=== PATIENT | female | born 1965 | race Caucasian/White ===

== ENCOUNTER 2016-09-22 23:40 | Inpatient (IN) | payer MEDICAID ==
[~2016-09-22] VITALS: Ht 139.7 cm; Wt 92.0 kg
[~2016-09-22 23:40] MED LIST: ALDA50TA2 PO; AMBI10TA PO; CEPH-460 PO; FERR325T PO; FOLI1TAB4 PO; HYDR-2374 PO; MAGN1TAB14 PO; MIDO5TAB PO; MOBI7.5T PO; NEBULIZER1 MI1; OMEP40CA2 PO; OXYGENTANK NAS.CANULA; POTA10CA PO; PROZ20CA11 PO; REGL10TA5 PO; ROPI0.25 PO; WALKER WHEELS/F1 MIS; XANA1TAB2 PO; ZOFR4TAB PO
[2016-09-22] MEDS ORDERED: SODIUM CHLOR 0.9% 1000 ML INJ 1,000 ML IV SCH (23:55)
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
[2016-09-23] VITALS (10 sets, daily range): BP systolic 92–153; BP diastolic 53–72; PULSE 58–105; RESP 16–20; TEMP 97.3–99.6; O2SAT 95–100
[2016-09-23] MEDS ORDERED: MORPHINE SULFATE 4 MG/ML INJ IV PUSH ONE
[2016-09-23] MEDS ORDERED: ONDANSETRON HCL 4 MG/2 ML VIAL IVP ONE
[2016-09-23] MEDS ORDERED: SODIUM CHLORIDE 0.9% FLUSH 10 ML FLUSH IV FLUSH PRN
[2016-09-23] MEDS ORDERED: FAMOTIDINE 20 MG/2 ML VIAL IV PUSH ONE
[2016-09-23 00:35] LABS: AUTOMATED NEUTROPHIL # 14.4 TH/MM3 (1.8-7.7); BASOPHIL % 0.2 % (0.0-2.0); EOSINOPHIL % 0.1 % (0.0-4.0); HEMATOCRIT 40.3 % (35.0-46.0); HEMO FLAGS DIFF FINAL; LYMPH % 6.4 % (9.0-44.0); MEAN CELL VOLUME 100.1 FL (80.0-100.0); MEAN CORPUSCULAR HEMOGLOBIN 32.8 PG (27.0-34.0); MEAN CORPUSCULAR HGB CONC 32.7 % (32.0-36.0); MONO % 3.4 % (0.0-8.0); NEUT % 89.9 % (16.0-70.0); PLATELET COUNT 356 TH/MM3 (150-450); RED BLOOD COUNT 4.03 MIL/MM3 (4.00-5.30); RED CELL DISTRIBUTION WIDTH 14.1 % (11.6-17.2)
[2016-09-23 00:54] LABS: ALT (GPT) 20 U/L (10-53); ANION GAP 27 MEQ/L (5-15); AST (GOT) 32 U/L (15-37); BICARBONATE 8.8 MEQ/L (21.0-32.0); BLOOD UREA NITROGEN 7 MG/DL (7-18); CHLORIDE 105 MEQ/L (98-107); GLOMERULAR FILTRATION RATE 103 ML/MIN (>89); POTASSIUM 3.5 MEQ/L (3.5-5.1); SODIUM (NA) 141 MEQ/L (136-145)
--- NOTE | 2016-09-23 00:55 | RADRPT ---
EXAM DATE/TIME: 09/23/2016 00:33 [facility] COMPARISON: CT ABDOMEN & PELVIS W/O CONTRAST, February 27, 2016, 19:43. INDICATIONS : Abdominal pain with nausea, vomiting and diarrhea. ORAL CONTRAST: No oral contrast ingested. RADIATION DOSE: 4.48 CTDIvol (mGy) MEDICAL HISTORY : Congestive heart failure. Chronic obstructive pulmonary disease. Cardiovascular diseaseCVA. Hypertens ion. Crohn's. gerd. cervical dysplasia. SURGICAL HISTORY : Appendectomy. Cholecystectomy.Back surgery. Cardiac stents. ENCOUNTER: Initial ACUITY: 1 day PAIN SCALE: 7/10 LOCATION: Bilateral abdomen TECHNIQUE: Volumetric scanning of the abdomen and pelvis was performed. Using automated exposure control and ad justment of the mA and/or kV according to patient size, radiation dose was kept as low as reasonably achievable to obtain optimal diagnostic quality images. DICOM format image data is available electro nically for review and comparison. FINDINGS: LOWER LUNGS: The visualized lower lungs are clear. No pleural effusion. LIVER: Homogeneous density without lesion noncontrast technique. There is no dilation of the biliary tree. Cholecystectomy. SPLEEN: Normal size without lesion. PANCREAS: Within normal limits. KIDNEYS: Normal in size and shape. There is no mass, stone, or hydronephrosis. ADRENAL GLANDS: Within normal limits. VASCULAR: There is no aortic aneurysm. BOWEL/MESENTERY: No dilated loops of small or large bowel. Stable appearance to the right and transverse colon with p rominence of the submucosal fatty layer. No evidence of ascites and the fat planes about the colon a re intact. ABDOMINAL WALL: Within normal limits. RETROPERITONEUM: There is no lymphadenopathy. BLADDER: No wall thickening or mass. REPRODUCTIVE: Within normal limits. INGUINAL: There is no lymphadenopathy or hernia. MUSCULOSKELETAL: Intact hardware lower lumbar spine with transpedicular screws at L5 and S1. There is induration of t he fat of the proximal right inner thigh. Stable subcutaneous lesion anterior right thigh, possibly representing sebaceous cyst. CONCLUSION: 1. No evidence of pleural effusion or ascites. 2. Induration of the subcutaneous tissues of the medial right proximal thigh. 3. No dilated loops of small or large bowel. Arnol Trujillo MD on September 23, 2016 at 0:49 Board Certified Radiologist. This report was verified electronically.
[2016-09-23 00:56] LABS: ALKALINE PHOSPHATASE 146 U/L (45-117); TOTAL BILIRUBIN ADULT 0.6 MG/DL (0.2-1.0)
[2016-09-23 02:18] LABS: BLOOD GAS VENOUS BASE EXCESS -20.1 mmol/L (-2-2); BLOOD GAS VENOUS HCO3 7 mmol/L (22-26); BLOOD GAS VENOUS O2 CONTENT 13.5 Vol % (9.0-17.0); BLOOD GAS VENOUS O2 HGB SAT 76 % (70-76); BLOOD GAS VENOUS PCO2 21 mmHg (44-48); BLOOD GAS VENOUS PO2 48 mmHg (35-40); BLOOD GAS VENOUS pH 7.16 (7.360-7.400); CRITICAL VALUE YES; FIO2 21 %; OXYGEN DEVICE ROOM AIR; STAT YES; TEMP CORR TO 98.6
[2016-09-23] MEDS ORDERED: SODIUM BICARBONATE 8.4% INJ 50 MEQ/50 ML SYR IV PUSH ONE (02:30)
[2016-09-23] MEDS ORDERED: SODIUM CHLOR 0.9% 1000 ML INJ 1,000 ML IV ONE (02:45)
[2016-09-23 02:47] LABS: BLOOD, URINE TRACE (NEG); COMMENT (UR) CULT NOT INDICATED; CULTURE IF INDICATED CULT NOT INDICATED; GLUCOSE,URINE NEG (NEG); HYALINE CAST, URINE 3 /lpf (RARE); KETONE, URINE 150 mg/dL (NEG); MUCUS URINE FEW /lpf (OCC); NITRITE,URINE NEG (NEG); URINE COLOR LIGHT-YELLOW (YELLW/STRAW)
[2016-09-23] MEDS ORDERED: NALOXONE HCL 0.4 MG/ML AMP IV PRN (04:00)
[2016-09-23] MEDS ORDERED: ONDANSETRON HCL 4 MG/2 ML VIAL IVP PRN (04:00)
[2016-09-23] MEDS ORDERED: BISACODYL 10 MG SUPP RECTAL PRN (04:00)
[2016-09-23] MEDS ORDERED: ACETAMINOPHEN 325 MG TAB PO PRN (04:00)
[2016-09-23] MEDS ORDERED: SODIUM BICARBONATE 8.4% INJ 50 MEQ in SODIUM CHLOR 0.45% 1000 ML INJ 1,000 ML IV SCH (05:00)
[2016-09-23] MEDS: HEPARIN SODIUM - SQ 10,000 UNITS/ML VIAL SQ SCH ×2 (05:23→17:06)
[2016-09-23] MEDS: MORPHINE SULFATE 4 MG/ML INJ IV PRN ×2 (05:41→22:20)
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
[2016-09-23] MEDS ORDERED: RESP: ALBUTEROL 2.5 MG/IPRATROPIUM 0.5 MG NEB (PRN) NEB (08:30)
[2016-09-23] MEDS: SODIUM CHLORIDE 0.9% FLUSH 10 ML FLUSH IV FLUSH SCH ×2 (09:00→22:02)
[2016-09-23] MEDS: FAMOTIDINE 20 MG/2 ML VIAL IV PUSH SCH ×2 (09:34→22:03)
[2016-09-23] MEDS: NICOTINE 7 MG/24 HR PATCH T-DERMAL SCH (09:35)
[2016-09-23] MEDS: ACETAMINOPHEN 325 MG TAB PO PRN ×2 (09:35→17:05)
[2016-09-23] MEDS: FLUoxetine HCL 20 MG CAP PO SCH (09:35)
[2016-09-23] MEDS: RESP: ALBUTEROL 2.5 MG/IPRATROPIUM 0.5 MG NEB (SCH) NEB ×2 (15:41→19:53)
[2016-09-23 18:50] LABS: AMPHETAMINE, URINE NEG (NEG); BARBITURATES, URINE NEG (NEG); COCAINE, URINE NEG (NEG)
[2016-09-23 21:03] LABS: BICARBONATE 17.6 MEQ/L (21.0-32.0)
[2016-09-23 21:14] LABS: POTASSIUM 2.7 MEQ/L (3.5-5.1)
[2016-09-23] MEDS ORDERED: [UNRECOGNIZED DRUG - OTHER] IV SCH (21:45)
[2016-09-23] MEDS ORDERED: SODIUM BICARBONATE IV SCH (21:45)
[2016-09-23] MEDS ORDERED: POTASSIUM CHLORIDE IV SCH (21:45)
[2016-09-23] MEDS ORDERED: POTASSIUM CHLORIDE 20 MEQ CONTROLLED RELEASE TAB PO SCH (22:00)
[2016-09-23] MEDS: SODIUM BICARBONATE 8.4% INJ 50 MEQ in SODIUM CHLOR 0.45% 1000 ML INJ 1,000 ML IV SCH (22:15)
[2016-09-23] MEDS: [UNRECOGNIZED DRUG - OTHER] IV SCH (22:15)
[2016-09-23] MEDS: POTASSIUM CHLORIDE IV SCH (22:15)
[2016-09-23] MEDS: SODIUM BICARBONATE IV SCH (22:15)
[2016-09-24] VITALS (11 sets, daily range): BP systolic 101–118; BP diastolic 56–69; PULSE 58–79; RESP 16–18; TEMP 97.3–98.1; O2SAT 95–98
[2016-09-24] MEDS: MORPHINE SULFATE 4 MG/ML INJ IV PRN ×6 (02:36→21:24)
[2016-09-24] MEDS: HEPARIN SODIUM - SQ 10,000 UNITS/ML VIAL SQ SCH ×2 (04:00→16:49)
[2016-09-24] MEDS: SODIUM CHLORIDE 0.9% FLUSH 10 ML FLUSH IV FLUSH SCH ×2 (07:30→21:25)
[2016-09-24] MEDS: REMOVE OLD PATCH T-DERMAL SCH (07:32)
[2016-09-24] MEDS: FLUoxetine HCL 20 MG CAP PO SCH (07:32)
[2016-09-24] MEDS: FOLIC ACID 1 MG TAB PO SCH (07:32)
[2016-09-24] MEDS: NICOTINE 7 MG/24 HR PATCH T-DERMAL SCH (07:32)
[2016-09-24] MEDS: THIAMINE HCL 100 MG TAB PO SCH (07:32)
[2016-09-24] MEDS: FAMOTIDINE 20 MG/2 ML VIAL IV PUSH SCH ×2 (07:33→21:23)
[2016-09-24] MEDS: LACTULOSE SYRUP 20 GM/30 ML CUP PO PRN (07:37)
[2016-09-24] MEDS: SENNOSIDES 8.6 MG TAB PO PRN (07:37)
[2016-09-24] MEDS: RESP: ALBUTEROL 2.5 MG/IPRATROPIUM 0.5 MG NEB (SCH) NEB ×4 (08:02→21:33)
[2016-09-24] MEDS: SODIUM BICARBONATE 8.4% INJ 50 MEQ in SODIUM CHLOR 0.45% 1000 ML INJ 1,000 ML IV SCH ×2 (08:06→19:15)
[2016-09-24 08:57] LABS: BICARBONATE 21.7 MEQ/L (21.0-32.0); MAGNESIUM 1.3 MG/DL (1.5-2.5)
[2016-09-24 09:19] LABS: POTASSIUM 2.7 MEQ/L (3.5-5.1)
[2016-09-24] MEDS: POTASSIUM CHLORIDE IV SCH (09:22)
[2016-09-24] MEDS: SODIUM BICARBONATE IV SCH (09:22)
[2016-09-24] MEDS: [UNRECOGNIZED DRUG - OTHER] IV SCH (09:22)
[2016-09-24] MEDS: POTASSIUM CHLOR 20 MEQ PREMIX 100 ML IV SCH ×2 (10:43→13:10)
[2016-09-24] MEDS ORDERED: POTASSIUM CHLORIDE 20 MEQ CONTROLLED RELEASE TAB PO ONE (10:45)
[2016-09-24 12:53] LABS: BASOPHIL % 0.3 % (0.0-2.0); EOSINOPHIL # 0.5 TH/MM3 (0-0.4); EOSINOPHIL % 7.5 % (0.0-4.0); HEMATOCRIT 29.5 % (35.0-46.0); HEMO FLAGS DIFF FINAL; LYMPH % 23.6 % (9.0-44.0); LYMPHOCYTE # 1.5 TH/MM3 (1.0-4.8); MEAN CELL VOLUME 97.4 FL (80.0-100.0); MEAN CORPUSCULAR HEMOGLOBIN 33.6 PG (27.0-34.0); MEAN CORPUSCULAR HGB CONC 34.5 % (32.0-36.0); MONO % 5.3 % (0.0-8.0); NEUT % 63.3 % (16.0-70.0); PLATELET COUNT 169 TH/MM3 (150-450); RED BLOOD COUNT 3.03 MIL/MM3 (4.00-5.30); RED CELL DISTRIBUTION WIDTH 13.7 % (11.6-17.2); WHITE BLOOD COUNT 6.3 TH/MM3 (4.0-11.0)
--- NOTE | 2016-09-24 13:48 | HHI.PR ---
Subjective Remarks tolerating clear liquid diet well no n/v no diarrhea still with epigastric pain, feels tired no fever no sob no cp Objective Objective Results - Vital Signs Date Time Temp Pulse Resp B/P Pulse Ox O2 Delivery O2 Flow Rate FiO2 09/24/16 11:52 97.3 68 17 101/59 97 09/24/16 09:25 72 09/24/16 08:03 96 09/24/16 08:00 97.3 66 18 113/68 98 09/24/16 04:00 97.5 68 18 102/59 98 09/24/16 02:59 66 09/24/16 00:00 98.1 79 16 118/69 95 09/23/16 22:17 110/67 09/23/16 20:00 98.0 82 20 97/53 95 09/23/16 19:56 95 21 09/23/16 18:05 18 09/23/16 16:00 97.8 80 16 96/64 97 I/O 09/23/16 09/23/16 09/23/16 09/24/16 09/24/16 09/24/16 07:00 15:00 23:00 07:00 15:00 23:00 Intake Total 700 ml 250 ml 1113 ml Balance 700 ml 250 ml 1113 ml Intake Oral 700 ml 250 ml IV Total 1113 ml # Voids 2 3 # Bowel Movements 0 0 Result Diagram: 09/24/16 1215 09/24/16 1215 Imaging Last Impressions Abdomen/Pelvis CT 09/22/16 8795 Signed Impressions: Service Date/Time: Friday, September 23, 2016 00:33 - CONCLUSION: 1. No evidence of pleural effusion or ascites. 2. Induration of the subcutaneous tissues of the medial right proximal thigh. 3. No dilated loops of small or large bowel. Arnol Trujillo MD Other Results Laboratory Tests Test 09/23/16 09/24/16 19:42 12:15 Sodium Level 140 140 Potassium Level 2.7 2.7 Chloride Level 110 109 Carbon Dioxide Level 17.6 21.7 Anion Gap 12 9 Blood Urea Nitrogen 5 4 Creatinine 0.40 0.24 Estimat Glomerular Filtration 168 302 Rate Random Glucose 85 97 Calcium Level 7.7 7.8 White Blood Count 6.3 Red Blood Count 3.03 Hemoglobin 10.2 Hematocrit 29.5 Mean Corpuscular Volume 97.4 Mean Corpuscular Hemoglobin 33.6 Mean Corpuscular Hemoglobin 34.5 Concent Red Cell Distribution Width 13.7 Platelet Count 169 Mean Platelet Volume 7.4 Neutrophils (%) (Auto) 63.3 Lymphocytes (%) (Auto) 23.6 Monocytes (%) (Auto) 5.3 Eosinophils (%) (Auto) 7.5 Basophils (%) (Auto) 0.3 Neutrophils # (Auto) 4.0 Lymphocytes # (Auto) 1.5 Monocytes # (Auto) 0.3 Eosinophils # (Auto) 0.5 Basophils # (Auto) 0.0 CBC Comment DIFF FINAL Differential Comment Magnesium Level 1.3 ROS General: No: Fatigue, Weakness HEENT: No: Sore Throat, Dysphagia Cardiac: No: Chest Pain, Edema, Palpitations Pulmonary: Wheezing, No: Cough, SOB GI: Abdominal Pain /SET UP MACHINIST: No: Dysuria, Urgency Neuro/MS: No: Lightheaded, Confusion Psych: No: Anxiety, Depression Skin: No: Itching, Rash Physical Exam Physical Exam GENERAL: This is a mal-nourished female, appears older than stated age. SKIN: Cool and dry. Poor skin turgor, bruising to arms HEAD: Atraumatic. Normocephalic. No temporal or scalp tenderness. EYES: Pupils equal round and reactive. Extraocular motions intact. No scleral icterus. No injection or drainage. ENT: Nose without bleeding, purulent drainage or septal hematoma. Throat without erythema, tonsillar hypertrophy or exudate. Uvula midline. Airway patent. NECK: Trachea midline. No JVD or lymphadenopathy. Supple, nontender, no meningeal signs. CARDIOVASCULAR: Regular rate and rhythm without murmurs, gallops, or rubs. RESPIRATORY: Exp. wheezes GASTROINTESTINAL: Abdomen soft, diffuse tenderness more to epigastric area, slightly distended. No hepato-splenomegaly, or palpable masses. No guarding. MUSCULOSKELETAL: Extremities without clubbing, cyanosis, or edema. No joint tenderness, effusion, or edema noted. No calf tenderness. Negative Homans sign bilaterally. NEUROLOGICAL: Awake, oriented x 3.More awake, oriented x 3. Following commands, no focal deficits. Urinary Catheter: No Vascular Central Line Catheter: No A/P Diagnosis: (1) Abdominal pain (2) High anion gap metabolic acidosis (3) Electrolyte imbalance (4) Diarrhea (5) Nausea & vomiting (6) CAD (coronary artery disease) (7) Anxiety and depression (8) Hx TIA/stroke w/o resid (9) Chronic pain (10) COPD exacerbation (11) Weight loss (12) Malnourished Assessment and Plan 51-year-old female with history of alcohol abuse, pancreatitis. Presented to the emergency room with complaint of epigastric pain, diarrhea, nausea, vomiting. Has had poor appetite. Evaluated in the emergency room, found severely dehydrated with metabolic acidosis. -Continue with sodium bicarbonate drip at 70 an hour -replace K and mag -acidosis improving Continue with antiemetics when necessary Monitor for diarrhea, will check stools for C. difficile. No diarrhea -Continue with Pepcid 20 mg IV twice a day -adv to heart healthy diet History of alcohol abuse, blood alcohol level was negative. Indicates that last drink was Friday. Monitor for withdrawal symptoms Folic acid and thiamine will be started -Has been counseled about alcohol abuse -stable, no tremors COPD stable Tobacco abuse -Duo nebs as needed, -Tobacco abuse counseling, Nicotine patch Anxiety and depression Continue with home medication Chronic back pain -Continue with Tylenol as needed -Morphine for severe pain Weight loss Mal-nourished Had recent GI workup at [facility], was evaluated by Dr. Sanchez -Dietitian input appreciated, will add Enlive Pepcid for GI prophylaxis Heparin for DVT prophylaxis Labs in [facility] [employer] activity D/W RN D/W Dr. Peña D/W pt. This patient was seen by myself and Dr. Peña. This note is written on his behalf Problem Qualifiers (1) Abdominal pain: Qualified Code: R10.84 - Generalized abdominal pain (2) Diarrhea: Qualified Code: R19.7 - Diarrhea, unspecified type (3) Nausea & vomiting: Qualified Code: R11.2 - Nausea and vomiting, intractability of vomiting not specified, unspecified vomiting type (4) CAD (coronary artery disease): Qualified Code: I25.118 - Coronary artery disease involving [place] coronary artery of [place] heart with other form of angina pectoris (5) Chronic pain: Qualified Code: G89.4 - Chronic pain syndrome Jayne GuzmanP Sep 24, 2016 13:48
[2016-09-24] MEDS ORDERED: MAGNESIUM SULFATE 1 GM PREMIX 100 ML IV SCH (14:00)
[2016-09-24] MEDS: MAGNESIUM SULFATE 1 GM PREMIX 100 ML IV SCH ×4 (16:00→22:29)
[2016-09-25] VITALS (10 sets, daily range): BP systolic 90–114; BP diastolic 57–69; PULSE 62–86; RESP 16–20; TEMP 97.1–98.2; O2SAT 91–99
[2016-09-25] MEDS: MORPHINE SULFATE 4 MG/ML INJ IV PRN ×5 (00:23→21:29)
[2016-09-25] MEDS: HEPARIN SODIUM - SQ 10,000 UNITS/ML VIAL SQ SCH ×2 (03:34→16:05)
[2016-09-25] MEDS: SODIUM BICARBONATE 8.4% INJ 50 MEQ in SODIUM CHLOR 0.45% 1000 ML INJ 1,000 ML IV SCH (03:35)
[2016-09-25] MEDS ORDERED: SODIUM BICARBONATE 8.4% INJ 50 MEQ in SODIUM CHLOR 0.45% 1000 ML INJ 1,000 ML IV SCH (04:00)
[2016-09-25] MEDS: FLUoxetine HCL 20 MG CAP PO SCH (07:29)
[2016-09-25] MEDS: THIAMINE HCL 100 MG TAB PO SCH (07:29)
[2016-09-25] MEDS: FOLIC ACID 1 MG TAB PO SCH (07:29)
[2016-09-25] MEDS: FAMOTIDINE 20 MG/2 ML VIAL IV PUSH SCH ×2 (07:29→19:57)
[2016-09-25] MEDS: SODIUM CHLORIDE 0.9% FLUSH 10 ML FLUSH IV FLUSH SCH ×2 (07:30→19:57)
[2016-09-25] MEDS: NICOTINE 7 MG/24 HR PATCH T-DERMAL SCH (07:30)
[2016-09-25] MEDS: RESP: ALBUTEROL 2.5 MG/IPRATROPIUM 0.5 MG NEB (SCH) NEB ×4 (07:59→20:28)
[2016-09-25 08:22] LABS: BICARBONATE 27.4 MEQ/L (21.0-32.0)
[2016-09-25] MEDS: REMOVE OLD PATCH T-DERMAL SCH (09:00)
--- NOTE | 2016-09-25 12:29 | HHI.PR ---
Subjective Remarks Patient has some cough dry in nature Has some chest congestion Some mild abdominal ache No nausea or vomiting No diarrhea No other complaint Review of system for 10 point system otherwise unremarkable Objective Objective Results - Vital Signs Date Time Temp Pulse Resp B/P Pulse Ox O2 Delivery O2 Flow Rate FiO2 09/25/16 08:00 97.8 86 18 114/65 95 09/25/16 07:59 96 Nasal Cannula 2.00 09/25/16 07:30 62 09/25/16 04:00 97.6 78 20 99/69 96 09/25/16 00:00 97.3 75 16 97/67 96 09/24/16 21:35 95 21 09/24/16 21:22 58 09/24/16 20:00 98.1 74 16 101/62 97 09/24/16 16:39 97.3 70 18 102/56 97 I/O 09/24/16 09/24/16 09/24/16 09/25/16 09/25/16 09/25/16 07:00 15:00 23:00 07:00 15:00 23:00 Intake Total 250 ml 1113 ml 2047 ml 1316 ml Balance 250 ml 1113 ml 2047 ml 1316 ml Intake Oral 250 ml 960 ml 480 ml IV Total 1113 ml 1087 ml 836 ml # Voids 3 5 3 # Bowel Movements 0 0 Result Diagram: 09/24/16 1215 09/25/16 0744 Imaging Last Impressions Abdomen/Pelvis CT 09/22/16 2865 Signed Impressions: Service Date/Time: Friday, September 23, 2016 00:33 - CONCLUSION: 1. No evidence of pleural effusion or ascites. 2. Induration of the subcutaneous tissues of the medial right proximal thigh. 3. No dilated loops of small or large bowel. Arnol Trujillo MD Other Results Laboratory Tests Test 09/24/16 09/25/16 16:04 07:44 Potassium Level 3.2 3.0 Sodium Level 143 Chloride Level 108 Carbon Dioxide Level 27.4 Anion Gap 8 Blood Urea Nitrogen 2 Creatinine 0.28 Estimat Glomerular Filtration 253 Rate Random Glucose 95 Calcium Level 8.2 Physical Exam Physical Exam GENERAL: This is a mal-nourished female, appears older than stated age. Lying on bed without any apparent distress SKIN: Cool and dry. Poor skin turgor, bruising to arms HEAD: Atraumatic. Normocephalic. EYES: Extraocular motions intact. No scleral icterus. No injection or drainage. ENT: Airway patent. NECK: Trachea midline. Supple CARDIOVASCULAR: Regular rate and rhythm without murmurs, gallops, or rubs. RESPIRATORY: Mild Exp. wheezes . No Rals rhonchi's. Patient has coarse breathing GASTROINTESTINAL: Abdomen soft, questionable mild tenderness more to epigastric area, nondistended. No hepato-splenomegaly, or palpable masses. No guarding. Positive bowel sounds MUSCULOSKELETAL: Extremities without clubbing, cyanosis, or edema. No joint tenderness, effusion, or edema noted.. NEUROLOGICAL: Awake, oriented x 3.More awake, oriented x 3. Following commands, no focal deficits. 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 Presented to the emergency room with complaint of epigastric pain, diarrhea, nausea, vomiting. Has had poor appetite. Evaluated in the emergency room, found severely dehydrated with metabolic acidosis. -Discontinue IV fluids -replace K. -acidosis improved Continue with antiemetics when necessary No more diarrhea, unable to check stools for C. difficile as patient has no diarrhea -Continue with Pepcid 20 mg IV twice a day -adv to regular diet as patient doesn't like heart healthy diet History of alcohol abuse, blood alcohol level was negative. Indicates that last drink was Friday. Monitor for withdrawal symptoms. So far none Folic acid and thiamine -Has been counseled about alcohol abuse -stable, no tremors COPD mild exacerbation Tobacco abuse -Duo nebs as needed, X-ray chest Cough medication -Tobacco abuse counseling, Nicotine patch Anxiety and depression Continue with home medication Chronic back pain -Continue with Tylenol as needed -By mouth pain medication on when necessary basis Weight loss Mal-nourished Had recent GI workup at [facility], was evaluated by Dr. Sanchez -Dietitian input appreciated Pepcid for GI prophylaxis Heparin for DVT prophylaxis Labs in inc. activity D/W RN D/W pt. Raymundo Peña MD Sep 25, 2016 12:28
[2016-09-25] MEDS ORDERED: POTASSIUM CHLORIDE 25 MEQ EFFERVESCENT TAB PO ONE (13:35)
[2016-09-25] MEDS ORDERED: POTASSIUM CHLORIDE 20 MEQ CONTROLLED RELEASE TAB PO ONE (13:40)
--- NOTE | 2016-09-25 13:45 | RADRPT ---
EXAM DATE/TIME: 09/25/2016 13:29 [place] COMPARISON: CHEST PA & LAT, August 01, 2015, 13:05. INDICATIONS : Short of breath and chest pain. MEDICAL HISTORY : Cardiovascular disease. Crohns disease. Hypertension.Cirrhosis SURGICAL HISTORY : Appendectomy. ENCOUNTER: Subsequent ACUITY: 3 days PAIN SCORE: 7/10 LOCATION: Bilateral chest FINDINGS: Encapsulated breast implants are noted. There are small bilateral pleural effusions. Heart is minim ally enlarged. The pulmonary vascularity is normal.. CONCLUSION: Small bilateral pleural effusions. There is no overt congestive failure. Ari Penny MD FACR on September 25, 2016 at 13:42 Board Certified Radiologist. This report was verified electronically.
[2016-09-25] MEDS: ACETAMINOPHEN/HYDROcodone 325 MG/7.5 MG TAB PO PRN ×2 (14:05→18:01)
[2016-09-25] MEDS: BENZONATATE 100 MG CAP PO PRN (16:05)
[2016-09-26] VITALS (12 sets, daily range): BP systolic 88–121; BP diastolic 59–77; PULSE 72–92; RESP 16–20; TEMP 97.1–98.2; O2SAT 90–100
[2016-09-26] MEDS: ACETAMINOPHEN/HYDROcodone 325 MG/7.5 MG TAB PO PRN ×5 (01:01→22:33)
[2016-09-26] MEDS: LACTULOSE SYRUP 20 GM/30 ML CUP PO PRN (03:44)
[2016-09-26] MEDS: SENNOSIDES 8.6 MG TAB PO PRN (03:44)
[2016-09-26] MEDS: BENZONATATE 100 MG CAP PO PRN (04:19)
[2016-09-26] MEDS: HEPARIN SODIUM - SQ 10,000 UNITS/ML VIAL SQ SCH ×2 (04:20→15:10)
[2016-09-26] MEDS: FLUoxetine HCL 20 MG CAP PO SCH (07:44)
[2016-09-26] MEDS: SODIUM CHLORIDE 0.9% FLUSH 10 ML FLUSH IV FLUSH SCH ×2 (07:44→19:42)
[2016-09-26] MEDS: THIAMINE HCL 100 MG TAB PO SCH (07:44)
[2016-09-26] MEDS: FOLIC ACID 1 MG TAB PO SCH (07:44)
[2016-09-26] MEDS: NICOTINE 7 MG/24 HR PATCH T-DERMAL SCH (07:44)
[2016-09-26] MEDS: REMOVE OLD PATCH T-DERMAL SCH (07:44)
[2016-09-26] MEDS: FAMOTIDINE 20 MG/2 ML VIAL IV PUSH SCH ×2 (07:44→19:42)
[2016-09-26] MEDS: RESP: ALBUTEROL 2.5 MG/IPRATROPIUM 0.5 MG NEB (SCH) NEB ×4 (07:50→20:31)
[2016-09-26 07:53] LABS: HEMATOCRIT 28.4 % (35.0-46.0); MEAN CELL VOLUME 98.9 FL (80.0-100.0); MEAN CORPUSCULAR HGB CONC 33.3 % (32.0-36.0); PLATELET COUNT 140 TH/MM3 (150-450); RED BLOOD COUNT 2.87 MIL/MM3 (4.00-5.30); RED CELL DISTRIBUTION WIDTH 14.1 % (11.6-17.2); REVIEW FLAG FINAL; WHITE BLOOD COUNT 5.7 TH/MM3 (4.0-11.0)
[2016-09-26 08:19] LABS: BICARBONATE 28.3 MEQ/L (21.0-32.0); MAGNESIUM 1.5 MG/DL (1.5-2.5)
[2016-09-26 08:55] LABS: POTASSIUM 2.8 MEQ/L (3.5-5.1)
[2016-09-26] MEDS ORDERED: POTASSIUM CHLORIDE 20 MEQ CONTROLLED RELEASE TAB PO ONE (09:30)
[2016-09-26] MEDS ORDERED: POTASSIUM CHLOR 20 MEQ PREMIX 100 ML IV ONE (09:30)
--- NOTE | 2016-09-26 11:35 | HHI.PR ---
Subjective Remarks Patient has some cough dry in naturewith some sob and chest congestion No nausea or vomiting No diarrhea No other complaint Review of system for 10 point system otherwise unremarkable Objective Objective Results - Vital Signs Date Time Temp Pulse Resp B/P Pulse Ox O2 Delivery O2 Flow Rate FiO2 09/26/16 08:00 97.6 78 20 96/67 94 09/26/16 07:50 95 Nasal Cannula 3.00 09/26/16 07:40 78 09/26/16 04:00 97.1 75 16 100/59 98 09/26/16 00:00 97.4 80 17 94/69 100 09/25/16 21:00 71 09/25/16 20:31 92 21 09/25/16 19:00 98.2 71 18 90/58 91 09/25/16 16:00 97.8 74 18 93/63 98 09/25/16 12:00 97.1 74 18 95/57 99 I/O 09/25/16 09/25/16 09/25/16 09/26/16 09/26/16 09/26/16 07:00 15:00 23:00 07:00 15:00 23:00 Intake Total 1316 ml 1080 ml 480 ml Balance 1316 ml 1080 ml 480 ml Intake Oral 480 ml 1080 ml 480 ml IV Total 836 ml # Voids 3 5 2 # Bowel Movements 0 0 Result Diagram: 09/26/16 0640 09/26/16 0640 Imaging Last Impressions Abdomen/Pelvis CT 09/22/16 6133 Signed Impressions: Service Date/Time: Friday, September 23, 2016 00:33 - CONCLUSION: 1. No evidence of pleural effusion or ascites. 2. Induration of the subcutaneous tissues of the medial right proximal thigh. 3. No dilated loops of small or large bowel. Arnol Trujillo MD Other Results Laboratory Tests Test 09/26/16 06:40 White Blood Count 5.7 Red Blood Count 2.87 Hemoglobin 9.5 Hematocrit 28.4 Mean Corpuscular Volume 98.9 Mean Corpuscular Hemoglobin 33.0 Mean Corpuscular Hemoglobin 33.3 Concent Red Cell Distribution Width 14.1 Platelet Count 140 Mean Platelet Volume 8.4 Sodium Level 144 Potassium Level 2.8 Chloride Level 108 Carbon Dioxide Level 28.3 Anion Gap 8 Blood Urea Nitrogen 1 Creatinine 0.26 Estimat Glomerular Filtration 276 Rate Random Glucose 93 Calcium Level 8.6 Magnesium Level 1.5 Physical Exam Physical Exam GENERAL: This is a mal-nourished female, appears older than stated age. Lying on bed without any apparent distress SKIN: Cool and dry. Poor skin turgor, bruising to arms HEAD: Atraumatic. Normocephalic. EYES: Extraocular motions intact. No scleral icterus. No injection or drainage. ENT: Airway patent. NECK: Trachea midline. Supple CARDIOVASCULAR: Regular rate and rhythm without murmurs, gallops, or rubs. RESPIRATORY: Mild Exp. wheezes . No Rals rhonchi's. Patient has coarse breathing with some dec air entry at bases GASTROINTESTINAL: Abdomen soft, questionable mild tenderness more to epigastric area, nondistended. No hepato-splenomegaly, or palpable masses. No guarding. Positive bowel sounds MUSCULOSKELETAL: Extremities without clubbing, cyanosis, or edema. No joint tenderness, effusion, or edema noted.. NEUROLOGICAL: Awake, oriented x 3.More awake, oriented x 3. Following commands, no focal deficits. 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 Presented to the emergency room with complaint of epigastric pain, diarrhea, nausea, vomiting. Has had poor appetite. Evaluated in the emergency room, found severely dehydrated with metabolic acidosis. -off of IV fluids -replace K. for low K will give Mg as well -acidosis improved Continue with antiemetics when necessary No more diarrhea, unable to check stools for C. difficile as patient has no diarrhea -Continue with Pepcid 20 mg IV twice a day -adv to regular diet as patient doesn't like heart healthy diet History of alcohol abuse, blood alcohol level was negative. Indicates that last drink was Friday. Monitor for withdrawal symptoms. So far none Folic acid and thiamine -Has been counseled about alcohol abuse -stable, no tremors COPD mild exacerbation plan for short course of iv staroid Tobacco abuse -Duo nebs as needed, X-ray chest report reviewed Cough medication -Tobacco abuse counseling, Nicotine patch Anxiety and depression Continue with home medication, stable Chronic back pain -Continue with Tylenol as needed -By mouth pain medication on when necessary basis Weight loss Mal-nourished Had recent GI workup at [facility], was evaluated by Dr. Sanchez -Dietitian input appreciated Pepcid for GI prophylaxis Heparin for DVT prophylaxis Labs in [employer] activity D/W RN D/W pt. Raymundo Peña MD Sep 26, 2016 11:35
[2016-09-26] MEDS: methylPREDNISolone SOD SUCC 40 MG/1 ML VIAL IV PUSH SCH ×2 (14:13→22:33)
[2016-09-26] MEDS: MORPHINE SULFATE 4 MG/ML INJ IV PRN (15:07)
[2016-09-26] MEDS: guaiFENesin/DEXTROMETHORPHAN 200 MG/20 MG/10 ML CUP PO PRN (19:41)
[2016-09-27] VITALS (12 sets, daily range): BP systolic 105–121; BP diastolic 59–78; PULSE 71–90; RESP 16–18; TEMP 97.1–98.3; O2SAT 93–98
[2016-09-27] MEDS: MORPHINE SULFATE 4 MG/ML INJ IV PRN ×2 (01:33→10:10)
[2016-09-27] MEDS: ZOLPIDEM TARTRATE 5 MG TAB PO PRN ×2 (02:26→21:57)
[2016-09-27] MEDS: ACETAMINOPHEN/HYDROcodone 325 MG/7.5 MG TAB PO PRN ×3 (02:28→13:26)
[2016-09-27] MEDS: HEPARIN SODIUM - SQ 10,000 UNITS/ML VIAL SQ SCH ×2 (05:16→16:16)
[2016-09-27] MEDS: methylPREDNISolone SOD SUCC 40 MG/1 ML VIAL IV PUSH SCH ×3 (05:16→21:57)
[2016-09-27 07:48] LABS: POTASSIUM 3.8 MEQ/L (3.5-5.1)
[2016-09-27] MEDS: RESP: ALBUTEROL 2.5 MG/IPRATROPIUM 0.5 MG NEB (SCH) NEB ×2 (08:11→11:33)
[2016-09-27] MEDS: FAMOTIDINE 20 MG/2 ML VIAL IV PUSH SCH ×2 (08:45→21:57)
[2016-09-27] MEDS: FOLIC ACID 1 MG TAB PO SCH (08:45)
[2016-09-27] MEDS: FLUoxetine HCL 20 MG CAP PO SCH (08:45)
[2016-09-27] MEDS: THIAMINE HCL 100 MG TAB PO SCH (08:45)
[2016-09-27] MEDS: SODIUM CHLORIDE 0.9% FLUSH 10 ML FLUSH IV FLUSH SCH ×2 (08:46→21:00)
[2016-09-27] MEDS: NICOTINE 7 MG/24 HR PATCH T-DERMAL SCH (08:46)
[2016-09-27] MEDS: REMOVE OLD PATCH T-DERMAL SCH (08:47)
[2016-09-27] MEDS: guaiFENesin/DEXTROMETHORPHAN 200 MG/20 MG/10 ML CUP PO PRN ×2 (10:10→23:29)
[2016-09-27] MEDS: SODIUM CHLORIDE 0.9% FLUSH 10 ML FLUSH IV FLUSH PRN ×2 (10:11→13:26)
--- NOTE | 2016-09-27 11:02 | HHI.PR ---
Subjective Remarks Patient has some cough dry in nature and wheezing with some sob and chest congestion No nausea or vomiting No diarrhea No other complaint Review of system for 10 point system otherwise unremarkable Objective Objective Results - Vital Signs Date Time Temp Pulse Resp B/P Pulse Ox O2 Delivery O2 Flow Rate FiO2 09/27/16 08:13 97 Nasal Cannula 2.00 09/27/16 08:00 97.4 77 18 121/77 93 09/27/16 07:01 Nasal Cannula 2.00 09/27/16 06:46 89 09/27/16 04:00 97.5 80 16 118/59 95 09/27/16 00:00 98.3 90 16 109/61 96 09/26/16 21:00 92 09/26/16 20:33 98 Nasal Cannula 3.00 09/26/16 20:00 97.9 82 18 112/72 96 09/26/16 16:12 90 Nasal Cannula 3.00 09/26/16 15:57 98.2 72 18 121/77 97 09/26/16 15:05 72 121/71 09/26/16 11:59 97.6 76 18 88/59 92 I/O 09/26/16 09/26/16 09/26/16 09/27/16 09/27/16 09/27/16 07:00 15:00 23:00 07:00 15:00 23:00 Intake Total 480 ml 480 ml 480 ml 480 ml Balance 480 ml 480 ml 480 ml 480 ml Intake Oral 480 ml 480 ml 480 ml 480 ml # Voids 2 5 2 2 # Bowel Movements 0 0 0 0 Result Diagram: 09/26/16 0640 09/27/16 0706 Imaging Last Impressions Abdomen/Pelvis CT 09/22/16 2453 Signed Impressions: Service Date/Time: Friday, September 23, 2016 00:33 - CONCLUSION: 1. No evidence of pleural effusion or ascites. 2. Induration of the subcutaneous tissues of the medial right proximal thigh. 3. No dilated loops of small or large bowel. Arnol Trujillo MD Other Results Laboratory Tests Test 09/26/16 09/27/16 17:18 07:06 Potassium Level 3.3 3.8 Sodium Level 139 Chloride Level 105 Carbon Dioxide Level 27.0 Anion Gap 7 Blood Urea Nitrogen 2 Creatinine 0.35 Estimat Glomerular Filtration 196 Rate Random Glucose 156 Calcium Level 9.3 Physical Exam Physical Exam GENERAL: This is a mal-nourished female, appears older than stated age. Lying on bed without any apparent distress SKIN: Cool and dry. Poor skin turgor, bruising to arms HEAD: Atraumatic. Normocephalic. EYES: Extraocular motions intact. No scleral icterus. No injection or drainage. ENT: Airway patent. NECK: Trachea midline. Supple CARDIOVASCULAR: Regular rate and rhythm without murmurs, gallops, or rubs. RESPIRATORY: Some Exp. wheezes scattered . No Rals rhonchi's. Patient has coarse breathing with some dec air entry at bases GASTROINTESTINAL: Abdomen soft, questionable mild tenderness more to epigastric area, nondistended. No hepato-splenomegaly, or palpable masses. No guarding. Positive bowel sounds MUSCULOSKELETAL: Extremities without clubbing, cyanosis, or edema. No joint tenderness, effusion, or edema noted.. NEUROLOGICAL: Awake, oriented x 3.More awake, oriented x 3. Following commands, no focal deficits. 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 Presented to the emergency room with complaint of epigastric pain, diarrhea, nausea, vomiting. Has had poor appetite. Evaluated in the emergency room, found severely dehydrated with metabolic acidosis. -off of IV fluids -Within normal limits at same level -acidosis improved Continue with antiemetics when necessary No more diarrhea, unable to check stools for C. difficile as patient has no diarrhea -Continue with Pepcid 20 mg IV twice a day -adv to regular diet as patient doesn't like heart healthy diet History of alcohol abuse, blood alcohol level was negative. Indicates that last drink was Friday. Monitor for withdrawal symptoms. So far none Folic acid and thiamine -Has been counseled about alcohol abuse -stable, no tremors COPD mild exacerbation plan for iv staroid Tobacco abuse -Duo nebs as needed, X-ray chest report reviewed Cough medication -Tobacco abuse counseling, Nicotine patch Anxiety and depression Continue with home medication, stable Chronic back pain -Continue with Tylenol as needed -By mouth pain medication on when necessary basis Weight loss Mal-nourished Had recent GI workup at [facility], was evaluated by Dr. Sanchez -Dietitian input appreciated Pepcid for GI prophylaxis Heparin for DVT prophylaxis inc. activity advised again encouraged D/W RN D/W pt. Likely DC home tomorrow Raymundo Peña MD Sep 27, 2016 11:02
[2016-09-27] MEDS: ACETAMINOPHEN/HYDROcodone 325 MG/10 MG TAB PO PRN ×2 (17:19→22:01)
[2016-09-28] VITALS: BP 133/78; PULSE 69; RESP 22; TEMP 98; O2SAT 97
[2016-09-28] MEDS ORDERED: diphenhydrAMINE HCL 25 MG CAP PO SCH
[2016-09-28] MEDS ORDERED: diphenhydrAMINE HCL 25 MG CAP PO ONE (00:30)
[2016-09-28 04:00] VITALS: BP 117/76; PULSE 69; RESP 20; TEMP 97.1; O2SAT 96
[2016-09-28] MEDS: ACETAMINOPHEN/HYDROcodone 325 MG/10 MG TAB PO PRN (04:20)
[2016-09-28] MEDS: HEPARIN SODIUM - SQ 10,000 UNITS/ML VIAL SQ SCH (04:20)
[2016-09-28] MEDS: methylPREDNISolone SOD SUCC 40 MG/1 ML VIAL IV PUSH SCH (06:16)
[2016-09-28 08:00] VITALS: BP 124/74; PULSE 62; RESP 14; TEMP 95.2; O2SAT 94
[2016-09-28] MEDS: REMOVE OLD PATCH T-DERMAL SCH (09:00)
[2016-09-28] MEDS: THIAMINE HCL 100 MG TAB PO SCH (09:00)
[2016-09-28] MEDS: NICOTINE 7 MG/24 HR PATCH T-DERMAL SCH (09:24)
[2016-09-28] MEDS: FLUoxetine HCL 20 MG CAP PO SCH (09:25)
[2016-09-28] MEDS: FOLIC ACID 1 MG TAB PO SCH (09:25)
[2016-09-28] MEDS: SODIUM CHLORIDE 0.9% FLUSH 10 ML FLUSH IV FLUSH SCH (09:26)
[2016-09-28] MEDS: FAMOTIDINE 20 MG/2 ML VIAL IV PUSH SCH (09:26)
[2016-09-28] MEDS ORDERED: FOLI1TAB6 PO (11:40)
[2016-09-28] MEDS ORDERED: MEDR4PAK PO (11:40)
[2016-09-28] MEDS ORDERED: GNP100TA3 PO (11:40)
[2016-09-28] MEDS ORDERED: HYDR-2374 PO (11:40)
[2016-09-28] MEDS ORDERED: DEXT10SY2 PO (11:40)
--- NOTE | 2016-09-28 11:44 | HHI.PR ---
Subjective Remarks Patient has mild cough dry in nature and no sob and chest congestion No nausea or vomiting No diarrhea No other complaint Review of system for 10 point system otherwise unremarkable Objective Objective Results - Vital Signs Date Time Temp Pulse Resp B/P Pulse Ox O2 Delivery O2 Flow Rate FiO2 09/28/16 08:00 95.2 62 14 124/74 94 09/28/16 04:00 97.1 69 20 117/76 96 09/28/16 00:00 98.0 69 22 133/78 97 09/27/16 20:00 97.7 71 18 116/67 95 09/27/16 18:34 Nasal Cannula 2.00 09/27/16 17:57 94 Nasal Cannula 2.00 09/27/16 16:00 97.2 84 18 119/78 94 09/27/16 13:41 86 09/27/16 12:00 97.1 88 18 105/69 95 09/27/16 11:50 82 I/O 09/27/16 09/27/16 09/27/16 09/28/16 09/28/16 09/28/16 07:00 15:00 23:00 07:00 15:00 23:00 Intake Total 480 ml 600 ml 750 ml 400 ml Balance 480 ml 600 ml 750 ml 400 ml Intake Oral 480 ml 600 ml 750 ml 400 ml # Voids 2 5 1 2 # Bowel Movements 0 0 0 0 Result Diagram: 09/26/16 0640 09/27/16 0706 Imaging Last Impressions Abdomen/Pelvis CT 09/22/16 1547 Signed Impressions: Service Date/Time: Friday, September 23, 2016 00:33 - CONCLUSION: 1. No evidence of pleural effusion or ascites. 2. Induration of the subcutaneous tissues of the medial right proximal thigh. 3. No dilated loops of small or large bowel. Arnol Trujillo MD Physical Exam Physical Exam GENERAL: This is a mal-nourished female, appears older than stated age. Lying on bed without any apparent distress SKIN: Cool and dry. Poor skin turgor, bruising to arms HEAD: Atraumatic. Normocephalic. EYES: Extraocular motions intact. No scleral icterus. No injection or drainage. ENT: Airway patent. NECK: Trachea midline. Supple CARDIOVASCULAR: Regular rate and rhythm without murmurs, gallops, or rubs. RESPIRATORY: Occasional bibasally Exp. wheezes. No Rals rhonchi's. Otherwise good air entry GASTROINTESTINAL: Abdomen soft, questionable mild tenderness more to epigastric area, nondistended. No hepato-splenomegaly, or palpable masses. No guarding. Positive bowel sounds MUSCULOSKELETAL: Extremities without clubbing, cyanosis, or edema. No joint tenderness, effusion, or edema noted.. NEUROLOGICAL: Awake, oriented x 3.More awake, oriented x 3. Following commands, no focal deficits. 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 Presented to the emergency room with complaint of epigastric pain, diarrhea, nausea, vomiting. Has had poor appetite. Evaluated in the emergency room, found severely dehydrated with metabolic acidosis. -off of IV fluids -Within normal limits at same level -acidosis improved Continue with antiemetics when necessary No more diarrhea, unable to check stools for C. difficile as patient has no diarrhea -on Pepcid 20 mg IV twice a day -Tolerating regular diet History of alcohol abuse, blood alcohol level was negative. Indicates that last drink was Friday. Monitor for withdrawal symptoms. So far none Folic acid and thiamine -Has been counseled about alcohol abuse -stable, no tremors COPD mild exacerbation plan for iv staroid Tobacco abuse. Counseling given again today -Duo nebs as needed, X-ray chest report reviewed Cough medication -Tobacco abuse counseling, Nicotine patch Anxiety and depression, stable Continue with home medication, stable Chronic back pain -Continue with Tylenol as needed -By mouth pain medication on when necessary basis Weight loss Mal-nourished Had recent GI workup at [facility], was evaluated by Dr. Sanchez -Dietitian input appreciated Pepcid for GI prophylaxis Heparin for DVT prophylaxis inc. activity advised again encouraged D/W RN D/W pt. DC home today Raymundo Peña MD Sep 28, 2016 11:44
== END 2016-09-28 13:13 | disposition home or self-care (01) | DRG 641 ==
LOC: NEPE 23:40 → NEDA 09-23 02:39 → OBSVTOIN 09-23 03:54 → N06A 09-23 07:22
PROVIDERS: ADMIT Specialist; ATTEND Specialist
DX: E87.2 Acidosis (principal); E86.0 Dehydration; K76.0 Fatty (change of) liver, not elsewhere classified; E46 Unspecified protein-calorie malnutrition; J44.1 Chronic obstructive pulmonary disease with (acute) exacerbation; Z99.81 Dependence on supplemental oxygen; F32.9 Major depressive disorder, single episode, unspecified; F41.9 Anxiety disorder, unspecified; E87.6 Hypokalemia; G89.4 Chronic pain syndrome; M54.9 Dorsalgia, unspecified; F17.210 Nicotine dependence, cigarettes, uncomplicated; R19.7 Diarrhea, unspecified; M19.90 Unspecified osteoarthritis, unspecified site; K21.9 Gastro-esophageal reflux disease without esophagitis; F10.10 Alcohol abuse, uncomplicated; Y90.0 Blood alcohol level of less than 20 mg/100 ml; I25.10 Atherosclerotic heart disease of native coronary artery without angina pectoris; Z95.5 Presence of coronary angioplasty implant and graft; Z87.410 Personal history of cervical dysplasia; Z86.73 Personal history of transient ischemic attack (TIA), and cerebral infarction without residual deficits
CPT/HCPCS: 71020; 74176; 80048; 80053; 80307; 81001; 82805; 83605; 83690; 83735; 84132; 85025; 85027; 94640; 94664; 96374; 96375; J1644; J2270; J2405; J2920; J3475; J3480; J7030

== ENCOUNTER 2016-11-25 19:52 | Emergency (ER) | payer MEDICAID ==
[~2016-11-25] VITALS: Ht 142.2 cm; Wt 37.0 kg
[~2016-11-25 19:52] MED LIST changes: -CEPH-460 PO; +DEXT10SY2 PO; +FOLI1TAB6 PO; +GNP100TA3 PO; +MEDR4PAK PO
[2016-11-25] MEDS ORDERED: ASPIRIN 325 MG TAB PO ONE (20:00)
[2016-11-25] MEDS ORDERED: SODIUM CHLORIDE 0.9% FLUSH 10 ML FLUSH IVF PRN (20:00)
[2016-11-25 20:20] VITALS: BP 113/75; PULSE 87; RESP 18; TEMP 98.3; O2SAT 95
[2016-11-25 20:25] VITALS: BP_SYST 130; BP_SYST 138; BP_DIAS 83; BP_DIAS 91; PULSE 90
[2016-11-25] MEDS ORDERED: SODIUM CHLOR 0.9% 1000 ML INJ 1,000 ML IV SCH (20:41)
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
[2016-11-25] MEDS: NITROGLYCERIN 0.4 MG SL 25 TABS/BTL SL SCH (20:42)
[2016-11-25] MEDS ORDERED: LIDOCAINE VISCOUS 2% SOLN 15 ML UDC PO ONE (20:45)
[2016-11-25] MEDS ORDERED: ALUMINUM/MAGNESIUM/SIMETH 30 ML CUP PO ONE (20:45)
[2016-11-25] MEDS ORDERED: ONDANSETRON HCL 4 MG/2 ML VIAL IVP ONE (20:45)
[2016-11-25] MEDS ORDERED: PANTOPRAZOLE SODIUM 40 MG VIAL IVP ONE (20:45)
[2016-11-25] MEDS ORDERED: FAMOTIDINE 20 MG/2 ML VIAL IV PUSH ONE (20:45)
[2016-11-25 20:48] VITALS: BP 122/73; PULSE 88; RESP 17; O2SAT 98
[2016-11-25 20:51] LABS: AUTOMATED NEUTROPHIL # 5.3 TH/MM3 (1.8-7.7); BASOPHIL # 0.1 TH/MM3 (0-0.2); BASOPHIL % 0.7 % (0.0-2.0); EOSINOPHIL # 0.1 TH/MM3 (0-0.4); EOSINOPHIL % 1.3 % (0.0-4.0); HEMATOCRIT 43.1 % (35.0-46.0); HEMO FLAGS DIFF FINAL; LYMPH % 18.5 % (9.0-44.0); LYMPHOCYTE # 1.4 TH/MM3 (1.0-4.8); MEAN CELL VOLUME 96.7 FL (80.0-100.0); MEAN CORPUSCULAR HEMOGLOBIN 32.5 PG (27.0-34.0); MEAN CORPUSCULAR HGB CONC 33.6 % (32.0-36.0); MONO % 8.9 % (0.0-8.0); NEUT % 70.6 % (16.0-70.0); PLATELET COUNT 190 TH/MM3 (150-450); RED BLOOD COUNT 4.46 MIL/MM3 (4.00-5.30); RED CELL DISTRIBUTION WIDTH 14.8 % (11.6-17.2); WHITE BLOOD COUNT 7.6 TH/MM3 (4.0-11.0)
[2016-11-25 21:00] LABS: APTT (PATIENT) 24.4 SEC (24.3-30.1); PROTHROMBIN TIME - PATIENT 11.4 SEC (9.8-11.6)
[2016-11-25 21:49] VITALS: BP 131/72; PULSE 82; RESP 18; O2SAT 97
--- NOTE | 2016-11-25 21:57 | RADRPT ---
EXAM DATE/TIME: 11/25/2016 20:35 [facility] COMPARISON: CHEST PA & LAT, September 25, 2016, 13:29. INDICATIONS : Chest pain. MEDICAL HISTORY : Congestive heart failure. Chronic obstructive pulmonary disease. Hypertension. SURGICAL HISTORY : Coronary artery stent. Bilateral breast implants. ENCOUNTER: Initial ACUITY: 1 day PAIN SCORE: 4/10 LOCATION: Bilateral chest FINDINGS: PA and lateral views of the chest demonstrate the lungs to be symmetrically aerated without evidence of mass, infiltrate or effusion. The cardiomediastinal contours are unremarkable. There is hypertro phic change at the right acromioclavicular joint. There is a levocurvature of the thoracic spine. Cli ps are seen in the right upper quadrant the abdomen. Bilateral peripherally calcified breast implants are present. CONCLUSION: No acute disease. Mal Gee MD on November 25, 2016 at 21:54 Board Certified Radiologist. This report was verified electronically.
[2016-11-25 22:03] LABS: CHLORIDE 102 MEQ/L (98-107); POTASSIUM 3.2 MEQ/L (3.5-5.1); SODIUM (NA) 136 MEQ/L (136-145)
[2016-11-25 22:06] LABS: ANION GAP 11 MEQ/L (5-15); BICARBONATE 22.6 MEQ/L (21.0-32.0); MAGNESIUM 1.1 MG/DL (1.5-2.5)
[2016-11-25 22:07] LABS: BLOOD UREA NITROGEN 5 MG/DL (7-18)
[2016-11-25 22:09] LABS: ALT (GPT) 26 U/L (10-53); AST (GOT) 45 U/L (15-37)
[2016-11-25 22:10] LABS: GLOMERULAR FILTRATION RATE 99 ML/MIN (>89)
[2016-11-25 22:11] LABS: TOTAL BILIRUBIN ADULT 1.3 MG/DL (0.2-1.0)
[2016-11-25 22:12] LABS: ALKALINE PHOSPHATASE 153 U/L (45-117)
[2016-11-25 22:26] LABS: CREATINE KINASE 60 U/L (26-192)
[2016-11-25 22:49] VITALS: BP 116/78; PULSE 102; RESP 17; TEMP 98.2; O2SAT 97
[2016-11-25] MEDS ORDERED: OMEP20TA PO (23:00)
[2016-11-25] MEDS ORDERED: PROM25TA10 PO (23:00)
[2016-11-25] MEDS ORDERED: ONDANSETRON HCL 4 MG/2 ML VIAL IV ONE (23:15)
[2016-11-25] MEDS ORDERED: HYDROmorphone HCL PF 1 MG/ML VIAL IVP ONE (23:15)
[2016-11-25 23:45] VITALS: RESP 17
--- NOTE | 2016-11-26 10:53 | EKG ---
Date Performed: 11/25/2016 Time Performed: 20:04:12 PTAGE: 51 years EKG: Normal Sinus rhythm Left atrial abnormality ABNORMAL ECG PREVIOUS TRACING : 02/26/2016 15.13 Low limb lead voltage no longer present compared to the nora or tracing. DOCTOR: Mickey Hodge Interpretating Date/Time 11/26/2016 10:52:45
== END 2016-11-25 23:45 | disposition home or self-care (01) ==
LOC: PHED 19:52
DX: K29.70 Gastritis, unspecified, without bleeding (principal); F17.200 Nicotine dependence, unspecified, uncomplicated; Z79.899 Other long term (current) drug therapy
CPT/HCPCS: 71020; 80053; 82550; 83690; 83735; 84484; 85025; 85610; 85730; 93005; 96361; 96374; 96375; 96376; 99285; C9113; J1170; J2405; J7030

== ENCOUNTER 2017-04-10 09:15 | Inpatient (IN) | payer MEDICAID ==
[2017-04-10] VITALS (7 sets, daily range): BP systolic 98–148; BP diastolic 60–78; PULSE 68–98; RESP 16–20; TEMP 98–98.9; O2SAT 94–99
[~2017-04-10 09:15] MED LIST changes: -ALDA50TA2 PO; -DEXT10SY2 PO; -FERR325T PO; -FOLI1TAB4 PO; -FOLI1TAB6 PO; -GNP100TA3 PO; -MAGN1TAB14 PO; -MEDR4PAK PO; -MIDO5TAB PO; +OMEP20TA93 PO; +PROM25TA10 PO
[2017-04-10] MEDS ORDERED: SODIUM CHLOR 0.9% 1000 ML INJ 1,000 ML IV SCH (10:17)
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
[2017-04-10] MEDS ORDERED: FAMOTIDINE 20 MG/2 ML VIAL IV PUSH ONE (10:30)
[2017-04-10] MEDS ORDERED: ONDANSETRON HCL 4 MG/2 ML VIAL IVP ONE (10:30)
[2017-04-10] MEDS ORDERED: PANTOPRAZOLE SODIUM 40 MG VIAL IVP ONE (10:30)
[2017-04-10] MEDS ORDERED: MORPHINE SULFATE 4 MG/ML INJ IV PUSH ONE (10:30)
[2017-04-10] MEDS ORDERED: SODIUM CHLORIDE 0.9% FLUSH 10 ML FLUSH IV FLUSH PRN (10:30)
[2017-04-10] MEDS ORDERED: methylPREDNISolone SOD SUCC 125 MG/2 ML VIAL IV PUSH ONE (10:30)
[2017-04-10] MEDS: RESP: ALBUTEROL 2.5 MG/IPRATROPIUM 0.5 MG NEB (SCH) INH ×3 (10:37→10:47)
--- NOTE | 2017-04-10 11:07 | RADRPT ---
EXAM DATE/TIME: 04/10/2017 10:50 [facility] COMPARISON: CHEST SINGLE AP, February 28, 2016, 2:55. INDICATIONS : Cough, short of breath, vomiting. MEDICAL HISTORY : Chronic obstructive pulmonary disease. Congestive heart failure. Hypertension. SURGICAL HISTORY : Coronary artery stent. ENCOUNTER: Initial ACUITY: 3 days PAIN SCORE: 3/10 LOCATION: Bilateral chest FINDINGS: A single view of the chest demonstrates the lungs to be symmetrically aerated without evidence of mas s, infiltrate or effusion. The cardiomediastinal contours are unremarkable. Osseous structures are intact. Partially calcified breast implants are noted. There are one electrocardiogram leads and oxyg en tubing. CONCLUSION: No acute disease. There is no evidence of pneumonia on this single view study. Lenard Horton MD on April 10, 2017 at 11:04 Board Certified Radiologist. This report was verified electronically.
--- NOTE | 2017-04-10 11:34 | PD ---
Physical Exam Date Seen by Provider: Apr 10, 2017 Narrative This patient presents with respiratory and GI complaints. IV access was not obtainable by the nursing staff. I was asked to place a central line. Data Data Last Documented VS Vital Signs Date Time Temp Pulse Resp B/P (MAP) Pulse Ox O2 Delivery O2 Flow Rate FiO2 04/10/17 12:28 84 16 113/70 (84) 94 Nasal Cannula 2.00 04/10/17 09:18 98.3 Orders Orders Complete Blood Count With Diff (04/10/17 10:17) Comprehensive Metabolic Panel (04/10/17 10:17) Lipase (04/10/17 10:17) Lactic Acid (04/10/17 10:17) Prothrombin Time / Inr (Pt) (04/10/17 10:17) Act Partial Throm Time (Ptt) (04/10/17 10:17) Urinalysis - C+S If Indicated (04/10/17 10:17) Iv Access Insert/Monitor (04/10/17 10:17) Ecg Monitoring (04/10/17 10:17) Oximetry (04/10/17 10:17) Morphine Inj (Morphine Inj) (04/10/17 10:30) Ondansetron Inj (Zofran Inj) (04/10/17 10:30) Pantoprazole Inj (Protonix Inj) (04/10/17 10:30) Sodium Chlor 0.9% 1000 Ml Inj (Ns 1000 M (04/10/17 10:17) Sodium Chloride 0.9% Flush (Ns Flush) (04/10/17 10:30) Electrocardiogram (04/10/17 10:17) Chest, Single Ap (04/10/17 10:17) Famotidine Inj (Pepcid Inj) (04/10/17 10:30) Influenzae A/B Antigen (04/10/17 10:17) Blood Culture (04/10/17 10:17) Albuterol-Ipratropium Neb (Duoneb Neb) (04/10/17 10:30) Methylprednisolone So Succ Inj (Solumedr (04/10/17 10:30) Chest, Single Ap (04/10/17 11:29) Labs Laboratory Tests Test 04/10/17 11:54 White Blood Count 8.7 TH/MM3 Red Blood Count 4.02 MIL/MM3 Hemoglobin 13.8 GM/DL Hematocrit 41.3 % Mean Corpuscular Volume 102.9 FL Mean Corpuscular Hemoglobin 34.4 PG Mean Corpuscular Hemoglobin Concent 33.4 % Red Cell Distribution Width 12.7 % Platelet Count 162 TH/MM3 Mean Platelet Volume 7.7 FL Neutrophils (%) (Auto) 72.9 % Lymphocytes (%) (Auto) 18.3 % Monocytes (%) (Auto) 7.2 % Eosinophils (%) (Auto) 1.0 % Basophils (%) (Auto) 0.6 % Neutrophils # (Auto) 6.3 TH/MM3 Lymphocytes # (Auto) 1.6 TH/MM3 Monocytes # (Auto) 0.6 TH/MM3 Eosinophils # (Auto) 0.1 TH/MM3 Basophils # (Auto) 0.1 TH/MM3 CBC Comment DIFF FINAL Differential Comment Prothrombin Time 10.8 SEC Prothromb Time International Ratio 1.1 RATIO Activated Partial Thromboplast Time 21.8 SEC Lactic Acid Level 0.4 mmol/L MDM Supervised Visit with GABRIELLA: Yes Narrative Course I, Dr. Hatfield, have reviewed the advance practice practitioner's documentation and am in agreement, met with the patient face to face, made the diagnosis, and the medical decision making was done by me. *My assessment and Findings: Patient is having occasional dry heaves but no active emesis. She also has a cough. She is pretty thin. I have explained the risk and benefits of a central line to the patient. She reports that she understands and is willing to proceed. Last Impressions Chest X-Ray 04/10/17 1129 Signed Impressions: Service Date/Time: March 11:38 - CONCLUSION: Interval placement of right subclavian central venous line with no pneumothorax. The tip of the catheter is projected over the junction of the right atrium and superior vena cava. Lenard Horton MD Chest X-Ray 04/10/17 1017 Signed Impressions: Service Date/Time: March 10:50 - CONCLUSION: No acute disease. There is no evidence of pneumonia on this single view study. Lenard Horton MD Procedures Procedure Narrative CENTRAL VENOUS LINE: The site was prepped with ChloraPrep and sterilely draped. It was infiltrated with 1% lidocaine plain. The deep vein was cannulated using normal Seldinger technique. A triple lumen central line was placed in the right subclavian site and secured with simple interrupted suture. The site was sterilely dressed. The patient tolerated the procedure well. Huyen Hatfield MD Apr 10, 2017 11:34
--- NOTE | 2017-04-10 11:56 | RADRPT ---
EXAM DATE/TIME: 04/10/2017 11:38 [facility] COMPARISON: CHEST SINGLE AP, April 10, 2017, 10:50. INDICATIONS : Post procedure. Evaluate central line. MEDICAL HISTORY : Hypertension. Chronic obstructive pulmonary disease. Congestive heart failure. SURGICAL HISTORY : Coronary artery stent. ENCOUNTER: Initial ACUITY: 1 day PAIN SCORE: 0/10 LOCATION: chest FINDINGS: A single view of the chest demonstrates the lungs to be symmetrically aerated without evidence of mas s, infiltrate or effusion. The cardiomediastinal contours are unremarkable. Osseous structures are intact. Interval placement of right subclavian central venous line with no evidence of pneumothorax. Catheter tip is projected near the junction of the right atrium and superior vena cava. Partially dali cified breast implants are again noted. CONCLUSION: Interval placement of right subclavian central venous line with no pneumothorax. The tip of the catheter is projected over the junction of the right atrium and superior vena cava. Lenard Horton MD on April 10, 2017 at 11:52 Board Certified Radiologist. This report was verified electronically.
[2017-04-10 12:15] LABS: AUTOMATED NEUTROPHIL # 6.3 TH/MM3 (1.8-7.7); BASOPHIL # 0.1 TH/MM3 (0-0.2); BASOPHIL % 0.6 % (0.0-2.0); EOSINOPHIL # 0.1 TH/MM3 (0-0.4); HEMATOCRIT 41.3 % (35.0-46.0); HEMOGLOBIN 13.8 GM/DL (11.6-15.3); LYMPH % 18.3 % (9.0-44.0); LYMPHOCYTE # 1.6 TH/MM3 (1.0-4.8); MEAN CELL VOLUME 102.9 FL (80.0-100.0); MEAN CORPUSCULAR HEMOGLOBIN 34.4 PG (27.0-34.0); MEAN CORPUSCULAR HGB CONC 33.4 % (32.0-36.0); MEAN PLATELET VOLUME 7.7 FL (7.0-11.0); MONO % 7.2 % (0.0-8.0); MONOCYTE # 0.6 TH/MM3 (0-0.9); NEUT % 72.9 % (16.0-70.0); PLATELET COUNT 162 TH/MM3 (150-450); RED BLOOD COUNT 4.02 MIL/MM3 (4.00-5.30); RED CELL DISTRIBUTION WIDTH 12.7 % (11.6-17.2); WHITE BLOOD COUNT 8.7 TH/MM3 (4.0-11.0)
[2017-04-10 12:28] LABS: INTERNATIONAL NORMALIZED RATIO 1.1 RATIO; PROTHROMBIN TIME - PATIENT 10.8 SEC (9.8-11.6)
[2017-04-10 13:19] LABS: ALKALINE PHOSPHATASE 148 U/L (45-117); ALT (GPT) 23 U/L (10-53); AST (GOT) 50 U/L (15-37); BICARBONATE 27.6 MEQ/L (21.0-32.0); BLOOD UREA NITROGEN 7 MG/DL (7-18); CHLORIDE 94 MEQ/L (98-107); CREATININE 0.38 MG/DL (0.50-1.00); GLOMERULAR FILTRATION RATE 178 ML/MIN (>89); GLUCOSE,RANDOM 109 MG/DL (74-106); LIPASE 149 U/L (73-393); SODIUM (NA) 134 MEQ/L (136-145); TOTAL BILIRUBIN ADULT 1.1 MG/DL (0.2-1.0); TOTAL PROTEIN 6.9 GM/DL (6.4-8.2)
[2017-04-10] MEDS ORDERED: POTASSIUM CHLOR 40 MEQ PREMIX 100 ML IV ONE (13:45)
[2017-04-10] MEDS ORDERED: SODIUM CHLOR 0.9% 1000 ML INJ 1,000 ML IV ONE (13:45)
[2017-04-10 15:17] LABS: BILIRUBIN, URINE NEG (NEG); BLOOD, URINE NEG (NEG); GLUCOSE,URINE NEG (NEG); KETONE, URINE TRACE mg/dL (NEG); NITRITE,URINE NEG (NEG); URINE LEUKOCYTE ESTERASE NEG (NEG)
[2017-04-10 15:28] LABS: URINE COLOR YELLOW (YELLW/STRAW)
[2017-04-10 15:30] LABS: SQUAMOUS EPITHELIAL CELL URINE 0-5 /hpf (0-5); WBC, URINE 0-2 /hpf (0-5)
--- NOTE | 2017-04-10 16:54 | HHI.HP ---
[facility] No Primary Care Physician Admission Diagnosis gastritis, COPD, hypokalemia Diagnoses: Chief Complaint: vomiting Travel History International Travel<30 Days: No Contact w/Intl Traveler <30 Da: No Traveled to Known Affected Are: No History of Present Illness 51-year-old white female being admitted for intractable nausea and vomiting and severe hypokalemia. Patient was in her usual state of health until about 5 days ago when she began expressing nausea and vomiting. This was followed with diarrhea and diffuse abdominal pain. She reports having the symptoms persistently throughout the next couple of days with subsequently decreased by mouth intake. She was unable to tolerate even by mouth liquids with resulting vomiting. Patient reports having chills but no fevers. Reports having subsequent chest pain and abdominal pain secondary to vomiting. She denies having any sick contacts. Patient states that she might have Crohn's disease and has been trying to see a tube cutter operator. But she does affirm that she has a lung doctor and is supposed to wear 2 L of oxygen but she does not; and she takes prednisone 5 mg on a daily basis for her lung disease. Review of Systems Except as stated in HPI: all other systems reviewed are Neg Past Family Social History Past Medical History COPD Prior history of pneumonia and requiring mechanical ventilation Past Surgical History Cholecystectomy, appendectomy, cyst removal Allergies: Coded Allergies: No Known Allergies (Verified Allergy, Unknown, 04/10/17) Family History Sr. with lung cancer Social History Extensive lifelong history of smoking Physical Exam Vital Signs Vital Signs Date Time Temp Pulse Resp B/P (MAP) Pulse Ox O2 Delivery O2 Flow Rate FiO2 04/10/17 16:08 89 18 110/68 (82) 97 Nasal Cannula 2.00 04/10/17 12:28 84 16 113/70 (84) 94 Nasal Cannula 2.00 04/10/17 11:00 94 Room Air 04/10/17 09:18 98.3 98 16 98/60 (73) 95 Physical Exam VS: afebrile GENERAL: Middle age white female who appears much older than her stated age, frail appearing, thin, in mild distress secondary to pain SKIN: Warm and dry. EYES: No scleral icterus. No injection or drainage. ENT: No nasal bleeding or discharge. Mucous membranes pink and moist. CARDIOVASCULAR: Regular rate and rhythm. no murmurs RESPIRATORY: No accessory muscle use. Expiratory wheezing and rhonchi, unlabored breathing GASTROINTESTINAL: Abdomen soft, ND; has mild diffuse tenderness to palpation with no guarding Extremities: No clubbing, cyanosis, or edema. No obvious deformities. MUSCULOSKELETAL: thin muscle bulk and tone for age and habitus NEUROLOGICAL: Awake and alert. No obvious cranial nerve deficits. No facial droop nor slurred speech noted. PSYCHIATRIC: Appropriate mood and affect; insight and judgment normal. Laboratory Laboratory Tests Test 04/10/17 11:54 04/10/17 14:56 White Blood Count 8.7 Red Blood Count 4.02 Hemoglobin 13.8 Hematocrit 41.3 Mean Corpuscular Volume 102.9 Mean Corpuscular Hemoglobin 34.4 Mean Corpuscular Hemoglobin Concent 33.4 Red Cell Distribution Width 12.7 Platelet Count 162 Mean Platelet Volume 7.7 Neutrophils (%) (Auto) 72.9 Lymphocytes (%) (Auto) 18.3 Monocytes (%) (Auto) 7.2 Eosinophils (%) (Auto) 1.0 Basophils (%) (Auto) 0.6 Neutrophils # (Auto) 6.3 Lymphocytes # (Auto) 1.6 Monocytes # (Auto) 0.6 Eosinophils # (Auto) 0.1 Basophils # (Auto) 0.1 CBC Comment DIFF FINAL Differential Comment Prothrombin Time 10.8 Prothromb Time International Ratio 1.1 Activated Partial Thromboplast Time 21.8 Blood Urea Nitrogen 7 Creatinine 0.38 Random Glucose 109 Total Protein 6.9 Albumin 3.0 Calcium Level 8.0 Alkaline Phosphatase 148 Aspartate Amino Transf (AST/SGOT) 50 Alanine Aminotransferase (ALT/SGPT) 23 Total Bilirubin 1.1 Sodium Level 134 Potassium Level 2.1 Chloride Level 94 Carbon Dioxide Level 27.6 Anion Gap 12 Estimat Glomerular Filtration Rate 178 Lactic Acid Level 0.4 Lipase 149 Urine Color YELLOW Urine Turbidity CLEAR Urine pH 8.0 Urine Specific [place] 1.006 Urine Protein NEG Urine Glucose (UA) NEG Urine Ketones TRACE Urine Occult Blood NEG Urine Nitrite NEG Urine Bilirubin NEG Urine Leukocyte Esterase NEG Urine WBC 0-2 Urine Squamous Epithelial Cells 0-5 Microscopic Urinalysis Comment CULT NOT INDICATED Date/Time Source Procedure Growth Status 04/10/17 11:50 Blood Peripheral Aerobic Blood Culture Pending Received 04/10/17 11:50 Blood Peripheral Anaerobic Blood Culture Pending Received 04/10/17 11:54 Nasal Washing Influenza Types A,B Antigen (MEL) - Final NEGATIVE FOR FLU A AND B ANTIGEN.... Complete Result Diagram: 04/10/17 1154 04/10/17 1154 Caprini VTE Risk Assessment Caprini VTE Risk Assessment: Mod/High Risk (score >= 2) Caprini Risk Assessment Model Point Value = 1 Point Value = 2 Point Value = 3 Point Value = 5 Age 41-60 Minor surgery BMI > 25 kg/m2 Swollen legs Varicose veins or History of unexplained or recurrent spontaneous Oral contraceptives or hormone replacement Sepsis (< 1 month) Serious lung disease, including pneumonia (< 1 month) Abnormal pulmonary function Acute myocardial infarction Congestive heart failure (< 1 month) History of inflammatory bowel disease Medical patient at bed rest Age 61-74 Arthroscopic surgery Major open surgery (> 45 min) Laparoscopic surgery (> 45 min) Malignancy Confined to bed (> 72 hours) Immobilizing plaster cast Central venous access Age >= 75 History of VTE Family history of VTE Factor V Leiden Prothrombin [id number] Lupus anticoagulant Anticardiolipin antibodies Elevated serum homocysteine Heparin-induced thrombocytopenia Other congenital or acquired thrombophilia Stroke (< 1 month) Elective arthroplasty Hip, pelvis, or leg fracture Acute spinal cord injury (< 1 month) Prophylaxis Regimen Total Risk Factor Score Risk Level Prophylaxis Regimen 0-1 Low Early ambulation 2 Moderate Order ONE of the following: *Sequential Compression Device (SCD) *Heparin 5000 units SQ BID 3-4 Higher Order ONE of the following medications: *Heparin 5000 units SQ TID *Enoxaparin/Lovenox 40 mg SQ daily (WT < 150 kg, CrCl > 30 mL/min) *Enoxaparin/Lovenox 30 mg SQ daily (WT < 150 kg, CrCl > 10-29 mL/min) *Enoxaparin/Lovenox 30 mg SQ BID (WT < 150 kg, CrCl > 30 mL/min) AND/OR *Sequential Compression Device (SCD) 5 or more Highest Order ONE of the following medications: *Heparin 5000 units SQ TID (Preferred with Epidurals) *Enoxaparin/Lovenox 40 mg SQ daily (WT < 150 kg, CrCl > 30 mL/min) *Enoxaparin/Lovenox 30 mg SQ daily (WT < 150 kg, CrCl > 10-29 mL/min) *Enoxaparin/Lovenox 30 mg SQ BID (WT < 150 kg, CrCl > 30 mL/min) AND *Sequential Compression Device (SCD) Assessment and Plan Assessment and Plan 52-year-old white female being a minute for intractable nausea vomiting with resulting dehydration and severe hypokalemia. Intractable nausea vomiting - Source unknown at this time, CMP is unremarkable for any definitive cause, lipase within normal limits - Obtaining urine drug screen - IVF Diarrhea - Could be viral gastritis but given the severity and persistence of the symptoms, I will obtain a C. difficile PCR and consider abdominal CT scan chest pain - Likely from repetitive vomiting, we'll consider obtaining CT scan given the severity of it especially manifested by hypokalemia hypokalemia - checking Mg STAT - placing on stat telemetry - IV replenishing via central line Physician Certification 2 Midnight Certification Type: Admission for Inpatient Services Order for Inpatient Services The services are ordered in accordance with Medicare regulations or non- Medicare payer requirements, as applicable. In the case of services not specified as inpatient-only, they are appropriately provided as inpatient services in accordance with the 2-midnight benchmark. Estimated LOS (days): 3 3 days is the estimated time the patient will need to remain in the hospital, assuming treatment plan goals are met and no additional complications. Post-Hospital Plan: Home Lopez Lou MD Apr 10, 2017 16:54
--- NOTE | 2017-04-10 17:06 | EKG ---
Date Performed: 04/10/2017 Time Performed: 09:27:11 PTAGE: 51 years EKG: ECTOPIC ATRIAL RHYTHM WITH SHORT VA INTERVAL POSSIBLE RIGHT VENTRICULAR CONDUCTION DELAY AB NORMAL RHYTHM ECG SINCE PRIOR TRACING THE ECTOPIC RHYTHM IS NEW, BUT OTHERWISE NO SIGNIFICANT CHANGE. PREVIOUS TRACING : 11/25/2016 20.04 DOCTOR: Gisela Snow Interpretating Date/Time 04/10/2017 17:04:13
[2017-04-10] MEDS: MORPHINE SULFATE 2 MG/ML INJ IV PUSH PRN ×2 (18:50→23:15)
[2017-04-10] MEDS ORDERED: DIATRIZOATE MEGLUM/DIATRIZOATE SOD 9 ML CUP PO ONE (20:30)
--- NOTE | 2017-04-10 23:38 | RADRPT ---
EXAM DATE/TIME: 04/10/2017 22:18 [place] COMPARISON: CT ABDOMEN & PELVIS W/O CONTRAST, September 23, 2016, 0:33. INDICATIONS : Gastritis, abdominal pain. Nausea, vomiting ,diarrhea ORAL CONTRAST: Partial prescribed oral contrast ingested. RADIATION DOSE: 5.33 CTDIvol (mGy) MEDICAL HISTORY : Chronic obstructive pulmonary disease. SURGICAL HISTORY : Appendectomy. Cholecystectomy.Fusion, lumbar. ENCOUNTER: Initial ACUITY: 4 - 6 days PAIN SCALE: 7/10 LOCATION: diffuse abdominal pain TECHNIQUE: Volumetric scanning of the abdomen and pelvis was performed. Using automated exposure control and ad justment of the mA and/or kV according to patient size, radiation dose was kept as low as reasonably achievable to obtain optimal diagnostic quality images. DICOM format image data is available electro nically for review and comparison. The lack of IV contrast limits the diagnosis for certain organ pat hology. FINDINGS: LOWER LUNGS: The visualized lower lungs are clear. LIVER: Homogeneous density without lesion. There is no dilation of the biliary tree. No gallbladder, surgi jesus removed.. SPLEEN: Normal size without lesion. PANCREAS: Within normal limits. KIDNEYS: Normal in size and shape. There is no mass, stone, or hydronephrosis. ADRENAL GLANDS: Within normal limits. VASCULAR: There is no aortic aneurysm. BOWEL/MESENTERY: The stomach, small bowel, and colon demonstrate no acute abnormality. There is no free intraperitone al air or fluid. ABDOMINAL WALL: Within normal limits. RETROPERITONEUM: There is no lymphadenopathy. BLADDER: No wall thickening or mass. REPRODUCTIVE: Within normal limits. INGUINAL: There is no lymphadenopathy or hernia. MUSCULOSKELETAL: Evidence of previous lumbar spinal surgery with fusion involving the lower lumbar spine. Stable bony defect involving the right posterior iliac wing most likely for bone graft. No significant changes co mpared to the prior study. CONCLUSION: Unremarkable and stable CT scan of the abdomen and pelvis compared to the prior examination. No new o r significant changes. Daniel Aguila MD on April 10, 2017 at 23:32 Board Certified Radiologist. This report was verified electronically.
[2017-04-11] VITALS (8 sets, daily range): BP systolic 89–136; BP diastolic 54–77; PULSE 55–76; RESP 18–20; TEMP 96–97.7; O2SAT 94–100
[2017-04-11] MEDS: ZOLPIDEM TARTRATE 10 MG TAB PO PRN (00:02)
[2017-04-11] MEDS: MORPHINE SULFATE 2 MG/ML INJ IV PUSH PRN ×5 (04:17→23:46)
[2017-04-11] MEDS: ONDANSETRON HCL 4 MG/2 ML VIAL IV PUSH PRN ×3 (04:17→23:43)
[2017-04-11 06:56] LABS: AUTOMATED NEUTROPHIL # 4.6 TH/MM3 (1.8-7.7); BASOPHIL % 0.4 % (0.0-2.0); EOSINOPHIL % 0.4 % (0.0-4.0); HEMATOCRIT 34.1 % (35.0-46.0); HEMOGLOBIN 11.3 GM/DL (11.6-15.3); LYMPH % 24.9 % (9.0-44.0); LYMPHOCYTE # 1.7 TH/MM3 (1.0-4.8); MEAN CELL VOLUME 103.3 FL (80.0-100.0); MEAN CORPUSCULAR HEMOGLOBIN 34.2 PG (27.0-34.0); MEAN CORPUSCULAR HGB CONC 33.1 % (32.0-36.0); MONO % 7.9 % (0.0-8.0); MONOCYTE # 0.5 TH/MM3 (0-0.9); NEUT % 66.4 % (16.0-70.0); PLATELET COUNT 141 TH/MM3 (150-450); RED BLOOD COUNT 3.31 MIL/MM3 (4.00-5.30); RED CELL DISTRIBUTION WIDTH 12.9 % (11.6-17.2); WHITE BLOOD COUNT 6.8 TH/MM3 (4.0-11.0)
--- NOTE | 2017-04-11 07:05 | MB ---
cc: ARABELLA FROST M.D. DATE OF CONSULTATION 04/10/2017 DATE OF [address] Lou REASON FOR REFERRAL Nausea, vomiting, abdominal pain, and diarrhea. Thank you for the consultation for this 51-year-old lady who has been in good health until about a week ago when she started having abdominal discomfort with nausea, vomiting and significant diarrhea. The patient had multiple episodes of vomiting that caused her to be hypokalemic. The patient stated that she feels significant abdominal pain mostly in the epigastric area. She denied any other problems. She had a colonoscopy many years ago, she does not remember when and also she had been told that she might have peptic ulcer disease, but she is not sure about that. The patient does not have ill contacts. She denied any other family members with similar problems. She denied any traveling recently. The patient stated that she may have Crohn's disease and she was trying to see a rn cardiac rehab, but she can not find one in this area. The patient also has COPD and she was supposed to be on home O2, but she is not doing. Currently, the patient is laying in bed comfortably, but still having abdominal discomfort. Her last diarrhea was earlier today in the morning. REVIEW OF SYSTEMS All 12-points negative except HPI. ALLERGIES NO KNOWN DRUG ALLERGIES. FAMILY HISTORY Significant for lung cancer. SOCIAL HISTORY Significant for smoking. No drugs or alcohol. SURGERIES 1. Appendectomy 2. Cyst removal 3. Cholecystectomy PAST MEDICAL HISTORY Significant for: 1. COPD 2. History of pneumonia. PHYSICAL EXAMINATION Alert, oriented in no acute distress. VITAL SIGNS: Stable. HEENT: Pupils are round and reactive to light. NECK: Supple. CHEST: clear to auscultation and proportion. CARDIAC: Regular rate and rhythm. No murmur or gallop. ABDOMEN: Soft, nondistended. Positive bowel sounds. She has diffuse tenderness mostly in the upper abdomen. EXTREMITIES: No edema, clubbing or cyanosis. NEUROLOGIC: Alert, oriented, no focal deficit. PSYCHOLOGIC: Appropriate. LABORATORY DATA White count 8.7, hemoglobin 13.8, platelets 162, INR 1.1. Liver function test, AST was 50, ALT 23, total bilirubin 1.1, lipase 149. UA was clear. Chest x-ray, no acute problems. ASSESSMENT/PLAN This is a 51-year-old lady with abdominal pain, nausea, vomiting. This started about one week ago. I do not see any active bleeding. We are going to obtain a CT scan to evaluate her GI tract. Her last CT scan was done on 09/22 to the abdomen. No other abnormality in the bowel. She will need a CT scan with p.o. and IV contrast. If symptoms continue, the patient will need an upper endoscopy and colonoscopy. Also if she has more diarrhea, we need to obtain a stool study to rule out C. diff or other infection. MD SIMEON Voss/NOELLE /8:14 PM /6:47 AM
[2017-04-11 07:19] LABS: BICARBONATE 27.2 MEQ/L (21.0-32.0); CREATININE 0.36 MG/DL (0.50-1.00)
[2017-04-11 07:24] LABS: CALCIUM 7.4 MG/DL (8.5-10.1)
[2017-04-11 07:39] LABS: CALCIUM-PROTEIN CORRECTED 8.1 MG/DL (8.5-10.1); TOTAL PROTEIN 5.8 GM/DL (6.4-8.2)
[2017-04-11] MEDS: FLUoxetine HCL 20 MG CAP PO SCH (08:01)
[2017-04-11] MEDS: ALPRAZolam 1 MG TAB PO PRN ×2 (08:01→22:58)
[2017-04-11] MEDS: PANTOPRAZOLE SOD 40 MG DELAYED RELEASE TAB PO SCH (08:01)
--- NOTE | 2017-04-11 09:11 | HHI.GIFU ---
Subjective Remarks Patient laying in bed seems to be little bit more comfortable, still complaining of abdominal discomfort, mild nausea, she said her nausea is better with Zofran, CT scan was done which was normal Objective Vitals I&O Vital Signs Date Time Temp Pulse Resp B/P (MAP) Pulse Ox O2 Delivery O2 Flow Rate FiO2 04/11/17 08:00 97.7 75 18 121/73 (89) 100 04/11/17 04:00 97.6 76 20 136/63 (87) 99 04/11/17 00:00 97.3 69 20 112/72 (85) 97 04/10/17 22:00 68 04/10/17 20:00 98.9 74 20 148/78 (101) 99 04/10/17 16:30 98.0 75 16 118/70 (86) 99 04/10/17 16:08 89 18 110/68 (82) 97 Nasal Cannula 2.00 04/10/17 12:28 84 16 113/70 (84) 94 Nasal Cannula 2.00 04/10/17 11:00 94 Room Air 04/10/17 09:18 98.3 98 16 98/60 (73) 95 I/O 04/10/17 04/10/17 04/10/17 04/11/17 04/11/17 04/11/17 07:00 15:00 23:00 07:00 15:00 23:00 Intake Total 2250 ml 0 ml Balance 2250 ml 0 ml Intake Oral 150 ml 0 ml IV Total 2100 ml # Voids 1 3 # Bowel Movements 1 1 Laboratory Laboratory Tests Test 04/10/17 11:50 04/10/17 11:54 04/10/17 14:56 04/11/17 01:15 Magnesium Level 1.4 White Blood Count 8.7 Red Blood Count 4.02 Hemoglobin 13.8 Hematocrit 41.3 Mean Corpuscular Volume 102.9 Mean Corpuscular Hemoglobin 34.4 Mean Corpuscular Hemoglobin Concent 33.4 Red Cell Distribution Width 12.7 Platelet Count 162 Mean Platelet Volume 7.7 Neutrophils (%) (Auto) 72.9 Lymphocytes (%) (Auto) 18.3 Monocytes (%) (Auto) 7.2 Eosinophils (%) (Auto) 1.0 Basophils (%) (Auto) 0.6 Neutrophils # (Auto) 6.3 Lymphocytes # (Auto) 1.6 Monocytes # (Auto) 0.6 Eosinophils # (Auto) 0.1 Basophils # (Auto) 0.1 CBC Comment DIFF FINAL Differential Comment Prothrombin Time 10.8 Prothromb Time International Ratio 1.1 Activated Partial Thromboplast Time 21.8 Blood Urea Nitrogen 7 Creatinine 0.38 Random Glucose 109 Total Protein 6.9 Albumin 3.0 Calcium Level 8.0 Alkaline Phosphatase 148 Aspartate Amino Transf (AST/SGOT) 50 Alanine Aminotransferase (ALT/SGPT) 23 Total Bilirubin 1.1 Sodium Level 134 Potassium Level 2.1 Chloride Level 94 Carbon Dioxide Level 27.6 Anion Gap 12 Estimat Glomerular Filtration Rate 178 Lactic Acid Level 0.4 Lipase 149 Urine Color YELLOW Urine Turbidity CLEAR Urine pH 8.0 Urine Specific [place] 1.006 Urine Protein NEG Urine Glucose (UA) NEG Urine Ketones TRACE Urine Occult Blood NEG Urine Nitrite NEG Urine Bilirubin NEG Urine Leukocyte Esterase NEG Urine WBC 0-2 Urine Squamous Epithelial Cells 0-5 Microscopic Urinalysis Comment CULT NOT INDICATED Urine Opiates Screen POS Urine Barbiturates Screen NEG Urine Amphetamines Screen NEG Urine Benzodiazepines Screen POS Urine Cocaine Screen NEG Urine Cannabinoids Screen NEG Test 04/11/17 05:51 White Blood Count 6.8 Red Blood Count 3.31 Hemoglobin 11.3 Hematocrit 34.1 Mean Corpuscular Volume 103.3 Mean Corpuscular Hemoglobin 34.2 Mean Corpuscular Hemoglobin Concent 33.1 Red Cell Distribution Width 12.9 Platelet Count 141 Mean Platelet Volume 8.0 Neutrophils (%) (Auto) 66.4 Lymphocytes (%) (Auto) 24.9 Monocytes (%) (Auto) 7.9 Eosinophils (%) (Auto) 0.4 Basophils (%) (Auto) 0.4 Neutrophils # (Auto) 4.6 Lymphocytes # (Auto) 1.7 Monocytes # (Auto) 0.5 Eosinophils # (Auto) 0.0 Basophils # (Auto) 0.0 CBC Comment DIFF FINAL Differential Comment Blood Urea Nitrogen 7 Creatinine 0.36 Random Glucose 93 Total Protein 5.8 Calcium Level 7.4 Sodium Level 138 Potassium Level 2.8 Chloride Level 103 Carbon Dioxide Level 27.2 Anion Gap 8 Estimat Glomerular Filtration Rate 189 Protein Corrected Calcium 8.1 Date/Time Source Procedure Growth Status 04/10/17 11:50 Blood Peripheral Aerobic Blood Culture Pending Received 04/10/17 11:50 Blood Peripheral Anaerobic Blood Culture Pending Received 04/10/17 11:54 Nasal Washing Influenza Types A,B Antigen (MEL) - Final NEGATIVE FOR FLU A AND B ANTIGEN.... Complete Physical Exam HEENT: Pupils round and reactive to light; normocephalic; atraumatic; no jaundice. Throat is clear. NECK: Neck is supple, no JVD, no lymphadenopathy. CHEST: Chest is clear to auscultation and percussion. CARDIAC: Regular rate and rhythm with no murmur gallop or rubs. ABDOMEN: Soft, nondistended, mild diffuse tenderness; no hepatosplenomegaly; bowel sounds are present in all four quadrants. EXTREMITIES: No clubbing, cyanosis, or edema. SKIN: Normal; no rash; no jaundice. PUDDLER PILE DRIVING: No focal deficits; alert and oriented times three. Assessment and Plan Plan Patient is 51-year-old with nausea she had vomiting earlier this week and abdominal pain with diarrhea, likely gastroenteritis, CT scan was normal Patient hungry and wanting to eat Okay to try clear liquids Waiting for the stool studies Continue antiemetics Dixie Burroughs MD Apr 11, 2017 09:11
[2017-04-11] MEDS ORDERED: INFLUENZA VIRUS VACCINE (QUADRIVALENT) 0.5 ML SYR IM ONE (10:00)
[2017-04-11] MEDS: POTASSIUM CHLOR 40 MEQ PREMIX 100 ML IV SCH ×2 (10:31→15:17)
[2017-04-11] MEDS ORDERED: PROMETHAZINE INJ 25 MG/ML VIAL IM ONE (11:00)
[2017-04-11] MEDS: MAGNESIUM SULFATE 1 GM PREMIX 100 ML IV SCH ×2 (17:47→18:11)
[2017-04-11] MEDS: SODIUM CHLOR 0.9% 1000 ML INJ 1,000 ML IV SCH (17:47)
--- NOTE | 2017-04-11 17:53 | HHI.PR ---
Subjective Remarks Nursing denies any deterioration since last night. Patient herself says she felt nauseated when she did try to eat this morning. Otherwise no medical deteriorations have been reported. Objective Vital Signs Date Time Temp Pulse Resp B/P (MAP) Pulse Ox O2 Delivery O2 Flow Rate FiO2 04/11/17 16:19 18 04/11/17 12:00 97.2 72 20 113/77 (89) 97 04/11/17 08:00 97.7 75 18 121/73 (89) 100 04/11/17 08:00 65 04/11/17 04:00 97.6 76 20 136/63 (87) 99 04/11/17 00:00 97.3 69 20 112/72 (85) 97 04/10/17 22:00 68 04/10/17 20:00 98.9 74 20 148/78 (101) 99 I/O 04/10/17 04/10/17 04/10/17 04/11/17 04/11/17 04/11/17 07:00 15:00 23:00 07:00 15:00 23:00 Intake Total 2250 ml 0 ml 550 ml 100 ml Balance 2250 ml 0 ml 550 ml 100 ml Intake Oral 150 ml 0 ml 550 ml IV Total 2100 ml 100 ml # Voids 1 3 4 # Bowel Movements 1 1 2 Result Diagram: 04/11/17 0551 04/11/17 0551 Objective Remarks Abdomen is nondistended, soft Unlabored breathing, has substantial wheezing bilaterally A/P Assessment and Plan 52-year-old white female being a minute for intractable nausea vomiting with resulting dehydration and severe hypokalemia. Intractable nausea vomiting - Improved, tolerating very little by mouth intake - Source unknown at this time, CMP is unremarkable for any definitive cause, lipase within normal limits. C. difficile is negative, CT chest is unremarkable - Drug screen is negative for marijuana - IVF Diarrhea - C. difficile is negative; and consider Imodium vomiting induced chest pain - CT chest is negative for any acute findings secondary to vomiting hypokalemia - Likely secondary to repetitive vomiting and ETOH prior to admission, prior to admission as well as newfound hypomagnesemia - Replacing both intravenously wheezing likely 2/2 COPD - solumedrol, duonebs, mucomyst We'll do trial dinner tonight; patient feels as, will make patient nothing by mouth and see faster neurology can perform endoscopy. Lopez Lou MD Apr 11, 2017 17:52
[2017-04-11] MEDS ORDERED: RESP: ALBUTEROL 1.25 MG/3 ML NEB (PRN) NEB (18:00)
[2017-04-11] MEDS: ACETAMINOPHEN/HYDROcodone 325 MG/10 MG TAB PO PRN (18:18)
[2017-04-11] MEDS: RESP: ACETYLCYSTEINE 10% 30 ML NEB NEB SCH (20:00)
[2017-04-11] MEDS: RESP: ALBUTEROL 2.5 MG/IPRATROPIUM 0.5 MG NEB (SCH) NEB (21:35)
[2017-04-11] MEDS: methylPREDNISolone SOD SUCC 125 MG/2 ML VIAL IV PUSH SCH (22:57)
[2017-04-12] MEDS: ZOLPIDEM TARTRATE 10 MG TAB PO PRN (01:37)
[2017-04-12 04:00] VITALS: BP 114/69; PULSE 66; RESP 18; TEMP 97.1; O2SAT 98
[2017-04-12] MEDS: ONDANSETRON HCL 4 MG/2 ML VIAL IV PUSH PRN ×2 (05:08→11:39)
[2017-04-12] MEDS: methylPREDNISolone SOD SUCC 125 MG/2 ML VIAL IV PUSH SCH (05:09)
[2017-04-12] MEDS: MORPHINE SULFATE 2 MG/ML INJ IV PUSH PRN ×4 (05:11→20:29)
[2017-04-12] MEDS: SODIUM CHLOR 0.9% 1000 ML INJ 1,000 ML IV SCH (05:16)
[2017-04-12 06:25] LABS: BICARBONATE 22.4 MEQ/L (21.0-32.0); CALCIUM 7.9 MG/DL (8.5-10.1); CREATININE 0.42 MG/DL (0.50-1.00)
[2017-04-12] MEDS: RESP: ACETYLCYSTEINE 10% 30 ML NEB NEB SCH ×3 (07:40→20:00)
[2017-04-12 08:00] VITALS: BP 126/83; PULSE 62; PULSE 65; RESP 20; TEMP 96.5; O2SAT 97; O2SAT 98
[2017-04-12] MEDS: RESP: ALBUTEROL 2.5 MG/IPRATROPIUM 0.5 MG NEB (SCH) NEB ×4 (08:02→20:00)
[2017-04-12] MEDS: FLUoxetine HCL 20 MG CAP PO SCH (08:32)
[2017-04-12] MEDS: PANTOPRAZOLE SOD 40 MG DELAYED RELEASE TAB PO SCH (08:34)
[2017-04-12 12:00] VITALS: BP 119/77; PULSE 65; RESP 20; TEMP 96.4; O2SAT 98
[2017-04-12] MEDS: PROMETHAZINE HCL 25 MG TAB PO SCH ×3 (13:17→23:50)
[2017-04-12] MEDS: ACETAMINOPHEN/HYDROcodone 325 MG/10 MG TAB PO PRN ×2 (13:23→21:36)
--- NOTE | 2017-04-12 13:26 | HHI.PR ---
Subjective Remarks Patient seen and evaluated for intractable nausea and vomiting. Patient reports she has improved symptoms with Phenergan. Potassium improved. Imaging unremarkable. GI consult appreciated Plan of care discussed with patient and nursing team C. difficile negative Objective Vitals Vital Signs Date Time Temp Pulse Resp B/P (MAP) Pulse Ox O2 Delivery O2 Flow Rate FiO2 04/12/17 12:00 96.4 65 20 119/77 (91) 98 04/12/17 09:38 18 04/12/17 08:00 96.5 65 20 126/83 (97) 98 04/12/17 08:00 62 04/12/17 08:00 97 04/12/17 04:00 97.1 66 18 114/69 (84) 98 04/11/17 22:46 96.0 71 20 101/67 (78) 94 04/11/17 20:15 55 04/11/17 20:00 97.0 57 18 89/54 (66) 94 04/11/17 16:00 97.2 72 20 113/77 (89) 97 I/O 04/11/17 04/11/17 04/11/17 04/12/17 04/12/17 04/12/17 07:00 15:00 23:00 07:00 15:00 23:00 Intake Total 0 ml 550 ml 300 ml 955 ml 84 ml Balance 0 ml 550 ml 300 ml 955 ml 84 ml Intake Oral 0 ml 550 ml 100 ml 480 ml IV Total 200 ml 475 ml 84 ml # Voids 3 4 3 2 # Bowel Movements 1 2 2 Result Diagram: 04/11/17 0551 04/12/17 0510 Objective Remarks GENERAL: This is a frail female who appears older than stated age, well- developed patient, complaining of nausea CARDIOVASCULAR: Regular rate and rhythm without murmurs, gallops, or rubs. RESPIRATORY: Clear to auscultation. Breath sounds equal bilaterally. No wheezes , rales, or rhonchi. GASTROINTESTINAL: Abdomen soft, non-tender, nondistended. Normal active bowel sounds MUSCULOSKELETAL: Extremities without clubbing, cyanosis, or edema. NEURO: Alert & Oriented x4 to person, place, time, situation. Moves all ext x4 Medications and IVs Right subclavian central line A/P Problem List: (1) COPD exacerbation ICD Code: J44.1 - Obstructive chronic bronchitis with exacerbation Status: Acute Plan: Continue to wean steroids, bronchodilators, wean O2 (2) Hypokalemia ICD Code: E87.6 - Hypokalemia Status: Acute Plan: 3.7 today, status post replacement Mag normal (3) Nausea & vomiting ICD Code: R11.2 - Nausea with vomiting, unspecified Status: Acute Plan: Continue IV hydration, antiemetics IV and by mouth Advance diet as tolerated (4) Anxiety and depression ICD Code: F41.9 - Anxiety disorder, unspecified; F32.9 - Major depressive disorder, single episode, unspecified Status: Acute Plan: Continue Prozac and Xanax Discharge Planning Home o pending diet tolerance Nicole Duarte MD Apr 12, 2017 13:26
--- NOTE | 2017-04-12 15:43 | HHI.GIFU ---
Subjective Remarks Patient laying in bed seems to be comfortable but still complaining of abdominal pain, she was asking for morphine since she was told that she is not taking morphine anymore by Dr. Duarte she is on hydrocodone. No diarrhea since last night Objective Vitals I&O Vital Signs Date Time Temp Pulse Resp B/P (MAP) Pulse Ox O2 Delivery O2 Flow Rate FiO2 04/12/17 14:23 18 04/12/17 12:00 96.4 65 20 119/77 (91) 98 04/12/17 09:38 18 04/12/17 08:00 96.5 65 20 126/83 (97) 98 04/12/17 08:00 62 04/12/17 08:00 97 04/12/17 04:00 97.1 66 18 114/69 (84) 98 04/11/17 22:46 96.0 71 20 101/67 (78) 94 04/11/17 20:15 55 04/11/17 20:00 97.0 57 18 89/54 (66) 94 04/11/17 16:00 97.2 72 20 113/77 (89) 97 I/O 04/11/17 04/11/17 04/11/17 04/12/17 04/12/17 04/12/17 07:00 15:00 23:00 07:00 15:00 23:00 Intake Total 0 ml 550 ml 300 ml 955 ml 1124 ml Balance 0 ml 550 ml 300 ml 955 ml 1124 ml Intake Oral 0 ml 550 ml 100 ml 480 ml 1040 ml IV Total 200 ml 475 ml 84 ml # Voids 3 4 3 2 4 # Bowel Movements 1 2 2 Laboratory Laboratory Tests Test 04/12/17 05:10 Blood Urea Nitrogen 7 Creatinine 0.42 Random Glucose 151 Calcium Level 7.9 Magnesium Level 2.0 Sodium Level 139 Potassium Level 3.7 Chloride Level 110 Carbon Dioxide Level 22.4 Anion Gap 7 Estimat Glomerular Filtration Rate 158 Date/Time Source Procedure Growth Status 04/10/17 11:50 Blood Peripheral Aerobic Blood Culture - Preliminary NO GROWTH IN 2 DAYS Resulted 04/10/17 11:50 Blood Peripheral Anaerobic Blood Culture - Preliminary NO GROWTH IN 2 DAYS Resulted 04/10/17 11:54 Nasal Washing Influenza Types A,B Antigen (MEL) - Final NEGATIVE FOR FLU A AND B ANTIGEN.... Complete Physical Exam HEENT: Pupils round and reactive to light; normocephalic; atraumatic; no jaundice. Throat is clear. NECK: Neck is supple, no JVD, no lymphadenopathy. CHEST: Chest is clear to auscultation and percussion. CARDIAC: Regular rate and rhythm with no murmur gallop or rubs. ABDOMEN: Soft, nondistended, diffuse tenderness; no hepatosplenomegaly; bowel sounds are present in all four quadrants. EXTREMITIES: No clubbing, cyanosis, or edema. SKIN: Normal; no rash; no jaundice. NURSERY SUPERVISOR: No focal deficits; alert and oriented times three. Assessment and Plan Plan Patient is 51-year-old with nausea she had vomiting earlier this week and abdominal pain with diarrhea, likely gastroenteritis, CT scan was normal Patient hungry and wanting to eat 04/12/2017 patient still complaining of abdominal pain no diarrhea CT scan was normal Because of continuing symptoms today for endoscopy and a colonoscopy we will plan on doing that tomorrow clear liquids GoLYTELY Nothing by mouth after midnight Dixie Burroughs MD Apr 12, 2017 15:43
[2017-04-12] MEDS ORDERED: PEG (High)/E-LYTE SOLN 4000 ML BTL PO ONE (15:45)
[2017-04-12 16:00] VITALS: BP 105/70; PULSE 83; RESP 20; TEMP 98.5; O2SAT 99
[2017-04-12 20:00] VITALS: BP 119/81; PULSE 76; RESP 16; TEMP 97.7; O2SAT 98; O2SAT 99
[2017-04-12] MEDS ORDERED: POTASSIUM CHLORIDE 10 MEQ CAP PO SCH (21:00)
[2017-04-13] VITALS (9 sets, daily range): BP systolic 94–141; BP diastolic 57–85; PULSE 75–83; RESP 12–18; TEMP 97.1–98.6; O2SAT 95–100
[2017-04-13] MEDS: ZOLPIDEM TARTRATE 10 MG TAB PO PRN ×2 (00:01→23:13)
[2017-04-13] MEDS: MORPHINE SULFATE 2 MG/ML INJ IV PUSH PRN ×5 (00:29→23:14)
[2017-04-13] MEDS: PROMETHAZINE HCL 25 MG TAB PO SCH ×4 (05:28→23:13)
[2017-04-13 07:56] LABS: BICARBONATE 20.8 MEQ/L (21.0-32.0); CALCIUM 7.8 MG/DL (8.5-10.1)
[2017-04-13 07:59] LABS: CREATININE 0.43 MG/DL (0.50-1.00)
[2017-04-13] MEDS: RESP: ACETYLCYSTEINE 10% 30 ML NEB NEB SCH ×3 (08:00→20:00)
[2017-04-13] MEDS: RESP: ALBUTEROL 2.5 MG/IPRATROPIUM 0.5 MG NEB (SCH) NEB ×3 (08:07→20:17)
[2017-04-13] MEDS: FLUoxetine HCL 20 MG CAP PO SCH (09:00)
[2017-04-13] MEDS: PANTOPRAZOLE SOD 40 MG DELAYED RELEASE TAB PO SCH (09:00)
--- NOTE | 2017-04-13 09:39 | HHI.PR ---
Subjective Remarks Abdominal pain with unclear etiology. Upper and lower endoscopy scheduled for the morning. Patient of abdominal pain but it is improved with IV morphine. Now on clear liquids and patient adamant that she must eat. Explained that we need he entire intestinal tract to be clear for her endoscopy. She is anxious and requests something for anxiety Objective Vitals Vital Signs Date Time Temp Pulse Resp B/P (MAP) Pulse Ox O2 Delivery O2 Flow Rate FiO2 04/13/17 08:07 98 21 04/13/17 04:00 97.9 78 16 141/85 (103) 100 04/13/17 00:34 18 04/13/17 00:00 98.1 76 16 133/85 (101) 99 04/12/17 22:36 18 04/12/17 20:00 98 Nasal Cannula 2.00 04/12/17 20:00 97.7 76 16 119/81 (94) 99 04/12/17 16:00 98.5 83 20 105/70 (82) 99 04/12/17 12:00 96.4 65 20 119/77 (91) 98 04/12/17 09:38 18 I/O 04/12/17 04/12/17 04/12/17 04/13/17 04/13/17 04/13/17 07:00 15:00 23:00 07:00 15:00 23:00 Intake Total 955 ml 1124 ml 1380 ml Balance 955 ml 1124 ml 1380 ml Intake Oral 480 ml 1040 ml 480 ml IV Total 475 ml 84 ml 900 ml # Voids 2 4 3 5 # Bowel Movements 3 5 Result Diagram: 04/11/17 0551 04/13/17 0720 Objective Remarks GENERAL: This is a frail female who appears older than stated age, well- developed patient, complaining of nausea CARDIOVASCULAR: Regular rate and rhythm without murmurs, gallops, or rubs. RESPIRATORY: Clear to auscultation. Breath sounds equal bilaterally. No wheezes , rales, or rhonchi. GASTROINTESTINAL: Abdomen soft, non-tender, nondistended. Normal active bowel sounds MUSCULOSKELETAL: Extremities without clubbing, cyanosis, or edema. NEURO: Alert & Oriented x4 to person, place, time, situation. Moves all ext x4 A/P Problem List: (1) COPD exacerbation ICD Code: J44.1 - Obstructive chronic bronchitis with exacerbation Status: Acute Plan: Continue nebulized bronchodilators, wean O2 (2) Hypokalemia ICD Code: E87.6 - Hypokalemia Status: Acute Plan: 3.0 today, status post replacement Mag normal Replace calcium and increase potassium to 20 twice a day (3) Nausea & vomiting ICD Code: R11.2 - Nausea with vomiting, unspecified Status: Acute Plan: Continue IV hydration, antiemetics IV and by mouth Now on clear liquids with nothing by mouth at midnight for endoscopy (4) Anxiety and depression ICD Code: F41.9 - Anxiety disorder, unspecified; F32.9 - Major depressive disorder, single episode, unspecified Status: Acute Plan: Continue Prozac and Xanax IV Ativan 1 Discharge Planning Pending endoscopy in Nicole Jade MD Apr 13, 2017 09:39
[2017-04-13] MEDS ORDERED: LORazepam 2 MG/ML VIAL IV PUSH ONE (10:00)
[2017-04-13] MEDS: CALCIUM GLUCONATE INJ 1 GM in DEXTROSE 5% IN WATER 100ML INJ 100 ML IV ONE ×4 (11:00→12:09)
[2017-04-13] MEDS: ACETAMINOPHEN/HYDROcodone 325 MG/10 MG TAB PO PRN ×3 (11:00→18:01)
[2017-04-13] MEDS: ALPRAZolam 1 MG TAB PO PRN (12:04)
[2017-04-13] MEDS: ONDANSETRON HCL 4 MG/2 ML VIAL IV PUSH PRN (12:04)
--- NOTE | 2017-04-13 16:22 | HHI.GIFU ---
Subjective Remarks She has laying in bed, she did not finish her prep yesterday, she is still complaining of general pain requesting pain medication, namely morphine, and she went to Objective Vitals I&O Vital Signs Date Time Temp Pulse Resp B/P (MAP) Pulse Ox O2 Delivery O2 Flow Rate FiO2 04/13/17 12:00 98.5 77 12 122/80 (94) 97 04/13/17 08:07 98 21 04/13/17 08:00 98.6 83 12 111/69 (83) 95 04/13/17 04:00 97.9 78 16 141/85 (103) 100 04/13/17 00:34 18 04/13/17 00:00 98.1 76 16 133/85 (101) 99 04/12/17 22:36 18 04/12/17 20:00 98 Nasal Cannula 2.00 04/12/17 20:00 97.7 76 16 119/81 (94) 99 I/O 04/12/17 04/12/17 04/12/17 04/13/17 04/13/17 04/13/17 07:00 15:00 23:00 07:00 15:00 23:00 Intake Total 955 ml 1124 ml 1380 ml 110 ml Balance 955 ml 1124 ml 1380 ml 110 ml Intake Oral 480 ml 1040 ml 480 ml IV Total 475 ml 84 ml 900 ml 110 ml # Voids 2 4 3 5 # Bowel Movements 3 5 Laboratory Laboratory Tests Test 04/13/17 07:20 Blood Urea Nitrogen 7 Creatinine 0.43 Random Glucose 84 Calcium Level 7.8 Sodium Level 139 Potassium Level 3.0 Chloride Level 110 Carbon Dioxide Level 20.8 Anion Gap 8 Estimat Glomerular Filtration Rate 154 Lipase 98 Date/Time Source Procedure Growth Status 04/10/17 11:50 Blood Peripheral Aerobic Blood Culture - Preliminary NO GROWTH IN 3 DAYS Resulted 04/10/17 11:50 Blood Peripheral Anaerobic Blood Culture - Preliminary NO GROWTH IN 3 DAYS Resulted 04/10/17 11:54 Nasal Washing Influenza Types A,B Antigen (MEL) - Final NEGATIVE FOR FLU A AND B ANTIGEN.... Complete Physical Exam HEENT: Pupils round and reactive to light; normocephalic; atraumatic; no jaundice. Throat is clear. NECK: Neck is supple, no JVD, no lymphadenopathy. CHEST: Chest is clear to auscultation and percussion. CARDIAC: Regular rate and rhythm with no murmur gallop or rubs. ABDOMEN: Soft, nondistended, mild diffuse tenderness; no hepatosplenomegaly; bowel sounds are present in all four quadrants. EXTREMITIES: No clubbing, cyanosis, or edema. SKIN: Normal; no rash; no jaundice. PROTECTIVE OFFICER: No focal deficits; alert and oriented times three. Assessment and Plan Plan Patient is 51-year-old with nausea she had vomiting earlier this week and abdominal pain with diarrhea, likely gastroenteritis, CT scan was normal Patient hungry and wanting to eat 04/12/2017 patient still complaining of abdominal pain no diarrhea CT scan was normal Because of continuing symptoms today for endoscopy and a colonoscopy we will plan on doing that tomorrow 02/11/2018, patient laying in bed seems comfortable but still complaining of abdominal pain, took part of the preparation, clear liquids Continue GoLYTELY Nothing by mouth after midnight Plan: Colonoscopy EGD in the morning Repeat CBC in a.m. Dixie Burroughs MD Apr 13, 2017 16:22
[2017-04-13] MEDS: SODIUM CHLOR 0.9% 1000 ML INJ 1,000 ML IV SCH ×2 (17:51→23:14)
[2017-04-13] MEDS: POTASSIUM CHLORIDE 10 MEQ CAP PO SCH (20:15)
[2017-04-14] MEDS: PROMETHAZINE HCL 25 MG TAB PO SCH ×2 (05:14→13:06)
[2017-04-14 06:20] LABS: HEMATOCRIT 32.6 % (35.0-46.0); HEMOGLOBIN 10.9 GM/DL (11.6-15.3); MEAN CORPUSCULAR HGB CONC 33.4 % (32.0-36.0); MEAN PLATELET VOLUME 8.2 FL (7.0-11.0); PLATELET COUNT 172 TH/MM3 (150-450); RED CELL DISTRIBUTION WIDTH 13.4 % (11.6-17.2); WHITE BLOOD COUNT 7.6 TH/MM3 (4.0-11.0)
[2017-04-14 08:00] VITALS: BP 110/83; PULSE 76; RESP 16; TEMP 97.6; O2SAT 97
[2017-04-14] MEDS: RESP: ALBUTEROL 2.5 MG/IPRATROPIUM 0.5 MG NEB (SCH) NEB ×2 (08:04→13:36)
--- NOTE | 2017-04-14 08:39 | PD.PROCEDR ---
GI Procedure PROCEDURE PERFORMED Upper endoscopy with biopsy Colonoscopy with polypectomy INDICATION FOR PROCEDURE Abdominal pain Mild anemia PROCEDURE: The procedure, risks and benefits were discussed with Ms. Duarte and informed consent was obtained. Anesthesia sedated her with Diprivan. She was placed in the left lateral decubitus position. EGD: The Pentax videoscope was introduced through the oropharynx and advanced to the second portion of the duodenum under direct visualization. Retroflexion was performed in the stomach. Biopsy from the antrum to rule out H. pylori, biopsy from the distal esophagus for esophagitis Colonoscopy: The Pentax videoscope was introduced through the rectum and advanced to cecum which was identified by the ileocecal valve and appendiceal orifice, there was small polyp in the sigmoid removed completely, retroflexion was performed in the rectum. Colonic prep was fair ESTIMATED BLOOD LOSS: None SPECIMENS REMOVED: Distal esophagus, antrum, colon polyp COMPLICATIONS: None IMPRESSION: Severe grade D esophagitis in the distal half of the esophagus Stomach normal Duodenitis biopsy from the antrum to rule out H. pylori Small polyp in the colon removed otherwise normal PLAN: Continue PPI Start feeding patient Okay to discharge from GI standpoint Follow-up biopsy Dixie Burroughs MD Apr 14, 2017 08:39
[2017-04-14 08:40] VITALS: BP 144/83; PULSE 84; RESP 16; TEMP 99
--- NOTE | 2017-04-14 08:41 | HHI.GIFU ---
Subjective Remarks Patient still complaining of epigastric pain and abdominal discomfort still requesting pain medication Objective Vitals I&O Vital Signs Date Time Temp Pulse Resp B/P (MAP) Pulse Ox O2 Delivery O2 Flow Rate FiO2 04/14/17 04:31 04/13/17 23:31 97.6 80 18 110/82 (91) 96 04/13/17 21:11 97.1 79 16 108/59 (75) 98 04/13/17 20:17 99 21 04/13/17 16:00 97.9 75 14 94/57 (69) 98 04/13/17 12:00 98.5 77 12 122/80 (94) 97 I/O 04/13/17 04/13/17 04/13/17 04/14/17 04/14/17 04/14/17 07:00 15:00 23:00 07:00 15:00 23:00 Intake Total 110 ml 680 ml 800 ml Balance 110 ml 680 ml 800 ml Intake Oral 680 ml IV Total 110 ml Other 800 ml # Voids 5 2 4 # Bowel Movements 5 2 5 Laboratory Laboratory Tests Test 04/14/17 05:15 White Blood Count 7.6 Red Blood Count 3.10 Hemoglobin 10.9 Hematocrit 32.6 Mean Corpuscular Volume 105.0 Mean Corpuscular Hemoglobin 35.0 Mean Corpuscular Hemoglobin Concent 33.4 Red Cell Distribution Width 13.4 Platelet Count 172 Mean Platelet Volume 8.2 Date/Time Source Procedure Growth Status 04/10/17 11:50 Blood Peripheral Aerobic Blood Culture - Preliminary NO GROWTH IN 3 DAYS Resulted 04/10/17 11:50 Blood Peripheral Anaerobic Blood Culture - Preliminary NO GROWTH IN 3 DAYS Resulted 04/10/17 11:54 Nasal Washing Influenza Types A,B Antigen (MEL) - Final NEGATIVE FOR FLU A AND B ANTIGEN.... Complete Physical Exam HEENT: Pupils round and reactive to light; normocephalic; atraumatic; no jaundice. Throat is clear. NECK: Neck is supple, no JVD, no lymphadenopathy. CHEST: Chest is clear to auscultation and percussion. CARDIAC: Regular rate and rhythm with no murmur gallop or rubs. ABDOMEN: Soft, nondistended, mild diffuse tenderness mostly in the epigastric area; no hepatosplenomegaly; bowel sounds are present in all four quadrants. EXTREMITIES: No clubbing, cyanosis, or edema. SKIN: Normal; no rash; no jaundice. DISTRICT ASSOCIATE JUDGE: No focal deficits; alert and oriented times three. Assessment and Plan Plan Patient is 51-year-old with nausea she had vomiting earlier this week and abdominal pain with diarrhea, likely gastroenteritis, CT scan was normal Patient hungry and wanting to eat 04/12/2017 patient still complaining of abdominal pain no diarrhea CT scan was normal Because of continuing symptoms today for endoscopy and a colonoscopy we will plan on doing that tomorrow 02/11/2018, patient laying in bed seems comfortable but still complaining of abdominal pain, took part of the preparation, 02/13/2008, no new complaints seems her pain is subsiding had upper endoscopy and colonoscopy today, hemoglobin stable IMPRESSION: Severe grade D esophagitis in the distal half of the esophagus Stomach normal Duodenitis biopsy from the antrum to rule out H. pylori Small polyp in the colon removed otherwise normal PLAN: Continue PPI Start feeding patient Okay to discharge from GI standpoint Follow-up biopsy Dixie Burroughs MD Apr 14, 2017 08:41
[2017-04-14] MEDS: PANTOPRAZOLE SOD 40 MG DELAYED RELEASE TAB PO SCH (09:38)
[2017-04-14] MEDS: POTASSIUM CHLORIDE 10 MEQ CAP PO SCH (09:38)
[2017-04-14] MEDS: FLUoxetine HCL 20 MG CAP PO SCH (09:38)
[2017-04-14] MEDS: ONDANSETRON HCL 4 MG/2 ML VIAL IV PUSH PRN (09:50)
[2017-04-14] MEDS: ALPRAZolam 1 MG TAB PO PRN (09:50)
--- NOTE | 2017-04-14 12:03 | HHI.DCPOC ---
Discharge Care Plan Diagnosis: (1) Nausea & vomiting Goals to Promote Your Health * To prevent worsening of your condition and complications * To maintain your health at the optimal level Directions to Meet Your Goals Take your medications as prescribed Follow your dietary instruction Follow activity as directed Keep your appointments as scheduled Take your immunizations and boosters as scheduled If your symptoms worsen call your PCP, if no PCP go to Urgent Care Center or Emergency Room Smoking is Dangerous to Your Health. Avoid second hand smoke Call the 24-hour hour crisis hotline for domestic abuse at Nicole Duarte MD Apr 14, 2017 12:03
--- NOTE | 2017-04-14 12:04 | HHI.DS ---
Discharge Summary Admission Date Apr 10, 2017 at 14:08 Discharge Date: Apr 14, 2017 Admitting Diagnosis gastritis, COPD, hypokalemia (1) COPD exacerbation ICD Code: J44.1 - Obstructive chronic bronchitis with exacerbation Status: Acute (2) Hypokalemia ICD Code: E87.6 - Hypokalemia Status: Acute (3) Nausea & vomiting ICD Code: R11.2 - Nausea with vomiting, unspecified Status: Acute (4) Anxiety and depression ICD Code: F41.9 - Anxiety disorder, unspecified; F32.9 - Major depressive disorder, single episode, unspecified Status: Acute Procedures Upper and lower endoscopy, diagnosis gastritis Brief History - From Admission 51-year-old white female being admitted for intractable nausea and vomiting and severe hypokalemia. Patient was in her usual state of health until about 5 days ago when she began expressing nausea and vomiting. This was followed with diarrhea and diffuse abdominal pain. She reports having the symptoms persistently throughout the next couple of days with subsequently decreased by mouth intake. She was unable to tolerate even by mouth liquids with resulting vomiting. Patient reports having chills but no fevers. Reports having subsequent chest pain and abdominal pain secondary to vomiting. She denies having any sick contacts. Patient states that she might have Crohn's disease and has been trying to see a rib cloth knitter. But she does affirm that she has a lung doctor and is supposed to wear 2 L of oxygen but she does not; and she takes prednisone 5 mg on a daily basis for her lung disease. CBC/BMP: 04/14/17 0515 04/13/17 0720 Significant Findings Laboratory Tests Test 04/12/17 05:10 04/13/17 07:20 04/14/17 05:15 Creatinine 0.42 MG/DL (0.50-1.00) 0.43 MG/DL (0.50-1.00) Random Glucose 151 MG/DL (74-106) Calcium Level 7.9 MG/DL (8.5-10.1) 7.8 MG/DL (8.5-10.1) Chloride Level 110 MEQ/L (98-107) 110 MEQ/L (98-107) Potassium Level 3.0 MEQ/L (3.5-5.1) Carbon Dioxide Level 20.8 MEQ/L (21.0-32.0) Red Blood Count 3.10 MIL/MM3 (4.00-5.30) Hemoglobin 10.9 GM/DL (11.6-15.3) Hematocrit 32.6 % (35.0-46.0) Mean Corpuscular Volume 105.0 FL (80.0-100.0) Mean Corpuscular Hemoglobin 35.0 PG (27.0-34.0) Imaging Last Impressions Chest X-Ray 04/10/17 1129 Signed Impressions: Service Date/Time: March 11:38 - CONCLUSION: Interval placement of right subclavian central venous line with no pneumothorax. The tip of the catheter is projected over the junction of the right atrium and superior vena cava. Lenard Horton MD Abdomen/Pelvis CT 04/10/17 0000 Signed Impressions: Service Date/Time: March 22:18 - CONCLUSION: Unremarkable and stable CT scan of the abdomen and pelvis compared to the prior examination. No new or significant changes. Daniel Aguila MD PE at Discharge GENERAL: This is a frail female who appears older than stated age, well- developed patient, complaining of nausea CARDIOVASCULAR: Regular rate and rhythm without murmurs, gallops, or rubs. RESPIRATORY: Clear to auscultation. Breath sounds equal bilaterally. No wheezes , rales, or rhonchi. GASTROINTESTINAL: Abdomen soft, non-tender, nondistended. Normal active bowel sounds MUSCULOSKELETAL: Extremities without clubbing, cyanosis, or edema. NEURO: Alert & Oriented x4 to person, place, time, situation. Moves all ext x4 Pt update on day of discharge Patient seen today in follow-up for abdominal pain. Findings of gastritis on upper endoscopy. Patient PPI continued. Discharge plans discussed with patient Hospital Course This patient is a 51-year-old female with recurrent abdominal pain. She was given antiemetics and pain medication. She did have upper and lower endoscopy with findings of gastritis. PPI was recommended. Patient was discharged home Pt Condition on Discharge: Good Discharge Disposition: Discharge Home Discharge Time: <= 30 minutes Discharge Instructions DIET: Follow Instructions for: As Tolerated, No Restrictions Activities you can perform: Regular-No Restrictions Follow up Referrals: PCP Follow-up - 1 Week Continued Medications: Alprazolam (Xanax) 1 Mg Tab 1 MG PO BID PRN for ANXIETY, TAB 0 Refills Fluoxetine (Prozac) 20 Mg Cap 20 MG PO DAILY, #30 CAP 0 Refills Hydrocodone-Acetaminophen (Hydrocodone-Acetaminophen) 10-300 Tab 1 TAB PO Q6H PRN for PAIN, #15 TAB 0 Refills Meloxicam (Mobic) 7.5 Mg Tab 7.5 MG PO DAILY for Pain, TAB 0 Refills Metoclopramide (Reglan) 10 Mg Tab 10 MG PO HS, #120 TAB 0 Refills Omeprazole (Omeprazole) 40 Mg Cap 40 MG PO DAILY, #30 CAP 0 Refills Ondansetron (Zofran) 4 Mg Tab 4 MG PO Q6HR PRN for NAUSEA OR VOMITING, TAB 0 Refills Potassium Chloride ER (Potassium Chloride ER) 10 Meq Cap 10 MEQ PO DAILY for Electrolyte Replacement, #30 CAP 0 Refills Promethazine (Phenergan) 25 Mg Tablet 25 MG PO Q6H PRN for NAUSEA OR VOMITING, #30 TAB 0 Refills Ropinirole (Ropinirole) 0.25 Mg Tab 0.25 MG PO HS, #30 TAB 0 Refills Zolpidem (Ambien) 10 Mg Tab 10 MG PO HS PRN for INSOMNIA, TAB 0 Refills Discontinued Medications: Omeprazole (Omeprazole) 20 Mg Tab 20 MG PO DAILY, #30 TAB 0 Refills Nicole Duarte MD Apr 14, 2017 12:04
[2017-04-14] MEDS: ACETAMINOPHEN/HYDROcodone 325 MG/10 MG TAB PO PRN (13:06)
[2017-04-14 13:36] VITALS: O2SAT 100
== END 2017-04-14 18:47 | disposition home or self-care (01) | DRG 392 ==
LOC: PHEFT 09:15 → PHEDA 14:08 → PH3A 16:04 → PH3B 19:52
PROVIDERS: ADMIT Hospitalist; ATTEND Hospitalist
PROC: 02HV33Z Insertion of Infusion Device into Superior Vena Cava, Percutaneous Approach (ICD-10-PCS; principal; 2017-04-10)
PROC: 0DB68ZX Excision of Stomach, Via Natural or Artificial Opening Endoscopic, Diagnostic (ICD-10-PCS; 2017-04-14)
PROC: 0DBN8ZZ Excision of Sigmoid Colon, Via Natural or Artificial Opening Endoscopic (ICD-10-PCS; 2017-04-14)
PROC: 0DB38ZX Excision of Lower Esophagus, Via Natural or Artificial Opening Endoscopic, Diagnostic (ICD-10-PCS; 2017-04-14 07:55)
DX: K52.9 Noninfective gastroenteritis and colitis, unspecified (principal); I11.0 Hypertensive heart disease with heart failure; I50.9 Heart failure, unspecified; Z99.81 Dependence on supplemental oxygen; J44.1 Chronic obstructive pulmonary disease with (acute) exacerbation; E86.0 Dehydration; E87.6 Hypokalemia; K21.0 Gastro-esophageal reflux disease with esophagitis; D64.9 Anemia, unspecified; K29.80 Duodenitis without bleeding; K29.70 Gastritis, unspecified, without bleeding; K63.5 Polyp of colon; E83.42 Hypomagnesemia; M19.90 Unspecified osteoarthritis, unspecified site; F17.200 Nicotine dependence, unspecified, uncomplicated; F32.9 Major depressive disorder, single episode, unspecified; F41.9 Anxiety disorder, unspecified; Z23 Encounter for immunization; Z86.73 Personal history of transient ischemic attack (TIA), and cerebral infarction without residual deficits; Z95.5 Presence of coronary angioplasty implant and graft
CPT/HCPCS: 36556; 71045; 74176; 80048; 80053; 80307; 81001; 83605; 83690; 83735; 84155; 85025; 85027; 85610; 85730; 87040; 87493; 87804; 88305; 88312; 90471; 90686; 93005; 94640; 94664; 96361; 96374; 96375; C9113; G0008; J0610; J2270; J2405; J2550; J2930; J3475; J3480; J7030; J7608; Q0169; Q2038; Q9963

== ENCOUNTER 2017-07-14 16:44 | Inpatient (IN) | payer MEDICAID ==
[2017-07-14] VITALS (14 sets, daily range): BP systolic 70–126; BP diastolic 42–82; PULSE 77–96; RESP 15–18; TEMP 98–98.1; O2SAT 95–99
[~2017-07-14] VITALS: Ht 139.7 cm; Wt 50.0 kg
[~2017-07-14 16:44] MED LIST changes: -OMEP20TA93 PO
[2017-07-14] MEDS ORDERED: IOHEXOL 350 MG/ML 10 ML VIAL (for RAD DIAG) IVCONTRAST ONE (16:45)
[2017-07-14] MEDS ORDERED: SODIUM CHLORIDE 0.9% FLUSH 10 ML FLUSH IVF PRN (17:15)
[2017-07-14] MEDS: RESP: ALBUTEROL 2.5 MG/IPRATROPIUM 0.5 MG NEB (SCH) INH (17:24)
[2017-07-14] MEDS ORDERED: NOREPINEPHRINE-DEXTROSE DRIP 250 ML IV PRN (17:30)
[2017-07-14] MEDS ORDERED: TERBUTALINE INJ 1 MG/ML AMP SQ PRN (17:30)
--- NOTE | 2017-07-14 17:33 | RADRPT ---
EXAM DATE/TIME: 07/14/2017 17:14 [facility] COMPARISON: CHEST SINGLE AP, April 10, 2017, 11:38. INDICATIONS : Shortness of breath. MEDICAL HISTORY : Congestive heart failure. Hypertension. Chronic obstructive pulmonary disease. SURGICAL HISTORY : Coronary artery stent. Breast implants. ENCOUNTER: Initial ACUITY: 1 day PAIN SCORE: 0/10 LOCATION: Bilateral chest FINDINGS: A single view of the chest demonstrates the lungs to be symmetrically aerated with right middle lobe airspace disease. Left lung is clear. Heart size is normal. Calcified breast augmentation bilaterally . Surgical clips in the right upper abdominal quadrant characteristic of prior cholecystectomy. CONCLUSION: Plain film findings concerning for right middle lobe infiltrate. Ryder Severino MD on July 14, 2017 at 17:30 Board Certified Radiologist. This report was verified electronically.
[2017-07-14 17:40] LABS: AUTOMATED NEUTROPHIL # 5.3 TH/MM3 (1.8-7.7); BASOPHIL % 0.5 % (0.0-2.0); EOSINOPHIL # 0.8 TH/MM3 (0-0.4); EOSINOPHIL % 8.9 % (0.0-4.0); HEMATOCRIT 26.5 % (35.0-46.0); HEMOGLOBIN 9.2 GM/DL (11.6-15.3); LYMPH % 23.7 % (9.0-44.0); LYMPHOCYTE # 2.1 TH/MM3 (1.0-4.8); MEAN CELL VOLUME 101.4 FL (80.0-100.0); MEAN CORPUSCULAR HEMOGLOBIN 35.3 PG (27.0-34.0); MEAN CORPUSCULAR HGB CONC 34.8 % (32.0-36.0); MEAN PLATELET VOLUME 7.9 FL (7.0-11.0); MONO % 7.6 % (0.0-8.0); MONOCYTE # 0.7 TH/MM3 (0-0.9); NEUT % 59.3 % (16.0-70.0); PLATELET COUNT 163 TH/MM3 (150-450); RED BLOOD COUNT 2.61 MIL/MM3 (4.00-5.30); RED CELL DISTRIBUTION WIDTH 14.5 % (11.6-17.2); WHITE BLOOD COUNT 8.9 TH/MM3 (4.0-11.0)
[2017-07-14] MEDS: NOREPINEPHRINE INJ 4 MG in SODIUM CHLOR 0.9% 250 ML INJ 246 ML IV PRN ×2 (17:40→17:43)
[2017-07-14 17:47] LABS: ALBUMIN 2.8 GM/DL (3.4-5.0); ALT (GPT) 19 U/L (10-53); AST (GOT) 32 U/L (15-37); BICARBONATE 26.2 MEQ/L (21.0-32.0); BLOOD UREA NITROGEN 10 MG/DL (7-18); CALCIUM 7.7 MG/DL (8.5-10.1); CHLORIDE 108 MEQ/L (98-107); CREATININE 0.62 MG/DL (0.50-1.00); GLOMERULAR FILTRATION RATE 101 ML/MIN (>89); GLUCOSE,RANDOM 89 MG/DL (74-106); SODIUM (NA) 142 MEQ/L (136-145)
[2017-07-14 17:51] LABS: ALKALINE PHOSPHATASE 107 U/L (45-117); INTERNATIONAL NORMALIZED RATIO 1.1 RATIO; PROTHROMBIN TIME - PATIENT 11.5 SEC (9.8-11.6); TOTAL BILIRUBIN ADULT 0.3 MG/DL (0.2-1.0)
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
[2017-07-14] MEDS ORDERED: SODIUM CHLOR 0.9% 1000 ML INJ 1,000 ML IV ONE (18:30)
--- NOTE | 2017-07-14 19:01 | RADRPT ---
EXAM DATE/TIME: 07/14/2017 18:36 [facility] COMPARISON: CT ABDOMEN & PELVIS W CONTRAST, October 21, 2015, 19:59. INDICATIONS : Left lower quadrant abdominal pain. IV CONTRAST: 70 cc Omnipaque 350 (iohexol) IV ORAL CONTRAST: No oral contrast ingested. RADIATION DOSE: 5.71 CTDIvol (mGy) MEDICAL HISTORY : Cerebrovascular disease. Cardiovascular disease Hypertension.COPD, ulcer, Crohns disease, cirrohsis SURGICAL HISTORY : Appendectomy. Cholecystectomy. ENCOUNTER: Initial ACUITY: 1 day PAIN SCALE: 8/10 LOCATION: Left lower quadrant abdomen TECHNIQUE: Volumetric scanning of the abdomen and pelvis was performed. Using automated exposure control and ad justment of the mA and/or kV according to patient size, radiation dose was kept as low as reasonably achievable to obtain optimal diagnostic quality images. DICOM format image data is available electro nically for review and comparison. FINDINGS: LOWER CHEST: There is increased density in the right middle lobe. Peripherally calcified breast implants are pres ent. LIVER: Homogeneous density without lesion. The common bile duct is dilated measuring 1.2 cm likely reflecti ng a reservoir phenomenon following cholecystectomy. The patient is status post cholecystectomy. SPLEEN: Normal size without lesion. PANCREAS: Within normal limits. KIDNEYS: Normal in size and shape. There is no mass, stone or hydronephrosis. ADRENAL GLANDS: Within normal limits. VASCULAR: There is no aortic aneurysm. BOWEL/MESENTERY: There is moderate stool seen in the colon. There is questionable focal narrowing at the proximal sigm oid colon. This area measures 3 cm in length. This may simple be an area that is not as distended as the remaining aspect of the sigmoid colon. No inflammatory changes seen throughout. ABDOMINAL WALL: Within normal limits. RETROPERITONEUM: There is no lymphadenopathy. BLADDER: No wall thickening or mass. REPRODUCTIVE: Within normal limits. INGUINAL: There is no lymphadenopathy or hernia. MUSCULOSKELETAL: Is postoperative change in the lower lumbar spine. CONCLUSION: 1. No definite acute abdominal process. 2. Consolidation or atelectasis the right middle lobe. 3. Dilatation the common bile duct likely reflecting a reservoir phenomenon following cholecystectomy . 4. Questionable focal 3 cm length of nondistended sigmoid colon. This may simply be a region not as d istended the remaining aspect of the sigmoid colon. An underlying abnormality cannot be excluded. Mal Gee MD on July 14, 2017 at 18:47 Board Certified Radiologist. This report was verified electronically.
[2017-07-14] MEDS ORDERED: AZITHROMYCIN INJ 500 MG in SODIUM CHLOR 0.9% 250 ML INJ 250 ML IV STA (19:09)
[2017-07-14] MEDS ORDERED: CEFEPIME INJ 2,000 MG in SODIUM CHLORIDE 0.9% INJ 100 ML IV STA (19:09)
[2017-07-14] MEDS ORDERED: metroNIDAZOLE 500 MG INJ 100 ML IV STA (19:09)
--- NOTE | 2017-07-14 19:12 | PD ---
Physical Exam Narrative General: The patient is a well-developed well-nourished female, drowsy appearing on examination otherwise responsive and able to provide her history. Head and Neck exam: Head is normocephalic atraumatic. Eyes: EOMI, pupils are equal round and reactive to light. Nose: Midline septum with pink mucous membranes Mouth: Dentition unremarkable. Moist mucus membranes. Posterior oropharynx is not erythematous. No tonsillar hypertrophy. Uvula midline. Airway patent. Neck: No palpable lymphadenopathy. No nuchal rigidity. No thyromegaly. Cardiovascular: Regular rate and rhythm without murmurs, gallops, or rubs. No pulse deficit to the extremities on simultaneous auscultation and palpation of her radial artery. Lungs: The patient has scattered rhonchi throughout bilateral lung raya, no wheezes are audible currently. The patient has a productive sounding cough on exam. Abdomen: Soft, with reported tenderness on palpation of the left upper quadrant and midepigastric area, no other tenderness on palpation of the other quadrants of the abdomen. No guarding, rebound, or rigidity. Normal bowel sounds are audible. No tenderness on palpation of McBurney's point. Negative Allen sign. Extremities: No clubbing or cyanosis, however the patient has 1+-2+ pitting edema bilateral lower extremities with some erythema of the lower extremities noted worse on the left compared to the right. No calf tenderness on palpation. 2+ pulses in all 4 extremities. Back: No spinous process tenderness to palpation. The patient reports having a left- sided CVA tenderness on palpation. Neurologic Exam: Cranial nerves 2-12 were intact on exam. Strength is 4/5 in all 4 extremities related to generalized weakness. No sensory deficits noted. Skin Exam: No rash noted. Intact skin that is warm and dry. Data Data Last Documented VS Vital Signs Date Time Temp Pulse Resp B/P (MAP) Pulse Ox O2 Delivery O2 Flow Rate FiO2 07/14/17 20:16 89 106/56 (73) 07/14/17 19:32 16 98 Nasal Cannula 2.00 07/14/17 17:21 21 07/14/17 16:51 98.0 Orders Orders Chest, Single Ap (07/14/17 ) Complete Blood Count With Diff (07/14/17 17:08) Comprehensive Metabolic Panel (07/14/17 17:08) Act Partial Throm Time (Ptt) (07/14/17 17:08) Prothrombin Time / Inr (Pt) (07/14/17 17:08) Urinalysis - C+S If Indicated (07/14/17 17:08) Iv Access Insert/Monitor (07/14/17 17:08) Electrocardiogram (07/14/17 17:08) Ecg Monitoring (07/14/17 17:08) Oximetry (07/14/17 17:08) Oxygen Administration (07/14/17 17:08) Sodium Chloride 0.9% Flush (Ns Flush) (07/14/17 17:15) Albuterol-Ipratropium Neb (Duoneb Neb) (07/14/17 17:15) Alcohol (Ethanol) (07/14/17 17:08) Ct Abd/Pel W Iv Contrast(Rout) (07/14/17 ) Norepinephrine-Dextrose Drip (Levophed-D (07/14/17 17:30) Norepinephrine Inj (Levophed Inj) (07/14/17 17:30) Terbutaline Inj (Brethine Inj) (07/14/17 17:30) Sodium Chlor 0.9% 1000 Ml Inj (Ns 1000 M (07/14/17 18:30) Tylenol (Acetaminophen) (07/14/17 18:31) Salicylates (Aspirin) (07/14/17 18:31) Drug Screen, Random Urine (07/14/17 18:31) Urinary Catheter Insert/Apply (07/14/17 18:32) Iohexol 350 Inj (Omnipaque 350 Inj) (07/14/17 16:45) Lactic Acid Sepsis Protocol (07/14/17 19:09) Blood Culture (07/14/17 19:09) Metronidazole 500 Mg Inj (Flagyl 500 Mg (07/14/17 19:09) Cefepime Inj (Maxipime Inj) (07/14/17 19:09) Azithromycin Inj (Zithromax Inj) (07/14/17 19:09) Methylprednisolone So Succ Inj (Solumedr (07/14/17 19:15) Admit Order (Ed Use Only) (07/14/17 20:21) Fluoxetine (Prozac) (07/15/17 09:00) Metoclopramide (Reglan) (07/14/17 21:00) Ropinirole Hcl (Requip) (07/14/17 21:00) (Nf) Omeprazole (07/15/17 09:00) Labs Laboratory Tests Test 07/14/17 17:10 07/14/17 19:30 White Blood Count 8.9 TH/MM3 Red Blood Count 2.61 MIL/MM3 Hemoglobin 9.2 GM/DL Hematocrit 26.5 % Mean Corpuscular Volume 101.4 FL Mean Corpuscular Hemoglobin 35.3 PG Mean Corpuscular Hemoglobin Concent 34.8 % Red Cell Distribution Width 14.5 % Platelet Count 163 TH/MM3 Mean Platelet Volume 7.9 FL Neutrophils (%) (Auto) 59.3 % Lymphocytes (%) (Auto) 23.7 % Monocytes (%) (Auto) 7.6 % Eosinophils (%) (Auto) 8.9 % Basophils (%) (Auto) 0.5 % Neutrophils # (Auto) 5.3 TH/MM3 Lymphocytes # (Auto) 2.1 TH/MM3 Monocytes # (Auto) 0.7 TH/MM3 Eosinophils # (Auto) 0.8 TH/MM3 Basophils # (Auto) 0.0 TH/MM3 CBC Comment DIFF FINAL Differential Comment Prothrombin Time 11.5 SEC Prothromb Time International Ratio 1.1 RATIO Activated Partial Thromboplast Time 30.1 SEC Blood Urea Nitrogen 10 MG/DL Creatinine 0.62 MG/DL Random Glucose 89 MG/DL Total Protein 6.0 GM/DL Albumin 2.8 GM/DL Calcium Level 7.7 MG/DL Alkaline Phosphatase 107 U/L Aspartate Amino Transf (AST/SGOT) 32 U/L Alanine Aminotransferase (ALT/SGPT) 19 U/L Total Bilirubin 0.3 MG/DL Sodium Level 142 MEQ/L Potassium Level 3.5 MEQ/L Chloride Level 108 MEQ/L Carbon Dioxide Level 26.2 MEQ/L Anion Gap 8 MEQ/L Estimat Glomerular Filtration Rate 101 ML/MIN Salicylates Level 1.9 MG/DL Acetaminophen Level 5.7 MCG/ML Ethyl Alcohol Level LESS THAN 3 MG/DL Lactic Acid Level 0.7 mmol/L [facility] Medical Record Reviewed: Yes Supervised Visit with GABRIELLA: No Interpretation(s) Last Impressions Chest X-Ray 07/14/17 0000 Signed Impressions: Service Date/Time: Friday, July 14, 2017 17:14 - CONCLUSION: Plain film findings concerning for right middle lobe infiltrate. Ryder Severino MD Abdomen/Pelvis CT 07/14/17 0000 Signed Impressions: Service Date/Time: Friday, July 14, 2017 18:36 - CONCLUSION: 1. No definite acute abdominal process. 2. Consolidation or atelectasis the right middle lobe. 3. Dilatation the common bile duct likely reflecting a reservoir phenomenon following cholecystectomy. 4. Questionable focal 3 cm length of nondistended sigmoid colon. This may simply be a region not as distended the remaining aspect of the sigmoid colon. An underlying abnormality cannot be excluded. Mal Gee MD Differential Diagnosis Hypotension related to sepsis, versus hypotension related to overmedication, versus hypotension related to dehydration, versus pneumonia, versus urinary tract infection Narrative Course During the course of the patient's emergency department visit, the patient's history, examination, and differential diagnosis were reviewed with Dr. Lance. The patient's case was checked out to me at the conclusion of his shift. Please see his complete history and physical. The patient was placed on a cardiac nurse specialist with oximetry and frequent blood pressure monitoring. The patient had IV access obtained and blood work sent for analysis prior to my arrival. The patient presents with left-sided abdominal pain, a cough that has been productive for the last week, and generalized weakness with hypotension on arrival. The patient reports that she is only urinated twice today and feels like she is dehydrated. A Carranza catheter will be placed to gravity to carefully monitor her urine output. The patient was initially provided duo nebs 3, normal saline IV fluids, Levophed for blood pressure support. The patient's laboratory studies were reviewed and remarkable for a white count of 8.9, hemoglobin 9.2 which compared to April 14, 2017 was 10.9, this will be monitored closely, platelets 163 with 8.9 eosinophils. CMP is within normal limits, albumin 2.8. PT 11.5, PTT 30.1, alcohol level is less than 3 Radiology studies were reviewed and remarkable for a chest x-ray that showed what appeared to be a right middle lobe infiltrate, CT scan of the abdomen and pelvis showed no definite acute abdominal process, consolidation or atelectasis in the right middle lobe, dilatation of the common bile duct likely reflecting a reservoir phenomenon following cholecystectomy, questionable focal 3 cm length of nondistended sigmoid colon. This may simply be a region not as distended as the remaining aspect of the sigmoid colon. An underlying abnormality cannot be excluded. The patient's results were discussed with the patient, including the plan of care. I explained that further testing and/ or monitoring is indicated based on the patient's history, examination, and/ or laboratory findings. Therefore, I recommended admission for additional evaluation. The patient expressed understanding and was agreeable with this plan. The patient was admitted to the hospital in guarded condition and sent to a bed under the care of the therapist occupational service. Physician Communication Physician Communication The patient's case including history, pertinent physical examination findings, and laboratory studies were discussed with Dr. Schmidt. It was agreed that the patient would be admitted to the therapist occupational service. Diagnosis Primary Impression: Abdominal pain Qualified Codes: R10.9 - Unspecified abdominal pain Additional Impressions: History of ETOH abuse COPD exacerbation Pneumonia Qualified Codes: J18.1 - Lobar pneumonia, unspecified organism Hypotension Qualified Codes: I95.9 - Hypotension, unspecified Admitting Information Admitting Physician Requests: Admit Essie Hodge MD Jul 14, 2017 19:12
[2017-07-14] MEDS ORDERED: methylPREDNISolone SOD SUCC 125 MG/2 ML VIAL IV PUSH ONE (19:15)
[2017-07-14] MEDS ORDERED: RESP: ALBUTEROL 2.5 MG/3 ML NEB (PRN) INH (20:45)
[2017-07-14] MEDS ORDERED: ALBUMIN 5% INJ 500 ML IV ONE (20:45)
[2017-07-14] MEDS ORDERED: LORazepam 2 MG TAB PO PRN (20:45)
[2017-07-14] MEDS ORDERED: MORPHINE SULFATE 2 MG/ML SYRINGE IV PUSH ONE (20:45)
[2017-07-14] MEDS ORDERED: ONDANSETRON HCL 4 MG/2 ML VIAL IV PUSH ONE (20:45)
[2017-07-14] MEDS ORDERED: ACETAMINOPHEN 325 MG TAB PO PRN (20:45)
[2017-07-14] MEDS ORDERED: SODIUM CHLORIDE 0.9% FLUSH 10 ML FLUSH IV FLUSH PRN (20:45)
[2017-07-14] MEDS ORDERED: BISACODYL 10 MG SUPP RECTAL PRN (20:45)
[2017-07-14] MEDS ORDERED: ONDANSETRON HCL 4 MG/2 ML VIAL IV PUSH PRN (20:45)
[2017-07-14] MEDS ORDERED: SENNOSIDES 8.6 MG TAB PO PRN (20:45)
[2017-07-14] MEDS ORDERED: LACTULOSE SYRUP 20 GM/30 ML CUP PO PRN (20:45)
[2017-07-14] MEDS ORDERED: MAGNESIUM HYDROXIDE SUSP 30 ML CUP PO PRN (20:45)
[2017-07-14] MEDS ORDERED: FLUMAZENIL 0.5 MG/5 ML VIAL IV PUSH PRN (20:45)
[2017-07-14] MEDS ORDERED: CHLORHEXIDINE GLUCONATE 2 % 1 PACK (2 CLOTHS) TOP PRN (20:45)
[2017-07-14] MEDS ORDERED: LORazepam 2 MG/ML VIAL IV PUSH PRN ×4 (20:45)
[2017-07-14 21:00] LABS: BILIRUBIN, URINE NEG (NEG); BLOOD, URINE NEG (NEG); GLUCOSE,URINE NEG (NEG); KETONE, URINE NEG (NEG); NITRITE,URINE NEG (NEG); PH, URINE 6.5 (5.0-8.5); URINE COLOR LIGHT-YELLOW (YELLW/STRAW); URINE LEUKOCYTE ESTERASE NEG (NEG)
[2017-07-14] MEDS ORDERED: MISCELLANEOUS NURSING INFORMATION XX SCH (21:00)
[2017-07-14] MEDS ORDERED: FAMOTIDINE 20 MG/2 ML VIAL IV PUSH SCH (21:00)
[2017-07-14] MEDS: DOCUSATE SODIUM 50 MG/SENNA 8.6 MG TAB PO SCH (21:00)
--- NOTE | 2017-07-14 21:07 | HHI.HP ---
[facility] Service Critical Care Medicine Primary Care Physician No Primary Care Physician Admission Diagnosis hypotension, dehydration, rml infiltrate Diagnosis: (1) Right middle lobe pneumonia Diagnosis: Principal (2) Gastroesophageal reflux disease Diagnosis: Secondary (3) Chronic, continuous use of opioids Diagnosis: Secondary (4) Chronic prescription benzodiazepine use Diagnosis: Secondary (5) Lymphedema of both lower extremities Diagnosis: Principal (6) Hypoalbuminemia Diagnosis: Secondary (7) Macrocytic anemia Diagnosis: Secondary (8) History of ETOH abuse Diagnosis: Secondary (9) Nausea & vomiting Diagnosis: Secondary (10) COPD exacerbation Diagnosis: Secondary (11) Hypotension Diagnosis: Principal (12) Abdominal pain Diagnosis: Principal (13) Depression Diagnosis: Secondary Chief Complaint: Abdominal pain/weakness 2 days Travel History International Travel<30 Days: No Contact w/Intl Traveler <30 Da: No Traveled to Known Affected Are: No History of Present Illness This is a 52-year-old female. Admission 07/14/2017. Past medical history includes TIA/anxiety/depression, chronic benzodiazepine use, chronic opioid use, history of alcoholism, ongoing tobaccoism, coronary disease status post stent, COPD, Crohn's disease, Bridges, history of aspergillosis, chronic low back pain. She presents to [facility] clinic nausea/vomiting/abdominal pain shortness of breath. Patient was noted to be hypotensive and started on peripheral norepinephrine currently 2 mcg/min. Chest x-ray revealed right middle lobe pneumonia. CT abdomen/pelvis revealed a 1.2 cm common bile duct, proximal sigmoid narrowing with copious amounts of stool in the bowel. Patient received 2 L normal saline in the ED and was started on cefepime 2 g IV 1 and azithromycin 5 mg IV 1. Blood cultures 2, sputum, urine, influenza, Legionella and pneumococcal urinary antigens all ordered. Patient is currently requesting pain medication. Review of Systems Constitutional: COMPLAINS OF: Fatigue, Dizziness, DENIES: Fever, Weight loss, Chills Endocrine: DENIES: Polydipsia, Polyuria Eyes: DENIES: Vision loss, Double Vision Ears, nose, mouth, throat: DENIES: Tinnitus Respiratory: COMPLAINS OF: Shortness of breath, DENIES: Apneas, Sputum production Cardiovascular: DENIES: Chest pain Gastrointestinal: COMPLAINS OF: Abdominal pain, Nausea, Vomiting Genitourinary: DENIES: Urinary incontinence, Urgency Musculoskeletal: DENIES: Joint pain Integumentary: DENIES: Abnormal pigmentation, Rash Immunologic/allergic: DENIES: Eczema Neurologic: DENIES: Headache Psychiatric: COMPLAINS OF: Anxiety, Depression, DENIES: Confusion Past Family Social History Allergies: Coded Allergies: No Known Allergies (Verified Allergy, Unknown, 07/14/17) Past Medical History Major depressive disorder Anxiety disorder NOS History of TIA Insomnia COPD with ongoing tobaccoism Chronic respiratory failure on chronic oxygen History of BRIDGES History of Crohn's disease History of diabetes mellitus Chronic low back pain History of aspergillosis Chronic opioid use Chronic benzodiazepine use Gastroesophageal reflux disease Past Surgical History 3 Asif rods in the back Coronary artery stent 1998 AV shunt 1998 Cholecystectomy Appendectomy Bilateral breast implants Reported Medications Promethazine 25 mg every 6 hours as needed nausea Meloxicam 7.5 mg p.o. daily Hydrocodone/acetaminophen 5/325 1 tablet every 6 hours as needed pain Fluoxetine 20 mg p.o. daily Alprazolam 1 mg p.o. twice daily as needed Zolpidem 10 mg at night as needed insomnia Ropinirole 0.25 mg at night Omeprazole 40 mg p.o. daily Potassium chloride 10 mg p.o. daily Metoclopramide 10 mg nightly Active Ordered Medications Reviewed in EMR Family History Father from myocardial infarction. Mother from failure to thrive Social History Three quarters per day per day tobacco. Occasional alcohol use. Prior alcoholism. Denies IV drug use Physical Exam Vital Signs Vital Signs Date Time Temp Pulse Resp B/P (MAP) Pulse Ox O2 Delivery O2 Flow Rate FiO2 07/14/17 20:46 91 114/67 (83) 07/14/17 20:16 89 106/56 (73) 07/14/17 19:32 88 16 109/58 (75) 98 Nasal Cannula 2.00 07/14/17 19:04 95 16 103/54 (70) 95 Nasal Cannula 4.00 07/14/17 18:33 96 18 126/60 (82) 99 Room Air 07/14/17 18:16 88 16 89/55 (66) 97 Room Air 07/14/17 17:58 86 16 91/54 (66) 98 Room Air 07/14/17 17:43 80 77/44 07/14/17 17:21 95 21 07/14/17 17:05 78 16 79/48 (58) 97 Room Air 07/14/17 17:04 16 07/14/17 16:51 98.0 77 16 70/42 (41) 87 Physical Exam GENERAL: 52-year-old female currently resting in bed in no acute distress eating chocolate requesting pain medication SKIN: Warm and dry. HEAD: Atraumatic. Normocephalic. EYES: Pupils equal and round about 3 mm bilaterally and reactive no scleral icterus. No injection or drainage. ENT: No nasal bleeding or discharge. Mucous membranes pink and moist. NECK: Trachea midline. No JVD. Bilateral external jugular IV are in place CARDIOVASCULAR: Regular rate and rhythm. S1, S2 predose without murmur RESPIRATORY: No accessory muscle use. Clear to auscultation. Breath sounds equal bilaterally. GASTROINTESTINAL: Abdomen soft, vaguely tender to palpation all 4 quadrants. No guarding or rigidity. Hypoactive bowel sounds are appreciated MUSCULOSKELETAL: Extremities chronic 1-2+ bilateral lower extremity edema. NEUROLOGICAL: Awake and alert. No obvious cranial nerve deficits. Motor grossly within normal limits. Five out of 5 muscle strength in the arms and legs. Normal speech. PSYCHIATRIC: Appropriate mood and affect; insight and judgment normal. Laboratory Laboratory Tests Test 07/14/17 17:10 07/14/17 19:30 07/14/17 20:30 White Blood Count 8.9 Red Blood Count 2.61 Hemoglobin 9.2 Hematocrit 26.5 Mean Corpuscular Volume 101.4 Mean Corpuscular Hemoglobin 35.3 Mean Corpuscular Hemoglobin Concent 34.8 Red Cell Distribution Width 14.5 Platelet Count 163 Mean Platelet Volume 7.9 Neutrophils (%) (Auto) 59.3 Lymphocytes (%) (Auto) 23.7 Monocytes (%) (Auto) 7.6 Eosinophils (%) (Auto) 8.9 Basophils (%) (Auto) 0.5 Neutrophils # (Auto) 5.3 Lymphocytes # (Auto) 2.1 Monocytes # (Auto) 0.7 Eosinophils # (Auto) 0.8 Basophils # (Auto) 0.0 CBC Comment DIFF FINAL Differential Comment Prothrombin Time 11.5 Prothromb Time International Ratio 1.1 Activated Partial Thromboplast Time 30.1 Blood Urea Nitrogen 10 Creatinine 0.62 Random Glucose 89 Total Protein 6.0 Albumin 2.8 Calcium Level 7.7 Alkaline Phosphatase 107 Aspartate Amino Transf (AST/SGOT) 32 Alanine Aminotransferase (ALT/SGPT) 19 Total Bilirubin 0.3 Sodium Level 142 Potassium Level 3.5 Chloride Level 108 Carbon Dioxide Level 26.2 Anion Gap 8 Estimat Glomerular Filtration Rate 101 Salicylates Level 1.9 Acetaminophen Level 5.7 Ethyl Alcohol Level LESS THAN 3 Lactic Acid Level 0.7 Result Diagram: 07/14/17 1710 07/14/17 1710 Imaging Last Impressions Chest X-Ray 07/14/17 0000 Signed Impressions: Service Date/Time: Friday, July 14, 2017 17:14 - CONCLUSION: Plain film findings concerning for right middle lobe infiltrate. Ryder Severino MD Abdomen/Pelvis CT 07/14/17 0000 Signed Impressions: Service Date/Time: Friday, July 14, 2017 18:36 - CONCLUSION: 1. No definite acute abdominal process. 2. Consolidation or atelectasis the right middle lobe. 3. Dilatation the common bile duct likely reflecting a reservoir phenomenon following cholecystectomy. 4. Questionable focal 3 cm length of nondistended sigmoid colon. This may simply be a region not as distended the remaining aspect of the sigmoid colon. An underlying abnormality cannot be excluded. Mal Gee MD Septic Shock Reassessment Septic shock perfusion: reassessment completed Caprini VTE Risk Assessment Caprini VTE Risk Assessment: Mod/High Risk (score >= 2) VTE Pharm Contraindication: Documented Caprini Risk Assessment Model Point Value = 1 Point Value = 2 Point Value = 3 Point Value = 5 Age 41-60 Minor surgery BMI > 25 kg/m2 Swollen legs Varicose veins or History of unexplained or recurrent spontaneous Oral contraceptives or hormone replacement Sepsis (< 1 month) Serious lung disease, including pneumonia (< 1 month) Abnormal pulmonary function Acute myocardial infarction Congestive heart failure (< 1 month) History of inflammatory bowel disease Medical patient at bed rest Age 61-74 Arthroscopic surgery Major open surgery (> 45 min) Laparoscopic surgery (> 45 min) Malignancy Confined to bed (> 72 hours) Immobilizing plaster cast Central venous access Age >= 75 History of VTE Family history of VTE Factor V Leiden Prothrombin [id number] Lupus anticoagulant Anticardiolipin antibodies Elevated serum homocysteine Heparin-induced thrombocytopenia Other congenital or acquired thrombophilia Stroke (< 1 month) Elective arthroplasty Hip, pelvis, or leg fracture Acute spinal cord injury (< 1 month) Prophylaxis Regimen Total Risk Factor Score Risk Level Prophylaxis Regimen 0-1 Low Early ambulation 2 Moderate Order ONE of the following: *Sequential Compression Device (SCD) *Heparin 5000 units SQ BID 3-4 Higher Order ONE of the following medications: *Heparin 5000 units SQ TID *Enoxaparin/Lovenox 40 mg SQ daily (WT < 150 kg, CrCl > 30 mL/min) *Enoxaparin/Lovenox 30 mg SQ daily (WT < 150 kg, CrCl > 10-29 mL/min) *Enoxaparin/Lovenox 30 mg SQ BID (WT < 150 kg, CrCl > 30 mL/min) AND/OR *Sequential Compression Device (SCD) 5 or more Highest Order ONE of the following medications: *Heparin 5000 units SQ TID (Preferred with Epidurals) *Enoxaparin/Lovenox 40 mg SQ daily (WT < 150 kg, CrCl > 30 mL/min) *Enoxaparin/Lovenox 30 mg SQ daily (WT < 150 kg, CrCl > 10-29 mL/min) *Enoxaparin/Lovenox 30 mg SQ BID (WT < 150 kg, CrCl > 30 mL/min) AND *Sequential Compression Device (SCD) Assessment and Plan Assessment and Plan Neuro/Psych: Depression/anxiety History of TIA Insomnia Alcoholism Chronic benzodiazepine use Chronic opiate use Acetaminophen 650 mg p.o. every 6 hours as needed fever Hydrocodone/acetaminophen 5/25 1 tablet every 4 hours as needed pain 1 through 5 Morphine sulfate 2 mg IV every 2 hours as needed pain 6 - 10 Patient takes oxycodone/acetaminophen 5/325 1 tablet every 6 hours as needed pain. Currently on hold Patient is on fluoxetine 20 mg p.o. daily for depression. Continue Patient takes alprazolam 1 mg twice daily as needed for anxiety at home.. Hold Patient takes zolpidem 10 mg at night for insomnia at home. Full Patient takes ropinirole 0.25 mg at night. Continue Thiamine, folate and multivitamin daily EtOH Monitor for DTs CIWA if indicated CV: Septic shock secondary to community acquired pneumonia History of coronary artery disease status post stent 1998 Moderate TR Currently both with 2 L normal saline Currently on norepinephrine 2 mcg/min to maintain mean arterial pressure greater than equal to 65 Lactate 0.7 Not on any home antihypertensives She states her baseline blood pressure is 90/60 2D echocardiogram 10/07 revealed EF around 60%. No regional wall motion male. 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 Patient status post cholecystectomy. Proximal sigmoid narrowing?. Colon is full of stool. Currently n.p.o. except for medication Pantoprazole for GI prophylaxis. Patient is on omeprazole 40 mg p.o. daily at home Docusate sodium/senna 1 tablet twice daily for bowel regimen Continue metoclopramide 10 mg at night/home medication : Carranza catheter if indicated for accurate I's and O's in a critically ill patient Endo: Sliding scale insulin with Accu-Cheks to maintain euglycemia/every before meals/ at bedtime Novulin R Renal: Creatinine currently within normal limits Monitor urine output Accurate I's and O's Heme: Macrocytic anemia Monitor CBC daily. Follow trends Coags ordered and pending ID: Community acquired pneumonia/right middle lobe Cefepime, azithromycin day #1. Received 1 dose of metronidazole in ED Blood cultures 2, sputum, urine, urine Legionella pneumococcal antigen and influenza all ordered FEN Replace electrolytes as clinically indicated per ICU electrolyte protocol MSK: PT evaluate and treat Access Utilized peripheral IV. Central line if indicated Prophylaxis -GI -pantoprazole -DVT -SCD/heparin subcu Level 3 admission Code Status Full code Discussed Condition With Dr. Hodge. Care plan discussed and all questions answered. Problem Qualifiers (1) Gastroesophageal reflux disease: Qualified Codes: K21.9 - Gastro-esophageal reflux disease without esophagitis (2) Nausea & vomiting: Qualified Codes: R11.2 - Nausea with vomiting, unspecified (3) Hypotension: Qualified Codes: I95.9 - Hypotension, unspecified (4) Abdominal pain: Qualified Codes: R10.9 - Unspecified abdominal pain (5) Depression: Qualified Codes: F33.1 - Major depressive disorder, recurrent, moderate Jerry Schmidt MD Jul 14, 2017 21:07
[2017-07-14] MEDS ORDERED: MAGNESIUM OXIDE 400 MG TAB PO PRN (21:45)
[2017-07-14] MEDS ORDERED: POTASSIUM CHLOR 40 MEQ PREMIX 100 ML IV PRN ×2 (21:45)
[2017-07-14] MEDS ORDERED: SODIUM PHOSPHATE INJ 30 MMOL in SODIUM CHLOR 0.9% 250 ML INJ 240 ML IV PRN (21:45)
[2017-07-14] MEDS ORDERED: MAGNESIUM SULFATE INJ 2 GM in SODIUM CHLORIDE 0.9% INJ 96 ML IV PRN (21:45)
[2017-07-14] MEDS ORDERED: POTASSIUM PHOSPHATE INJ 30 MMOL in SODIUM CHLOR 0.9% 250 ML INJ 250 ML IV PRN (21:45)
[2017-07-14] MEDS ORDERED: POTASSIUM PHOSPHATE MONOBASIC 500 MG TAB PO/TUBE PRN (21:45)
[2017-07-14] MEDS ORDERED: DEXTROSE 50% IN WATER 50 ML VIAL(D50) IV PUSH PRN (21:45)
[2017-07-14] MEDS ORDERED: POTASSIUM CHLORIDE 25 MEQ EFFERVESCENT TAB PO PRN (21:45)
[2017-07-14] MEDS ORDERED: POTASSIUM CHLOR 20 MEQ PREMIX 100 ML IV PRN ×2 (21:45)
[2017-07-14] MEDS ORDERED: MAGNESIUM SULFATE INJ 4 GM in SODIUM CHLORIDE 0.9% INJ 92 ML IV PRN (21:45)
[2017-07-14] MEDS ORDERED: POTASSIUM PHOSPHATE MONOBASIC 500 MG TAB PO PRN (21:45)
[2017-07-14] MEDS ORDERED: GLUCAGON 1 MG/ML VIAL OTHER PRN (21:45)
[2017-07-14] MEDS: SODIUM CHLORIDE 0.9% FLUSH 10 ML FLUSH IV FLUSH SCH (23:54)
[2017-07-15] VITALS (12 sets, daily range): BP systolic 96–114; BP diastolic 55–82; PULSE 15–103; RESP 13–18; TEMP 97.4–98.1; O2SAT 96–100
[2017-07-15] MEDS: METOCLOPRAMIDE HCL 10 MG TAB PO SCH ×2 (00:07→20:45)
[2017-07-15] MEDS: HEPARIN SODIUM - SQ 10,000 UNITS/ML VIAL SQ SCH ×3 (00:08→20:46)
[2017-07-15] MEDS: SODIUM CHLOR 0.9% 1000 ML INJ 1,000 ML IV SCH ×3 (00:08→20:52)
[2017-07-15] MEDS: RESP: ALBUTEROL 2.5 MG/IPRATROPIUM 0.5 MG NEB (SCH) INH ×5 (00:40→20:07)
[2017-07-15] MEDS: CHLORHEXIDINE GLUCONATE 2 % 1 PACK (2 CLOTHS) TOP SCH (03:43)
[2017-07-15 04:46] LABS: AUTOMATED NEUTROPHIL # 6.4 TH/MM3 (1.8-7.7); BASOPHIL % 0.1 % (0.0-2.0); HEMATOCRIT 25.1 % (35.0-46.0); HEMOGLOBIN 8.8 GM/DL (11.6-15.3); LYMPH % 3.9 % (9.0-44.0); LYMPHOCYTE # 0.3 TH/MM3 (1.0-4.8); MEAN CELL VOLUME 101.4 FL (80.0-100.0); MEAN CORPUSCULAR HEMOGLOBIN 35.4 PG (27.0-34.0); MEAN CORPUSCULAR HGB CONC 34.9 % (32.0-36.0); MEAN PLATELET VOLUME 7.6 FL (7.0-11.0); MONO % 0.6 % (0.0-8.0); NEUT % 95.4 % (16.0-70.0); PLATELET COUNT 146 TH/MM3 (150-450); RED BLOOD COUNT 2.48 MIL/MM3 (4.00-5.30); RED CELL DISTRIBUTION WIDTH 14.8 % (11.6-17.2); WHITE BLOOD COUNT 6.7 TH/MM3 (4.0-11.0)
[2017-07-15 04:50] LABS: INTERNATIONAL NORMALIZED RATIO 1.1 RATIO; PROTHROMBIN TIME - PATIENT 11.1 SEC (9.8-11.6)
[2017-07-15 05:11] LABS: ALBUMIN 3.3 GM/DL (3.4-5.0); CALCIUM-PROTEIN CORRECTED 7.6 MG/DL (8.5-10.1); CREATININE 0.56 MG/DL (0.50-1.00); PHOSPHORUS 3.2 MG/DL (2.5-4.9); TOTAL BILIRUBIN ADULT 0.3 MG/DL (0.2-1.0)
[2017-07-15] MEDS: CEFEPIME INJ 2,000 MG in SODIUM CHLORIDE 0.9% INJ 100 ML IV SCH ×3 (05:41→20:43)
[2017-07-15] MEDS ORDERED: POTASSIUM CHLORIDE 25 MEQ EFFERVESCENT TAB PO ONE (07:00)
[2017-07-15] MEDS: PANTOPRAZOLE SOD 40 MG DELAYED RELEASE TAB PO SCH (07:50)
[2017-07-15] MEDS: THIAMINE HCL 100 MG TAB PO SCH (07:51)
[2017-07-15] MEDS: MULTIVITAMINS/MINERALS THERAPEUTIC TAB PO SCH (07:51)
[2017-07-15] MEDS: DOCUSATE SODIUM 50 MG/SENNA 8.6 MG TAB PO SCH ×2 (07:51→20:45)
[2017-07-15] MEDS: MAGNESIUM SULFATE 1 GM PREMIX 100 ML IV SCH ×2 (07:51→09:02)
[2017-07-15] MEDS: methylPREDNISolone SOD SUCC 40 MG/1 ML VIAL IV PUSH SCH ×2 (07:51→20:44)
[2017-07-15] MEDS: FOLIC ACID 1 MG TAB PO SCH (07:51)
[2017-07-15] MEDS: FLUoxetine HCL 20 MG CAP PO SCH (07:51)
[2017-07-15] MEDS: ARTIFICIAL TEARS OPTH SOLN 15 ML BTL EACH EYE SCH ×4 (07:52→22:00)
[2017-07-15] MEDS: SODIUM CHLORIDE 0.9% FLUSH 10 ML FLUSH IV FLUSH SCH ×2 (07:52→20:44)
[2017-07-15] MEDS: MORPHINE SULFATE 4 MG/ML INJ IV PUSH PRN ×5 (08:59→23:49)
[2017-07-15] MEDS: INSULIN NovoLIN REGULAR SUPPLEMENTAL SCALE SQ SCH ×4 (09:12→20:44)
--- NOTE | 2017-07-15 09:48 | HHI.CCPN ---
Subjective Remarks/Hospital Course This is a 52-year-old female. Admission 07/14/2017. Past medical history includes TIA/anxiety/depression, chronic benzodiazepine use, chronic opioid use, history of alcoholism, ongoing tobaccoism, coronary disease status post stent, COPD, Crohn's disease, Brid[place], history of aspergillosis, chronic low back pain. She presents to [facility] clinic nausea/vomiting/abdominal pain shortness of breath. Patient was noted to be hypotensive and started on peripheral norepinephrine currently 2 mcg/min. Chest x-ray revealed right middle lobe pneumonia. CT abdomen/pelvis revealed a 1.2 cm common bile duct, proximal sigmoid narrowing with copious amounts of stool in the bowel. Patient received 2 L normal saline in the ED and was started on cefepime 2 g IV 1 and azithromycin 5 mg IV 1. Blood cultures 2, sputum, urine, influenza, Legionella and pneumococcal urinary antigens all ordered. Patient is currently requesting pain medication. 07/15: Patient is breathing comfortably. Levophed has been weaned off since 11: 30 PM yesterday night. Complains of generalized pain, continues to ask for morphine Objective Vital Signs Date Time Temp Pulse Resp B/P (MAP) Pulse Ox O2 Delivery O2 Flow Rate FiO2 07/15/17 09:12 18 07/15/17 08:54 100 Nasal Cannula 2.00 07/15/17 06:00 84 07/15/17 04:00 97.8 114/61 (78) 07/14/17 17:21 21 Intake and Output 07/15/17 07/15/17 07/16/17 08:00 16:00 00:00 Intake Total 1106.5 ml Output Total 900 ml Balance 206.5 ml Result Diagram: 07/15/17 0410 07/15/17 0410 Other Results Microbiology Date/Time Source Procedure Growth Status 07/15/17 03:15 Nasal Aspirate Influenza Types A,B Antigen (MEL) - Final NEGATIVE FOR FLU A AND B ANTIGEN.... Complete Imaging Last Impressions Chest X-Ray 07/14/17 0000 Signed Impressions: Service Date/Time: Friday, July 14, 2017 17:14 - CONCLUSION: Plain film findings concerning for right middle lobe infiltrate. Ryder Severino MD Abdomen/Pelvis CT 07/14/17 0000 Signed Impressions: Service Date/Time: Friday, July 14, 2017 18:36 - CONCLUSION: 1. No definite acute abdominal process. 2. Consolidation or atelectasis the right middle lobe. 3. Dilatation the common bile duct likely reflecting a reservoir phenomenon following cholecystectomy. 4. Questionable focal 3 cm length of nondistended sigmoid colon. This may simply be a region not as distended the remaining aspect of the sigmoid colon. An underlying abnormality cannot be excluded. Mal Gee MD Objective Remarks GENERAL: 52-year-old female currently resting in bed in no acute distress SKIN: Warm and dry. HEAD: Atraumatic. Normocephalic. EYES: Pupils equal and round about 3 mm bilaterally and reactive no scleral icterus. No injection or drainage. ENT: No nasal bleeding or discharge. Mucous membranes pink and moist. NECK: Trachea midline. No JVD. Bilateral external jugular IV are in place CARDIOVASCULAR: Regular rate and rhythm. S1, S2 predose without murmur RESPIRATORY: No accessory muscle use. Few coarse rhonchi. Breath sounds equal bilaterally. GASTROINTESTINAL: Abdomen soft, vaguely tender to palpation all 4 quadrants. MUSCULOSKELETAL: Extremities chronic 1-2+ bilateral lower extremity edema. NEUROLOGICAL: Awake and alert. No obvious cranial nerve deficits. Motor grossly within normal limits. A/P Assessment and Plan Neuro/Psych: Depression/anxiety History of TIA Insomnia Alcoholism Chronic benzodiazepine use Chronic opiate use Acetaminophen 650 mg p.o. every 6 hours as needed fever Hydrocodone/acetaminophen 5/25 1 tablet every 4 hours as needed pain 1 through 5 Morphine sulfate 2 mg IV every 2 hours as needed pain 6 - 10 Patient takes oxycodone/acetaminophen 5/325 1 tablet every 6 hours as needed pain. Currently on hold Patient is on fluoxetine 20 mg p.o. daily for depression. Continue Patient takes alprazolam 1 mg twice daily as needed for anxiety at home. Resume when appropriate Patient takes zolpidem 10 mg at night for insomnia at home. Patient takes ropinirole 0.25 mg at night. Continue Thiamine, folate and multivitamin daily EtOH Monitor for DTs, CIWA if indicated CV: Septic shock secondary to community acquired pneumonia-resolved History of coronary artery disease status post stent 1998 Moderate TR s/p 2 L normal saline. Off norepinephrine Not on any home antihypertensives She states her baseline blood pressure is 90/60 2D echocardiogram 10/07 revealed EF around 60%. No regional wall motion male. 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 Patient status post cholecystectomy. Proximal sigmoid narrowing?. Colon is full of stool. Currently n.p.o. except for medication. Start heart healthy diet Pantoprazole for GI prophylaxis. Patient is on omeprazole 40 mg p.o. daily at home Docusate sodium/senna 1 tablet twice daily for bowel regimen Continue metoclopramide 10 mg at night/home medication : Carranza catheter if indicated for accurate I's and O's in a critically ill patient Endo: Sliding scale insulin with Accu-Cheks to maintain euglycemia/every before meals/ at bedtime Novulin R Renal: Creatinine currently within normal limits Monitor urine output Accurate I's and O's Heme: Macrocytic anemia Monitor CBC daily. Follow trends Coags ordered and pending ID: Community acquired pneumonia/right middle lobe Cefepime, azithromycin day #2. Received 1 dose of metronidazole in ED Blood cultures 2, sputum, urine, urine Legionella pneumococcal antigen and influenza all ordered, f/u FEN Replace electrolytes as clinically indicated per ICU electrolyte protocol MSK: PT evaluate and treat Access Utilized peripheral IV. Central line if indicated Prophylaxis -GI -pantoprazole -DVT -SCD/heparin subcu Level 2 Consult hospitalist to assume care in a.m.. transfer to Med surg with Tele Shameka Resendez MD Jul 15, 2017 09:48
--- NOTE | 2017-07-15 15:33 | EKG ---
Date Performed: 07/14/2017 Time Performed: 17:20:44 PTAGE: 52 years EKG: Sinus rhythm POSSIBLE LEFT ATRIAL ENLARGEMENT BORDERLINE ECG Since the PREVIOUS TRACING , no significant change noted PREVIOUS TRACIN04/10/2017 09.27 DOCTOR: Olayinka Solomon Interpretating Date/Time 07/15/2017 15:23:26
[2017-07-15 16:41] LABS: MAGNESIUM 1.8 MG/DL (1.5-2.5)
[2017-07-15] MEDS: AZITHROMYCIN INJ 500 MG in SODIUM CHLOR 0.9% 250 ML INJ 250 ML IV SCH (20:43)
[2017-07-16] VITALS (12 sets, daily range): BP systolic 95–136; BP diastolic 52–73; PULSE 85–102; RESP 16–18; TEMP 97.9–98.6; O2SAT 92–99
[2017-07-16] MEDS: RESP: ALBUTEROL 2.5 MG/IPRATROPIUM 0.5 MG NEB (SCH) INH ×7 (00:04→23:17)
[2017-07-16] MEDS: BENZONATATE 100 MG CAP PO PRN ×2 (01:06→22:36)
[2017-07-16] MEDS: guaiFENesin/DEXTROMETHORPHAN 200 MG/20 MG/10 ML CUP PO PRN (01:06)
[2017-07-16] MEDS: CHLORHEXIDINE GLUCONATE 2 % 1 PACK (2 CLOTHS) TOP SCH (03:09)
[2017-07-16] MEDS: CEFEPIME INJ 2,000 MG in SODIUM CHLORIDE 0.9% INJ 100 ML IV SCH ×3 (04:34→22:39)
[2017-07-16] MEDS: ACETAMINOPHEN/HYDROcodone 325 MG/5 MG TAB PO PRN (04:34)
[2017-07-16] MEDS: INSULIN NovoLIN REGULAR SUPPLEMENTAL SCALE SQ SCH ×4 (08:00→21:00)
[2017-07-16] MEDS: SODIUM CHLOR 0.9% 1000 ML INJ 1,000 ML IV SCH ×2 (08:45→20:40)
[2017-07-16] MEDS: SODIUM CHLORIDE 0.9% FLUSH 10 ML FLUSH IV FLUSH SCH ×2 (08:52→20:18)
[2017-07-16] MEDS: DOCUSATE SODIUM 50 MG/SENNA 8.6 MG TAB PO SCH ×3 (08:57→20:17)
[2017-07-16] MEDS: THIAMINE HCL 100 MG TAB PO SCH (08:57)
[2017-07-16] MEDS: methylPREDNISolone SOD SUCC 40 MG/1 ML VIAL IV PUSH SCH ×2 (08:57→20:16)
[2017-07-16] MEDS: MULTIVITAMINS/MINERALS THERAPEUTIC TAB PO SCH (08:58)
[2017-07-16] MEDS: PANTOPRAZOLE SOD 40 MG DELAYED RELEASE TAB PO SCH (08:58)
[2017-07-16] MEDS: HEPARIN SODIUM - SQ 10,000 UNITS/ML VIAL SQ SCH ×2 (08:58→20:17)
[2017-07-16] MEDS: FLUoxetine HCL 20 MG CAP PO SCH (08:58)
[2017-07-16] MEDS: FOLIC ACID 1 MG TAB PO SCH (08:58)
[2017-07-16] MEDS: MORPHINE SULFATE 4 MG/ML INJ IV PUSH PRN ×4 (10:10→22:36)
[2017-07-16] MEDS ORDERED: NEBULIZER1 MI1 (11:36)
[2017-07-16] MEDS: ARTIFICIAL TEARS OPTH SOLN 15 ML BTL EACH EYE SCH ×2 (12:21→17:48)
[2017-07-16 14:06] LABS: AUTOMATED NEUTROPHIL # 9.6 TH/MM3 (1.8-7.7); BASOPHIL % 0.1 % (0.0-2.0); HEMOGLOBIN 8.5 GM/DL (11.6-15.3); LYMPH % 4.3 % (9.0-44.0); LYMPHOCYTE # 0.4 TH/MM3 (1.0-4.8); MEAN CELL VOLUME 103.3 FL (80.0-100.0); MEAN CORPUSCULAR HGB CONC 33.9 % (32.0-36.0); MEAN PLATELET VOLUME 8.1 FL (7.0-11.0); MONO % 1.3 % (0.0-8.0); MONOCYTE # 0.1 TH/MM3 (0-0.9); NEUT % 94.3 % (16.0-70.0); PLATELET COUNT 157 TH/MM3 (150-450); RED BLOOD COUNT 2.42 MIL/MM3 (4.00-5.30); RED CELL DISTRIBUTION WIDTH 15.3 % (11.6-17.2); WHITE BLOOD COUNT 10.2 TH/MM3 (4.0-11.0)
--- NOTE | 2017-07-16 15:23 | HHI.PR ---
Subjective Remarks Patient reported "feeling sick" Left abdominal pain No fever Objective Vitals Vital Signs Date Time Temp Pulse Resp B/P (MAP) Pulse Ox O2 Delivery O2 Flow Rate FiO2 07/16/17 12:00 97.9 91 18 134/70 (91) 99 07/16/17 11:09 97 Nasal Cannula 2.00 07/16/17 10:58 Nasal Cannula 2.00 21 07/16/17 09:21 98 Nasal Cannula 2.00 07/16/17 08:31 97.9 88 18 103/57 (72) 98 07/16/17 05:42 18 07/16/17 04:00 88 07/16/17 04:00 98.6 93 16 100/52 (68) 98 07/16/17 01:03 99 Nasal Cannula 2.00 07/16/17 00:22 18 07/16/17 00:00 98.6 102 16 95/55 (68) 92 07/16/17 00:00 97 07/15/17 20:08 97 Nasal Cannula 2.00 07/15/17 20:00 84 07/15/17 20:00 99 Nasal Cannula 2.00 07/15/17 20:00 98.1 15 16 109/82 (91) 97 07/15/17 16:00 97.6 94 18 105/57 (73) 97 07/15/17 16:00 103 I/O 07/15/17 07/15/17 07/15/17 07/16/17 07/16/17 07/16/17 07:00 15:00 23:00 07:00 15:00 23:00 Intake Total 1106.5 ml 1535 ml 350 ml 585 ml Output Total 900 ml 500 ml Balance 206.5 ml 1035 ml 350 ml 585 ml Intake Oral 0 ml 750 ml IV Total 1106.5 ml 785 ml 350 ml 585 ml Output Urine Total 900 ml 500 ml # Bowel Movements 1 Result Diagram: 07/16/17 1248 07/15/17 1503 Objective Remarks GENERAL: This is a well-nourished, well-developed patient, in no apparent distress. CARDIOVASCULAR: RRR, no gallops, or rubs. RESPIRATORY: Positive wheezing bilaterally GASTROINTESTINAL: Abdomen soft, non-tender, nondistended. Positive bowel sounds MUSCULOSKELETAL: Extremities without clubbing, cyanosis, or edema. Pedal pulses appreciated NEUROLOGICAL: Awake and alert. Moves all extremity. Normal speech.no focal neurological deficit A/P Problem List: (1) Right middle lobe pneumonia ICD Code: J18.1 - Lobar pneumonia, unspecified organism (2) Gastroesophageal reflux disease ICD Code: K21.9 - Gastro-esophageal reflux disease without esophagitis (3) Chronic, continuous use of opioids ICD Code: F11.90 - Opioid use, unspecified, uncomplicated (4) Chronic prescription benzodiazepine use ICD Code: Z79.899 - Other intermediate project manager (current) drug therapy (5) Lymphedema of both lower extremities ICD Code: I89.0 - Lymphedema, not elsewhere classified (6) Hypoalbuminemia ICD Code: E88.09 - Other disorders of plasma-protein metabolism, not elsewhere classified (7) Macrocytic anemia ICD Code: D53.9 - Nutritional anemia, unspecified (8) History of ETOH abuse ICD Code: Z87.898 - Personal history of other specified conditions Status: Acute (9) Nausea & vomiting ICD Code: R11.2 - Nausea with vomiting, unspecified Status: Acute (10) COPD exacerbation ICD Code: J44.1 - Obstructive chronic bronchitis with exacerbation Status: Acute (11) Hypotension ICD Code: I95.9 - Hypotension, unspecified Status: Acute (12) Abdominal pain ICD Code: R10.9 - Unspecified abdominal pain Status: Acute (13) Depression ICD Code: F32.9 - Major depressive disorder, single episode, unspecified Assessment and Plan 52 years old female with 07/16: Repeat BMP tomorrow to verify on level of calcium which was low yesterday , continue current care with antibiotic, monitor improvement Depression/anxiety History of TIA Insomnia Alcoholism Chronic benzodiazepine use Chronic opiate use Acetaminophen 650 mg p.o. every 6 hours as needed fever Hydrocodone/acetaminophen 5/25 1 tablet every 4 hours as needed pain 1 through 5 Morphine sulfate 2 mg IV every 2 hours as needed pain 6 - 10 Patient takes oxycodone/acetaminophen 5/325 1 tablet every 6 hours as needed pain. Currently on hold Patient is on fluoxetine 20 mg p.o. daily for depression. Continue Patient takes alprazolam 1 mg twice daily as needed for anxiety at home. Resume when appropriate Patient takes zolpidem 10 mg at night for insomnia at home. Patient takes ropinirole 0.25 mg at night. Continue Thiamine, folate and multivitamin daily EtOH Monitor for DTs, CIWA if indicated Septic shock secondary to community acquired pneumonia-resolved History of coronary artery disease status post stent 1998 Moderate TR s/p 2 L normal saline. Off norepinephrine Not on any home antihypertensives She states her baseline blood pressure is 90/60 2D echocardiogram 10/07 revealed EF around 60%. No regional wall motion male. 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 Patient status post cholecystectomy. Proximal sigmoid narrowing?. Colon is full of stool. Currently n.p.o. except for medication. Start heart healthy diet Pantoprazole for GI prophylaxis. Patient is on omeprazole 40 mg p.o. daily at home Docusate sodium/senna 1 tablet twice daily for bowel regimen Continue metoclopramide 10 mg at night/home medication Macrocytic anemia Monitor CBC daily. Follow trends Coags ordered and pending Community acquired pneumonia/right middle lobe Cefepime, azithromycin day #2. Received 1 dose of metronidazole in ED Blood cultures 2, sputum, urine, urine Legionella pneumococcal antigen and influenza all ordered, f/u FEN Replace electrolytes as clinically indicated per ICU electrolyte protocol MSK: PT evaluate and treat Access Utilized peripheral IV. Central line if indicated Prophylaxis -GI -pantoprazole -DVT -SCD/heparin subcu Problem Qualifiers (1) Gastroesophageal reflux disease: Qualified Codes: K21.9 - Gastro-esophageal reflux disease without esophagitis (2) Nausea & vomiting: Qualified Codes: R11.2 - Nausea with vomiting, unspecified (3) Hypotension: Qualified Codes: I95.9 - Hypotension, unspecified (4) Abdominal pain: Qualified Codes: R10.9 - Unspecified abdominal pain (5) Depression: Qualified Codes: F33.1 - Major depressive disorder, recurrent, moderate Hawa Ivy MD Jul 16, 2017 15:23
[2017-07-16] MEDS: LORazepam 1 MG TAB PO PRN (16:03)
[2017-07-16] MEDS: AZITHROMYCIN INJ 500 MG in SODIUM CHLOR 0.9% 250 ML INJ 250 ML IV SCH (20:16)
[2017-07-16] MEDS: METOCLOPRAMIDE HCL 10 MG TAB PO SCH (20:17)
[2017-07-16] MEDS ORDERED: ZOLPIDEM TARTRATE 10 MG TAB PO ONE (22:45)
[2017-07-17] VITALS (14 sets, daily range): BP systolic 114–132; BP diastolic 61–76; PULSE 79–100; RESP 17–18; TEMP 98.3–98.9; O2SAT 96–99
[2017-07-17] MEDS: MORPHINE SULFATE 4 MG/ML INJ IV PUSH PRN ×9 (01:41→23:11)
[2017-07-17] MEDS: RESP: ALBUTEROL 2.5 MG/IPRATROPIUM 0.5 MG NEB (SCH) INH ×5 (03:26→20:08)
[2017-07-17] MEDS: CHLORHEXIDINE GLUCONATE 2 % 1 PACK (2 CLOTHS) TOP SCH (04:00)
[2017-07-17] MEDS: CEFEPIME INJ 2,000 MG in SODIUM CHLORIDE 0.9% INJ 100 ML IV SCH ×3 (04:11→22:22)
[2017-07-17] MEDS: LORazepam 1 MG TAB PO PRN ×3 (06:45→23:05)
[2017-07-17] MEDS: INSULIN NovoLIN REGULAR SUPPLEMENTAL SCALE SQ SCH ×4 (08:00→23:03)
[2017-07-17] MEDS: FLUoxetine HCL 20 MG CAP PO SCH (08:11)
[2017-07-17] MEDS: MULTIVITAMINS/MINERALS THERAPEUTIC TAB PO SCH (08:11)
[2017-07-17] MEDS: THIAMINE HCL 100 MG TAB PO SCH (08:11)
[2017-07-17] MEDS: PANTOPRAZOLE SOD 40 MG DELAYED RELEASE TAB PO SCH (08:11)
[2017-07-17] MEDS: FOLIC ACID 1 MG TAB PO SCH (08:11)
[2017-07-17] MEDS: methylPREDNISolone SOD SUCC 40 MG/1 ML VIAL IV PUSH SCH ×2 (08:12→20:59)
[2017-07-17] MEDS: SODIUM CHLOR 0.9% 1000 ML INJ 1,000 ML IV SCH ×2 (08:15→20:30)
[2017-07-17] MEDS: SODIUM CHLORIDE 0.9% FLUSH 10 ML FLUSH IV FLUSH SCH ×2 (08:15→21:00)
[2017-07-17] MEDS: DOCUSATE SODIUM 50 MG/SENNA 8.6 MG TAB PO SCH ×2 (08:17→21:00)
[2017-07-17] MEDS: ARTIFICIAL TEARS OPTH SOLN 15 ML BTL EACH EYE SCH ×3 (08:17→18:00)
[2017-07-17 09:47] LABS: AUTOMATED NEUTROPHIL # 6.5 TH/MM3 (1.8-7.7); BASOPHIL % 0.1 % (0.0-2.0); HEMATOCRIT 24.3 % (35.0-46.0); HEMOGLOBIN 8.2 GM/DL (11.6-15.3); LYMPH % 13.3 % (9.0-44.0); LYMPHOCYTE # 1.1 TH/MM3 (1.0-4.8); MEAN CELL VOLUME 103.6 FL (80.0-100.0); MEAN CORPUSCULAR HEMOGLOBIN 35.1 PG (27.0-34.0); MEAN CORPUSCULAR HGB CONC 33.9 % (32.0-36.0); MEAN PLATELET VOLUME 7.7 FL (7.0-11.0); MONO % 4.8 % (0.0-8.0); MONOCYTE # 0.4 TH/MM3 (0-0.9); NEUT % 81.8 % (16.0-70.0); PLATELET COUNT 148 TH/MM3 (150-450); RED BLOOD COUNT 2.34 MIL/MM3 (4.00-5.30); RED CELL DISTRIBUTION WIDTH 15.5 % (11.6-17.2); WHITE BLOOD COUNT 7.9 TH/MM3 (4.0-11.0)
[2017-07-17 10:08] LABS: BICARBONATE 21.1 MEQ/L (21.0-32.0); CALCIUM 8.3 MG/DL (8.5-10.1); CREATININE 0.34 MG/DL (0.50-1.00); MAGNESIUM 1.8 MG/DL (1.5-2.5); PHOSPHORUS 2.4 MG/DL (2.5-4.9)
[2017-07-17] MEDS: HEPARIN SODIUM - SQ 10,000 UNITS/ML VIAL SQ SCH ×2 (11:02→20:57)
[2017-07-17] MEDS: MAGNESIUM SULFATE 1 GM PREMIX 100 ML IV SCH ×2 (11:56→13:04)
--- NOTE | 2017-07-17 19:41 | HHI.PR ---
Subjective Remarks In general feeling relatively better Still on nasal cannula 3 L Still having forceful cough which is dry no phlegm production which causing her lower chest soreness Objective Vitals Vital Signs Date Time Temp Pulse Resp B/P (MAP) Pulse Ox O2 Delivery O2 Flow Rate FiO2 07/17/17 16:25 98.5 89 18 132/76 (94) 98 07/17/17 12:00 86 07/17/17 11:49 98.8 92 18 124/70 (88) 98 07/17/17 10:39 80 07/17/17 09:16 98 Nasal Cannula 3.00 07/17/17 08:15 Nasal Cannula 2.00 07/17/17 07:47 98.7 89 17 121/72 (88) 99 07/17/17 06:30 98.3 88 17 114/61 (78) 98 07/17/17 04:06 98 Nasal Cannula 3.00 07/17/17 04:05 90 07/17/17 00:09 100 07/17/17 00:00 98.9 97 18 131/72 (91) 96 07/16/17 23:21 95 Nasal Cannula 3.00 07/16/17 23:00 93 Nasal Cannula 2.00 07/16/17 20:36 100 07/16/17 20:03 98.3 97 18 132/68 (89) 97 I/O 07/16/17 07/16/17 07/16/17 07/17/17 07/17/17 07/17/17 07:00 15:00 23:00 07:00 15:00 23:00 Intake Total 585 ml 480 ml 829 ml 800 ml 100 ml Balance 585 ml 480 ml 829 ml 800 ml 100 ml Intake Oral 480 ml 600 ml IV Total 585 ml 829 ml 200 ml 100 ml # Voids 3 2 2 3 # Bowel Movements 1 Result Diagram: 07/17/17 0650 07/17/17 0650 Objective Remarks GENERAL: This is a well-nourished, well-developed patient, in no apparent distress. CARDIOVASCULAR: RRR, no gallops, or rubs. RESPIRATORY: Positive wheezing bilaterally GASTROINTESTINAL: Abdomen soft, non-tender, nondistended. Positive bowel sounds MUSCULOSKELETAL: Extremities without clubbing, cyanosis, or edema. Pedal pulses appreciated NEUROLOGICAL: Awake and alert. Moves all extremity. Normal speech.no focal neurological deficit A/P Problem List: (1) Right middle lobe pneumonia ICD Code: J18.1 - Lobar pneumonia, unspecified organism (2) Gastroesophageal reflux disease ICD Code: K21.9 - Gastro-esophageal reflux disease without esophagitis (3) Chronic, continuous use of opioids ICD Code: F11.90 - Opioid use, unspecified, uncomplicated (4) Chronic prescription benzodiazepine use ICD Code: Z79.899 - Other termite treater (current) drug therapy (5) Lymphedema of both lower extremities ICD Code: I89.0 - Lymphedema, not elsewhere classified (6) Hypoalbuminemia ICD Code: E88.09 - Other disorders of plasma-protein metabolism, not elsewhere classified (7) Macrocytic anemia ICD Code: D53.9 - Nutritional anemia, unspecified (8) History of ETOH abuse ICD Code: Z87.898 - Personal history of other specified conditions Status: Acute (9) Nausea & vomiting ICD Code: R11.2 - Nausea with vomiting, unspecified Status: Acute (10) COPD exacerbation ICD Code: J44.1 - Obstructive chronic bronchitis with exacerbation Status: Acute (11) Hypotension ICD Code: I95.9 - Hypotension, unspecified Status: Acute (12) Abdominal pain ICD Code: R10.9 - Unspecified abdominal pain Status: Acute (13) Depression ICD Code: F32.9 - Major depressive disorder, single episode, unspecified Assessment and Plan 52 years old female with 07/16: Repeat BMP tomorrow to verify on level of calcium which was low yesterday , continue current care with antibiotic, monitor improvement 07/17: Continue current care with oxygen nebulizer, Solu-Medrol, antibiotic, monitor improvement Depression/anxiety History of TIA Insomnia Alcoholism Chronic benzodiazepine use Chronic opiate use Acetaminophen 650 mg p.o. every 6 hours as needed fever Hydrocodone/acetaminophen 5/25 1 tablet every 4 hours as needed pain 1 through 5 Morphine sulfate 2 mg IV every 2 hours as needed pain 6 - 10 Patient takes oxycodone/acetaminophen 5/325 1 tablet every 6 hours as needed pain. Currently on hold Patient is on fluoxetine 20 mg p.o. daily for depression. Continue Patient takes alprazolam 1 mg twice daily as needed for anxiety at home. Resume when appropriate Patient takes zolpidem 10 mg at night for insomnia at home. Patient takes ropinirole 0.25 mg at night. Continue Thiamine, folate and multivitamin daily EtOH Monitor for DTs, CIWA if indicated Septic shock secondary to community acquired pneumonia-resolved History of coronary artery disease status post stent 1998 Moderate TR s/p 2 L normal saline. Off norepinephrine Not on any home antihypertensives She states her baseline blood pressure is 90/60 2D echocardiogram 10/07 revealed EF around 60%. No regional wall motion male. 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 Patient status post cholecystectomy. Proximal sigmoid narrowing?. Colon is full of stool. Currently n.p.o. except for medication. Start heart healthy diet Pantoprazole for GI prophylaxis. Patient is on omeprazole 40 mg p.o. daily at home Docusate sodium/senna 1 tablet twice daily for bowel regimen Continue metoclopramide 10 mg at night/home medication Macrocytic anemia Monitor CBC daily. Follow trends Coags ordered and pending Community acquired pneumonia/right middle lobe Cefepime, azithromycin day #2. Received 1 dose of metronidazole in ED Blood cultures 2, sputum, urine, urine Legionella pneumococcal antigen and influenza all ordered, f/u FEN Replace electrolytes as clinically indicated per ICU electrolyte protocol MSK: PT evaluate and treat Access Utilized peripheral IV. Central line if indicated Prophylaxis -GI -pantoprazole -DVT -SCD/heparin subcu Problem Qualifiers (1) Gastroesophageal reflux disease: Qualified Codes: K21.9 - Gastro-esophageal reflux disease without esophagitis (2) Nausea & vomiting: Qualified Codes: R11.2 - Nausea with vomiting, unspecified (3) Hypotension: Qualified Codes: I95.9 - Hypotension, unspecified (4) Abdominal pain: Qualified Codes: R10.9 - Unspecified abdominal pain (5) Depression: Qualified Codes: F33.1 - Major depressive disorder, recurrent, moderate Hawa Ivy MD Jul 17, 2017 19:41
[2017-07-17] MEDS: AZITHROMYCIN INJ 500 MG in SODIUM CHLOR 0.9% 250 ML INJ 250 ML IV SCH (20:51)
[2017-07-17] MEDS: METOCLOPRAMIDE HCL 10 MG TAB PO SCH (20:57)
[2017-07-18] VITALS (12 sets, daily range): BP systolic 66–143; BP diastolic 55–77; PULSE 77–92; RESP 18–20; TEMP 97.6–98.8; O2SAT 95–99
[2017-07-18] MEDS: RESP: ALBUTEROL 2.5 MG/IPRATROPIUM 0.5 MG NEB (SCH) INH ×7 (00:26→23:51)
[2017-07-18] MEDS: ZOLPIDEM TARTRATE 10 MG TAB PO PRN ×2 (01:10→23:37)
[2017-07-18] MEDS: CHLORHEXIDINE GLUCONATE 2 % 1 PACK (2 CLOTHS) TOP SCH (04:00)
[2017-07-18] MEDS: CEFEPIME INJ 2,000 MG in SODIUM CHLORIDE 0.9% INJ 100 ML IV SCH ×3 (05:25→21:06)
[2017-07-18] MEDS: MORPHINE SULFATE 4 MG/ML INJ IV PUSH PRN ×2 (07:57→10:26)
[2017-07-18] MEDS: INSULIN NovoLIN REGULAR SUPPLEMENTAL SCALE SQ SCH ×4 (07:58→21:00)
[2017-07-18] MEDS: SODIUM CHLORIDE 0.9% FLUSH 10 ML FLUSH IV FLUSH SCH ×2 (07:58→21:04)
[2017-07-18] MEDS: SODIUM CHLOR 0.9% 1000 ML INJ 1,000 ML IV SCH ×3 (08:25→20:20)
[2017-07-18] MEDS: HEPARIN SODIUM - SQ 10,000 UNITS/ML VIAL SQ SCH ×2 (09:20→21:03)
[2017-07-18] MEDS: ARTIFICIAL TEARS OPTH SOLN 15 ML BTL EACH EYE SCH ×3 (09:21→18:00)
[2017-07-18] MEDS: methylPREDNISolone SOD SUCC 40 MG/1 ML VIAL IV PUSH SCH ×2 (09:21→21:03)
[2017-07-18] MEDS: FLUoxetine HCL 20 MG CAP PO SCH (09:21)
[2017-07-18] MEDS: MULTIVITAMINS/MINERALS THERAPEUTIC TAB PO SCH (09:21)
[2017-07-18] MEDS: FOLIC ACID 1 MG TAB PO SCH (09:21)
[2017-07-18] MEDS: PANTOPRAZOLE SOD 40 MG DELAYED RELEASE TAB PO SCH (09:21)
[2017-07-18] MEDS: THIAMINE HCL 100 MG TAB PO SCH (09:21)
[2017-07-18] MEDS: DOCUSATE SODIUM 50 MG/SENNA 8.6 MG TAB PO SCH ×2 (09:21→21:04)
[2017-07-18] MEDS: guaiFENesin/DEXTROMETHORPHAN 200 MG/20 MG/10 ML CUP PO PRN ×2 (12:07→18:48)
[2017-07-18] MEDS: ALPRAZolam 1 MG TAB PO PRN ×2 (12:07→21:03)
[2017-07-18] MEDS: ACETAMINOPHEN/HYDROcodone 325 MG/5 MG TAB PO PRN (12:07)
[2017-07-18] MEDS: ACETAMINOPHEN/HYDROcodone 325 MG/7.5 MG TAB PO PRN ×2 (15:59→19:49)
--- NOTE | 2017-07-18 19:42 | HHI.PR ---
Subjective Remarks Slow improvement Still complaining of lower chest soreness because of the cough, also complaining of left lower quadrant abdominal pain that shooting to her left leg Objective Vitals Vital Signs Date Time Temp Pulse Resp B/P (MAP) Pulse Ox O2 Delivery O2 Flow Rate FiO2 07/18/17 16:48 98.1 85 20 109/55 (73) 97 07/18/17 16:00 81 07/18/17 13:44 79 07/18/17 12:51 97.6 78 20 143/72 (95) 99 07/18/17 10:31 98.0 77 20 66/ 99 07/18/17 08:30 86 07/18/17 07:14 99 Nasal Cannula 3.00 07/18/17 05:55 Nasal Cannula 2.00 07/18/17 05:00 97.9 88 18 140/77 (98) 97 07/18/17 00:00 98.8 92 18 134/70 (91) 95 07/17/17 20:11 98 Nasal Cannula 2.50 07/17/17 20:05 82 07/17/17 20:00 98.3 84 18 129/63 (85) 97 I/O 07/17/17 07/17/17 07/17/17 07/18/17 07/18/17 07/18/17 07:00 15:00 23:00 07:00 15:00 23:00 Intake Total 829 ml 800 ml 499 ml 695 ml 720 ml Balance 829 ml 800 ml 499 ml 695 ml 720 ml Intake Oral 600 ml 720 ml IV Total 829 ml 200 ml 499 ml 695 ml # Voids 2 2 3 3 3 Result Diagram: 07/17/17 0650 07/17/17 0650 Objective Remarks GENERAL: This is a well-nourished, well-developed patient, in no apparent distress. CARDIOVASCULAR: RRR, no gallops, or rubs. RESPIRATORY: Positive wheezing bilaterally GASTROINTESTINAL: Abdomen soft, non-tender, nondistended. Positive bowel sounds MUSCULOSKELETAL: Extremities without clubbing, cyanosis, or edema. Pedal pulses appreciated NEUROLOGICAL: Awake and alert. Moves all extremity. Normal speech.no focal neurological deficit A/P Problem List: (1) Right middle lobe pneumonia ICD Code: J18.1 - Lobar pneumonia, unspecified organism (2) Gastroesophageal reflux disease ICD Code: K21.9 - Gastro-esophageal reflux disease without esophagitis (3) Chronic, continuous use of opioids ICD Code: F11.90 - Opioid use, unspecified, uncomplicated (4) Chronic prescription benzodiazepine use ICD Code: Z79.899 - Other staffing manager (current) drug therapy (5) Lymphedema of both lower extremities ICD Code: I89.0 - Lymphedema, not elsewhere classified (6) Hypoalbuminemia ICD Code: E88.09 - Other disorders of plasma-protein metabolism, not elsewhere classified (7) Macrocytic anemia ICD Code: D53.9 - Nutritional anemia, unspecified (8) History of ETOH abuse ICD Code: Z87.898 - Personal history of other specified conditions Status: Acute (9) Nausea & vomiting ICD Code: R11.2 - Nausea with vomiting, unspecified Status: Acute (10) COPD exacerbation ICD Code: J44.1 - Obstructive chronic bronchitis with exacerbation Status: Acute (11) Hypotension ICD Code: I95.9 - Hypotension, unspecified Status: Acute (12) Abdominal pain ICD Code: R10.9 - Unspecified abdominal pain Status: Acute (13) Depression ICD Code: F32.9 - Major depressive disorder, single episode, unspecified Assessment and Plan 52 years old female with 07/18: We will switch to prednisone, and switch antibiotic to p.o., monitor, will need Symbicort at discharge, will order lumbar spine CT to assess for her back pain that transferred to the left leg, previous CT abdomen showing 3 cm oriented area of the sigmoid that is not distended like the rest of the sigmoid which is concerning of possible underlying issue need to be followed up as an outpatient Depression/anxiety History of TIA Insomnia Alcoholism Chronic benzodiazepine use Chronic opiate use Acetaminophen 650 mg p.o. every 6 hours as needed fever Hydrocodone/acetaminophen 5/25 1 tablet every 4 hours as needed pain 1 through 5 Morphine sulfate 2 mg IV every 2 hours as needed pain 6 - 10 Patient takes oxycodone/acetaminophen 5/325 1 tablet every 6 hours as needed pain. Currently on hold Patient is on fluoxetine 20 mg p.o. daily for depression. Continue Patient takes alprazolam 1 mg twice daily as needed for anxiety at home. Resume when appropriate Patient takes zolpidem 10 mg at night for insomnia at home. Patient takes ropinirole 0.25 mg at night. Continue Thiamine, folate and multivitamin daily EtOH Monitor for DTs, CIWA if indicated Septic shock secondary to community acquired pneumonia-resolved History of coronary artery disease status post stent 1998 Moderate TR s/p 2 L normal saline. Off norepinephrine Not on any home antihypertensives She states her baseline blood pressure is 90/60 2D echocardiogram 10/07 revealed EF around 60%. No regional wall motion male. 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 Patient status post cholecystectomy. Proximal sigmoid narrowing?. Colon is full of stool. Currently n.p.o. except for medication. Start heart healthy diet Pantoprazole for GI prophylaxis. Patient is on omeprazole 40 mg p.o. daily at home Docusate sodium/senna 1 tablet twice daily for bowel regimen Continue metoclopramide 10 mg at night/home medication Macrocytic anemia Monitor CBC daily. Follow trends Coags ordered and pending Community acquired pneumonia/right middle lobe Cefepime, azithromycin day #2. Received 1 dose of metronidazole in ED Blood cultures 2, sputum, urine, urine Legionella pneumococcal antigen and influenza all ordered, f/u FEN Replace electrolytes as clinically indicated per ICU electrolyte protocol MSK: PT evaluate and treat Access Utilized peripheral IV. Central line if indicated Prophylaxis -GI -pantoprazole -DVT -SCD/heparin subcu Problem Qualifiers (1) Gastroesophageal reflux disease: Qualified Codes: K21.9 - Gastro-esophageal reflux disease without esophagitis (2) Nausea & vomiting: Qualified Codes: R11.2 - Nausea with vomiting, unspecified (3) Hypotension: Qualified Codes: I95.9 - Hypotension, unspecified (4) Abdominal pain: Qualified Codes: R10.9 - Unspecified abdominal pain (5) Depression: Qualified Codes: F33.1 - Major depressive disorder, recurrent, moderate Hawa Ivy MD Jul 18, 2017 19:42
[2017-07-18] MEDS: METOCLOPRAMIDE HCL 10 MG TAB PO SCH (21:04)
--- NOTE | 2017-07-18 21:08 | RADRPT ---
EXAM DATE/TIME: 07/18/2017 20:09 [facility] COMPARISON: CT ABDOMEN & PELVIS W CONTRAST, July 14, 2017, 18:36. CT ABDOMEN & PELVIS W/O CONTRAST, April 10, 2017, 22:18. INDICATIONS : Back and leg pain. RADIATION DOSE: 25.64 CTDIvol (mGy) MEDICAL HISTORY : Cardiovascular disease. Hypertension. SURGICAL HISTORY : Appendectomy. ENCOUNTER: Initial ACUITY: 1 day PAIN SCALE: 5/10 LOCATION: [facility] TECHNIQUE: Volumetric scanning of the lumbar spine was performed. Multiplanar reconstructions in the sagittal, coronal and oblique axial planes were performed. Using automated exposure control and adjustment of the mA and/or kV according to patient size, radiation dose was kept as low as reasonably achievable t o obtain optimal diagnostic quality images. DICOM format image data is available electronically for review and comparison. FINDINGS: VERTEBRAE: Transpedicular screws are seen at the L5 and S1 levels with stabilization cages at the L5 disc S1 dis c space. The patient is status post laminectomy at L5. There is postoperative change at the posterior medial right iliac bone likely related to bone harvesting. There is an area of chronic fracturing at the right L3 transverse process. The edges are well-corticated. This was present on a prior CT exami [email or web address]. ALIGNMENT: There is minimal anterior subluxation of L3 on L4 in the order of 3-4 mm. Minimal pleural effusions are seen. T12-L1: The thecal sac has a normal diameter. No evidence of disc bulge or protrusion. The neural foramina are patent bilaterally. L1-L2: The thecal sac has a normal diameter. No evidence of disc bulge or protrusion. The neural foramina are patent bilaterally. L2-L3: The thecal sac has a normal diameter. No evidence of disc bulge or protrusion. The neural foramina are patent bilaterally. L3-L4: Again noted is the minimal anterior subluxation of L3 on L4. The disc demonstrates decreased height. There is minimal bulging. Significant stenosis is not seen. There is mild facet hypertrophy. L4-L5: The thecal sac has a normal diameter. There is minimal diffuse disc bulge. The neural foramina are p atent bilaterally. L5-S1: The thecal sac has a normal diameter. No evidence of disc bulge or protrusion. The neural foramina are patent bilaterally. CONCLUSION: 1. Post surgical change at the L5-S1 level. 2. Minimal anterior subluxation of L3 on L4 with minimal bulging. 3. Minimal bulging at the L4-L5 level. Mal Gee MD on July 18, 2017 at 21:00 Board Certified Radiologist. This report was verified electronically.
[2017-07-18] MEDS: AZITHROMYCIN INJ 500 MG in SODIUM CHLOR 0.9% 250 ML INJ 250 ML IV SCH (22:20)
[2017-07-19] VITALS: BP 128/66; PULSE 85; RESP 18; TEMP 98.3; O2SAT 100
[2017-07-19] MEDS: CHLORHEXIDINE GLUCONATE 2 % 1 PACK (2 CLOTHS) TOP SCH (03:04)
[2017-07-19] MEDS: ACETAMINOPHEN/HYDROcodone 325 MG/7.5 MG TAB PO PRN ×3 (03:09→12:30)
[2017-07-19 03:49] VITALS: PULSE 71
[2017-07-19 05:00] VITALS: BP 126/67; PULSE 69; RESP 18; TEMP 97.8; O2SAT 100
[2017-07-19] MEDS: CEFEPIME INJ 2,000 MG in SODIUM CHLORIDE 0.9% INJ 100 ML IV SCH (05:24)
[2017-07-19 08:00] VITALS: BP 141/65; PULSE 65; PULSE 74; RESP 18; TEMP 97.6; O2SAT 100
[2017-07-19] MEDS: methylPREDNISolone SOD SUCC 40 MG/1 ML VIAL IV PUSH SCH (08:42)
[2017-07-19] MEDS: PANTOPRAZOLE SOD 40 MG DELAYED RELEASE TAB PO SCH (08:42)
[2017-07-19] MEDS: FLUoxetine HCL 20 MG CAP PO SCH (08:42)
[2017-07-19] MEDS: FOLIC ACID 1 MG TAB PO SCH (08:42)
[2017-07-19] MEDS: THIAMINE HCL 100 MG TAB PO SCH (08:42)
[2017-07-19] MEDS: MULTIVITAMINS/MINERALS THERAPEUTIC TAB PO SCH (08:42)
[2017-07-19] MEDS: SODIUM CHLORIDE 0.9% FLUSH 10 ML FLUSH IV FLUSH SCH (08:43)
[2017-07-19] MEDS: ARTIFICIAL TEARS OPTH SOLN 15 ML BTL EACH EYE SCH ×2 (08:43→13:06)
[2017-07-19] MEDS: SODIUM CHLOR 0.9% 1000 ML INJ 1,000 ML IV SCH (08:43)
[2017-07-19] MEDS: DOCUSATE SODIUM 50 MG/SENNA 8.6 MG TAB PO SCH (08:43)
[2017-07-19] MEDS: HEPARIN SODIUM - SQ 10,000 UNITS/ML VIAL SQ SCH (08:43)
[2017-07-19] MEDS: INSULIN NovoLIN REGULAR SUPPLEMENTAL SCALE SQ SCH ×2 (08:44→12:24)
[2017-07-19] MEDS: ALPRAZolam 1 MG TAB PO PRN (10:12)
[2017-07-19] MEDS: guaiFENesin/DEXTROMETHORPHAN 200 MG/20 MG/10 ML CUP PO PRN (10:12)
[2017-07-19] MEDS ORDERED: FOLI1TAB6 PO (10:33)
[2017-07-19] MEDS ORDERED: THIA100 PO (10:33)
[2017-07-19] MEDS ORDERED: LEVA750T9 PO (10:33)
[2017-07-19] MEDS ORDERED: PRED5PAK PO (10:33)
[2017-07-19] MEDS ORDERED: SYMB160A INH (10:34)
--- NOTE | 2017-07-19 10:35 | HHI.FF ---
Face to Face Verification Diagnosis: (1) COPD exacerbation (2) Right middle lobe pneumonia (3) History of ETOH abuse (4) Abdominal pain Physical Therapy Order: Evaluate and Treat Occupational Therapy Order: Evaluate and Treat Home Health Nursing Order: Medical education Oxygen administration education Nursing assessment with vital signs I have seen patient Shelley Duarte on 07/19/17. My clinical findings support the need for the requested home health care services because: Patient has SOB Med compliance is questionable I certify that my clinical findings support that this patient is homebound because: Unsafe to leave home unassisted Hawa Ivy MD Jul 19, 2017 10:35
[2017-07-19 12:00] VITALS: BP 154/69; PULSE 70; RESP 18; TEMP 98.6; O2SAT 96
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
[2017-07-20] MEDS ORDERED: predniSONE 20 MG TAB PO SCH (09:00)
[2017-07-20] MEDS ORDERED: LEVOFLOXACIN 750 MG TAB PO SCH (09:00)
== END 2017-07-19 15:42 | disposition home or self-care (01) | DRG 871 ==
LOC: NEPC 16:44 → NEDA 20:22 → HIME 22:25 → N05A 07-15 11:51
PROVIDERS: ADMIT Hospitalist; ATTEND Hospitalist
PROC: 0T9B70Z Drainage of Bladder with Drainage Device, Via Natural or Artificial Opening (ICD-10-PCS; principal; 2017-07-14)
PROC: 3E0F7GC Introduction of Other Therapeutic Substance into Respiratory Tract, Via Natural or Artificial Opening (ICD-10-PCS; 2017-07-14)
DX: A41.9 Sepsis, unspecified organism (principal); J18.1 Lobar pneumonia, unspecified organism; J96.20 Acute and chronic respiratory failure, unspecified whether with hypoxia or hypercapnia; R65.21 Severe sepsis with septic shock; I11.0 Hypertensive heart disease with heart failure; J44.0 Chronic obstructive pulmonary disease with (acute) lower respiratory infection; K50.90 Crohn's disease, unspecified, without complications; I50.9 Heart failure, unspecified; K75.81 Nonalcoholic steatohepatitis (NASH); F33.1 Major depressive disorder, recurrent, moderate; J44.1 Chronic obstructive pulmonary disease with (acute) exacerbation; R10.12 Left upper quadrant pain; I07.1 Rheumatic tricuspid insufficiency; E88.09 Other disorders of plasma-protein metabolism, not elsewhere classified; F17.210 Nicotine dependence, cigarettes, uncomplicated; F10.20 Alcohol dependence, uncomplicated; Z86.73 Personal history of transient ischemic attack (TIA), and cerebral infarction without residual deficits; Z87.410 Personal history of cervical dysplasia; Z95.5 Presence of coronary angioplasty implant and graft; I25.10 Atherosclerotic heart disease of native coronary artery without angina pectoris; K21.9 Gastro-esophageal reflux disease without esophagitis; Z79.891 Long term (current) use of opiate analgesic; F13.90 Sedative, hypnotic, or anxiolytic use, unspecified, uncomplicated; I89.0 Lymphedema, not elsewhere classified; D53.9 Nutritional anemia, unspecified; Z79.899 Other long term (current) drug therapy; F41.9 Anxiety disorder, unspecified; M54.5 Low back pain; G89.29 Other chronic pain; G47.00 Insomnia, unspecified; E11.9 Type 2 diabetes mellitus without complications; Z82.49 Family history of ischemic heart disease and other diseases of the circulatory system; Z99.81 Dependence on supplemental oxygen
CPT/HCPCS: 71045; 72131; 74177; 80048; 80053; 80307; 81001; 82948; 83605; 83735; 84100; 84132; 84443; 85025; 85610; 85730; 87040; 87449; 87641; 87804; 93005; 94150; 94618; 94640; 94664; 96365; 96366; 96375; 99292; J0456; J0692; J1644; J2270; J2405; J2920; J2930; J3475; J7030; J7050; J7613; P9045; Q9967